=== PATIENT | female | born 1945 | race Caucasian/White ===

== ENCOUNTER 2018-02-02 16:05 | Inpatient (IN) | payer OTHER ==
--- OUTSIDE RECORDS SUMMARY | 2018-02-02 16:10 | XMS REPORT | Clinical Summary ---
:1945 Author Organization [facility] Address [address] [place] [address] Phone Care Team Providers Name Role Phone Unavailable Primary Care Provider Unavailable Allergies No Known Allergies Current Medications Prescription Sig. Disp. Refills Start Date End Date Status sucralfate (CARAFATE) Take 1 g by Active 1 gram mouth 4 (four) tabletIndications: times daily. Liver mass, Hepatic fibrosis (HCC), Cancer screening, Elevated tumor markers levothyroxine Take 137 mcg by Active (SYNTHROID, mouth Every LEVOTHROID) 137 MCG morning on an tabletIndications: empty stomach. Liver mass, Hepatic fibrosis (HCC), Cancer screening, Elevated tumor markers furosemide (LASIX) 40 Take 40 mg by Active MG tabletIndications: mouth 2 (two) Liver mass, Hepatic times daily. fibrosis (HCC), Cancer screening, Elevated tumor markers gabapentin Take 300 mg by Active (NEURONTIN) 300 MG mouth 3 (three) capsuleIndications: times daily. Liver mass, Hepatic fibrosis (HCC), Cancer screening, Elevated tumor markers omeprazole (PRILOSEC) Take 20 mg by Active 20 MG mouth daily. capsuleIndications: Liver mass, Hepatic fibrosis (HCC), Cancer screening, Elevated tumor markers POTASSIUM CHLORIDE Take by mouth. Active ORALIndications: Liver mass, Hepatic fibrosis (HCC), Cancer screening, Elevated tumor markers atenolol (TENORMIN) Take 50 mg by Active 50 MG mouth daily. tabletIndications: Liver mass, Hepatic fibrosis (HCC), Cancer screening, Elevated tumor markers PARoxetine (PAXIL) 10 Take 10 mg by Active MG tabletIndications: mouth every Liver mass, Hepatic morning. fibrosis (HCC), Cancer screening, Elevated tumor markers aspirin 81 MG EC Take 81 mg by Active tabletIndications: mouth daily. Liver mass, Hepatic fibrosis (HCC), Cancer screening, Elevated tumor markers DULoxetine (CYMBALTA) Take 60 mg by 01/15/2018 Discontinued 60 MG capsule mouth daily. meloxicam (MOBIC) 15 Take 15 mg by 01/15/2018 Discontinued MG tablet mouth daily. pravastatin Take 40 mg by 01/15/2018 Discontinued (PRAVACHOL) 40 MG mouth daily. tablet levothyroxine Take 200 mcg by 01/15/2018 Discontinued (SYNTHROID, mouth daily. LEVOTHROID) 200 MCG tablet atenolol (TENORMIN) Take 25 mg by 01/15/2018 Discontinued 25 MG tablet mouth daily. Active Problems Problem Noted Date Hepatic fibrosis (HCC) 01/15/2018 Elevated tumor markers 01/15/2018 Peripheral edema 01/15/2018 Fatty liver 01/15/2018 Liver mass 01/11/2013 Metabolic syndrome 01/11/2013 Screening for endocrine/metabolic/immunity disorders 01/11/2013 Obesity 01/11/2013 Hyperlipidemia 01/11/2013 Cancer screening 01/11/2013 Encounters Date Type Specialty Care Team Description 02/02/2018 Abstract Hepatology Diana Silvestre MA 01/23/2018 Hospital Encounter Radiology O'Marisela, Liver mass;Hepatic Em Tejada MD fibrosis (HCC);Cancer screening;Elevated tumor markers 01/15/2018 Office Visit Transplant Ash Villalpando, Liver mass (Primary Hepatology MD Dx);Hepatic O'Marisela, fibrosis Em Tejada MD (HCC);Cancer screening;Elevated tumor markers;Screening for endocrine/metabolic /immunity disorders;Periphera l edema;Fatty liver 01/09/2018 Documentation Transplant Shira Siddiqi MA after 02/01/2017 Family History Medical History Relation Name Comments Brain cancer Brother Cancer Father Heart disease Mother Heart failure Mother Cancer Sister Heart disease Sister Relation Name Status Comments Brother Brother Father Mother Sister Social History Tobacco Use Types Packs/Day Years Used Date Never Smoker Smokeless Tobacco: Never Used Alcohol Use Drinks/Week oz/Week Comments No Sex Assigned at Date Recorded Not on file Last Filed Vital Signs Vital Sign Reading Time Taken Blood Pressure 108/69 01/15/2018 9:36 AM CDT Pulse 73 01/15/2018 9:36 AM CDT Temperature 36.8 C (98.2 F) 01/15/2018 9:36 AM CDT Respiratory Rate 20 01/15/2018 9:36 AM CDT Oxygen Saturation 95% 01/15/2018 9:36 AM CDT Inhaled Oxygen Concentration - - Weight 100.1 kg (220 lb 9.6 oz) 01/15/2018 9:36 AM CDT Height 170.2 cm (5' 7") 01/15/2018 9:36 AM CDT Body Mass Index 34.55 01/15/2018 9:36 AM CDT Plan of Treatment Date Type Specialty Care Team Description 02/05/2018 Office Visit Transplant Hepatology Resource, [facility] Hepatobiliary Surgery Health Maintenance Due Date Last Done Comments INFLUENZA VACCINE 03/09/2018 Results MRI abdomen with and without contrast (01/23/2018 9:23 AM) Specimen Performing Laboratory [employer] Narrative FINAL REPORT MRI of the abdomen with and without contrast Clinical History: right lobe cystic liver mass Technique: Multiplanar and multisequence MR images of the abdomen are obtained before and after intravenous contrast administration. Contrast is administered to evaluate neoplasm and vasculature. Comparison: MRI dated November 04, 2013, January 20, 2013, and CT dated May 22, 2012 (performed at an outside institution) Discussion: Liver is cirrhotic, progressed since the prior exam. Previously seen cystic lesion at the right hepatic dome has significantly decreased in size, now measuring 3.6 x 3.2 cm, compared to 9.1 x 9.7 cm previously. It demonstrates a T2 hypointense and mildly enhancing rim. No nodular component is identified. In the posterior right hepatic lobe, there is a new vaguely T1 and T2 hyperintense lesion measuring approximately 3.3 x 3.5 cm, demonstrating gradual centripetal enhancement. There is mild biliary ductal dilatation peripheral to this lesion, which is also new. It is highly suspicious for neoplasm, possibly a cholangiocarcinoma. A T2 dark nonenhancing focus in segment 4 of the liver is unchanged, compatible with a granuloma. Gallbladder has been removed. CBD is mildly prominent, measuring 9 mm in diameter. Hepatic vasculature is patent. The main portal vein measures 14 mm. Spleen is enlarged and measures 14.3 cm sagittally. It contains several stable nonenhancing calcified granulomas. The pancreas, adrenal glands and kidneys are unremarkable. A few mildly enlarged sindy abscess lymph nodes are nonspecific. No ascites. Varices are present. Osseous structures demonstrate degenerative changes. No suspicious bony lesion is identified. In the right breast, there is a 2.5 cm enhancing nodular focus, more prominent compared to the prior studies. Impression: Cirrhosis, and splenomegaly. Previously seen complex cystic lesion at the right hepatic dome has significantly decreased in size, demonstrate mild rim enhancement, but no solid component identified. New 3.5 x 3.3 cm lesion in posterior right hepatic lobe, demonstrating mild gradual enhancement, and peripheral biliary ductal dilatation, highly suspicious for neoplasm, such as cholangiocarcinoma. A 2.5 cm enhancing nodular focus in the right breast may reflect confluent glandular tissue, but appears more prominent compared to the prior exams. Suggest sonographic/mammographic correlation when clinically appropriate. Status post cholecystectomy. Mild CBD dilation. Signed: Elli Venegas MD Report Verified Date/Time:01/23/2018 10:16:08 Reading Location: [address] Radiology Reading Room Procedure Note Interface, External Ris In - 01/23/2018 10:18 AM CDT FINAL REPORT MRI of the abdomen with and without contrast Clinical History: right lobe cystic liver mass Technique: Multiplanar and multisequence MR images of the abdomen are obtained before and after intravenous contrast administration. Contrast is administered to evaluate neoplasm and vasculature. Comparison: MRI dated November 04, 2013, January 20, 2013, and CT dated May 22, 2012 (performed at an outside institution) Discussion: Liver is cirrhotic, progressed since the prior exam. Previously seen cystic lesion at the right hepatic dome has significantly decreased in size, now measuring 3.6 x 3.2 cm, compared to 9.1 x 9.7 cm previously. It demonstrates a T2 hypointense and mildly enhancing rim. No nodular component is identified. In the posterior right hepatic lobe, there is a new vaguely T1 and T2 hyperintense lesion measuring approximately 3.3 x 3.5 cm, demonstrating gradual centripetal enhancement. There is mild biliary ductal dilatation peripheral to this lesion, which is also new. It is highly suspicious for neoplasm, possibly a cholangiocarcinoma. A T2 dark nonenhancing focus in segment 4 of the liver is unchanged, compatible with a granuloma. Gallbladder has been removed. CBD is mildly prominent, measuring 9 mm in diameter. Hepatic vasculature is patent. The main portal vein measures 14 mm. Spleen is enlarged and measures 14.3 cm sagittally. It contains several stable nonenhancing calcified granulomas. The pancreas, adrenal glands and kidneys are unremarkable. A few mildly enlarged sindy abscess lymph nodes are nonspecific. No ascites. Varices are present. Osseous structures demonstrate degenerative changes. No suspicious bony lesion is identified. In the right breast, there is a 2.5 cm enhancing nodular focus, more prominent compared to the prior studies. Impression: Cirrhosis, and splenomegaly. Previously seen complex cystic lesion at the right hepatic dome has significantly decreased in size, demonstrate mild rim enhancement, but no solid component identified. New 3.5 x 3.3 cm lesion in posterior right hepatic lobe, demonstrating mild gradual enhancement, and peripheral biliary ductal dilatation, highly suspicious for neoplasm, such as cholangiocarcinoma. A 2.5 cm enhancing nodular focus in the right breast may reflect confluent glandular tissue, but appears more prominent compared to the prior exams. Suggest sonographic/mammographic correlation when clinically appropriate. Status post cholecystectomy. Mild CBD dilation. Signed: Elli Venegas MD Report Verified Date/Time: 01/23/2018 10:16:08 Reading Location: [address] Radiology Reading Room Hepatitis A antibody, IgG (01/15/2018 10:58 AM) Component Value Ref Range Hep A IgG Nonreactive Nonreactive Specimen Performing Laboratory Blood [facility] [address] [address] CBC with platelet count + automated diff (01/15/2018 10:58 AM) Component Value Ref Range WBC 7.3 3.5 - 10.5 K/L RBC 5.24 (H) 3.93 - 5.22 M/L Hemoglobin 13.2 11.2 - 15.7 GM/DL Hematocrit 44.8 34.1 - 44.9 % MCV 85.5 79.4 - 94.8 fL MCH 25.2 (L) 25.6 - 32.2 pg MCHC 29.5 (L) 32.2 - 35.5 GM/DL RDW 16.3 (H) 11.7 - 14.4 % Platelets 177 150 - 450 K/CU MM MPV 12.4 (H) 9.4 - 12.3 fL nRBC 0 0 - 0 /100 WBC % Neutros 65 % % Lymphs 24 % % Monos 7 % % Eos 2 % % Baso 2 % # Neutros 4.78 1.56 - 6.13 K/L # Lymphs 1.73 1.18 - 3.74 K/L # Monos 0.54 (H) 0.24 - 0.36 K/L # Eos 0.15 0.04 - 0.36 K/L # Baso 0.11 (H) 0.01 - 0.08 K/L Immature Granulocytes-Relative 0 0 - 1 % Specimen Performing Laboratory Blood [address] [address] Hepatitis A antibody, IgM (01/15/2018 10:58 AM) Component Value Ref Range Hep A IgM Nonreactive Nonreactive Specimen Performing Laboratory Blood [address] [address] Carbohydrate antigen 19-9 (CA 19-9) (01/15/2018 10:58 AM) Component Value Ref Range CA 19-9 208 (H) <34 U/mL Comment: This test was performed using the Siemens (Adatao) Chemiluminescent method. Values obtained from different assay methods cannot be used interchangeably. CA19-9 levels, regardless of value, should not be interpreted as absolute evidence of the presence or absence of disease. Specimen Performing Laboratory Blood [facility] [address] [address] Narrative Performing Lab [facility] [address] [address] Benjie Vazquez MD, PhD, REINIER Alpha fetoprotein (AFP), tumor marker (01/15/2018 10:58 AM) Component Value Ref Range Alpha-Fetoprotein 3.4 <10.0 ng/mL Specimen Performing Laboratory Blood [address] [address] CBC with platelet count + automated diff (01/15/2018 10:58 AM) Specimen Performing Laboratory Blood [facility] ([facility]) Narrative The following orders were created for panel order CBC with platelet count + automated diff. Procedure Abnormality Status --------- ------ CBC with platelet count ...[[id number]]AbnormalFinal result Please view results for these tests on the individual orders. Anti-Nuclear Antibody (MESSI) (01/15/2018 10:58 AM) Component Value Ref Range MESSI Negative Negative Specimen Performing Laboratory [address] [address] Narrative Test performed by IFA method. Test performed by IFA method. Ferritin (01/15/2018 10:58 AM) Component Value Ref Range Ferritin 33 5 - 275 ng/mL Specimen Performing Laboratory Blood [address] [address] Carcinoembryonic Antigen (CEA) (01/15/2018 10:58 AM) Component Value Ref Range CEA, SERUM 1.6 0.0 - 5.0 ng/mL Specimen Performing Laboratory [address] [address] Iron, TIBC, % sat. (without ferritin) (01/15/2018 10:57 AM) Component Value Ref Range Iron 41 40 - 160 ug/dL TIBC 358 250 - 450 ug/dL Iron % Saturation 11 (L) 20 - 55 % Specimen Performing Laboratory Blood [address] [address] Hepatitis C antibody (01/15/2018 10:57 AM) Component Value Ref Range Hepatitis C Ab Nonreactive Nonreactive Specimen Performing Laboratory Blood [address] [address] Actin (Smooth Muscle) Antibody, IgG (01/15/2018 10:57 AM) Component Value Ref Range Anti-Smooth Muscle Ab <20 See Note: U Comment: Reference Range: <20 NEGATIVE > OR=20 POSITIVE Antibodies recognizing actin are the main component of smooth muscle antibodies associated with autoimmune liver disease. Actin antibodies are found in approximately 75% of patients with autoimmune hepatitis (AIH) type 1, approximately 65% of patients with autoimmune cholangitis, approximately 30% of patients with primary biliary cirrhosis, and approximately 2% of healthy people. High values are closely correlated with AIH type 1. Specimen Performing Laboratory Blood [facility] [address] [address] Narrative Performing Lab [facility] [address] [address] Benjie Vazquez MD, PhD, REINIER Hepatitis B core antibody, total (01/15/2018 10:57 AM) Component Value Ref Range Hep B Core Total Ab Nonreactive Nonreactive Specimen Performing Laboratory Blood [address] [address] Hepatitis B surface antibody (01/15/2018 10:57 AM) Component Value Ref Range Hep B S Ab <8.0 <8.0 mIU/mL Specimen Performing Laboratory Blood [address] [address] Hepatitis B surface antigen (01/15/2018 10:57 AM) Component Value Ref Range hepatitis B Surface Ag Nonreactive Nonreactive Specimen Performing Laboratory Blood [address] [address] Prothrombin time/INR (01/15/2018 10:57 AM) Component Value Ref Range Protime 16.8 (H) 11.7 - 14.7 seconds INR 1.4 <=5.9 Specimen Performing Laboratory [address] [address] Narrative RECOMMENDED COUMADIN/WARFARIN INR THERAPY RANGES STANDARD DOSE: 2.0 - 3.0 Includes: PROPHYLAXIS for venous thrombosis, systemic embolization; TREATMENT for venous thrombosis and/or pulmonary embolus. HIGH RISK: Target INR is 2.5-3.5 for patients with mechanical heart valves. Cancer Antigen 125 (CA 125) (01/15/2018 10:57 AM) Component Value Ref Range CA 125 221 (H) <35 U/mL Comment: This test was performed using the [employer]al[employer] [place] Chemiluminescent method. Values obtained from different assay methods cannot be used interchangeably. CA 125 levels, regardless of value, should not be interpreted as absolute evidence of the presence or absence of disease. Specimen Performing Laboratory Blood [facility] [id number] [place] [address] Narrative Performing Lab [facility] [address] [address] Benjie Vazquez MD, PhD, REINIER Gamma Glutamyl Transferase (GGT) (01/15/2018 10:57 AM) Component Value Ref Range GGT 130 (H) 9 - 64 U/L Specimen Performing Laboratory Blood [address] [address] Hepatic function panel (01/15/2018 10:57 AM) Component Value Ref Range Protein, Total 7.7 6.0 - 8.3 gm/dL Albumin 3.5 3.5 - 5.0 g/dL Total Bilirubin 1.2 0.2 - 1.2 mg/dL Bilirubin, Direct 0.6 (H) 0.1 - 0.5 mg/dL Alkaline Phosphatase 136 40 - 150 U/L AST 46 (H) 5 - 34 U/L ALT 18 6 - 55 U/L Specimen Performing Laboratory Blood [address] [address] Basic Metabolic Panel (01/15/2018 10:57 AM) Component Value Ref Range Sodium 142 136 - 145 meq/L Potassium 3.5 3.5 - 5.1 meq/L Chloride 99 98 - 107 meq/L CO2 31 (H) 22 - 29 meq/L BUN 14 7 - 21 mg/dL Creatinine 0.96 0.57 - 1.25 mg/dL Glucose 161 (H) 70 - 105 mg/dL Calcium 9.0 8.4 - 10.2 mg/dL EGFR 57Comment: ESTIMATED GFR IS NOT ACCURATE mL/min/1.73 sq m CREATININE CLEARANCE IN PREDICTING GLOMERULAR FILTRATION RATE. ESTIMATED GFR IS NOT APPLICABLE FOR DIALYSIS PATIENTS. Specimen Performing Laboratory Blood [address] [address] after 02/01/2017
--- OUTSIDE RECORDS SUMMARY | 2018-02-02 16:11 | XMS REPORT ---
:11/12/1944 [facility] Address [address] [place] [address] [address]. [address] [place] [address] Care Team Providers Name Role Phone GENETABRAHAM ALAN Unavailable Unavailable CRISTOBAL MCCALLUM Unavailable Unavailable MARIA TERESA MACIAS Unavailable Unavailable Problems This patient has no known problems. Allergies, Adverse Reactions, Alerts This patient has no known allergies or adverse reactions. Medications This patient has no known medications. Results Test Description Test Time Test Comments Text Results Atomic Results Result Comments MR, ABDOMEN, 2018-01-23 Referring: FINAL REPORT PATIENT ID: WITH 10:16:00 Cristobal Mccallum [id number] MRI of the abdomen (Old/new with and without contrast pt.)Include Clinical History: right lobe Abdominal cystic liver mass [facility] and multisequence [facility] MR images of the abdomen are obtained [...] post cholecystectomy. Mild CBD dilation. Signed: [facility] Verified Date/Time: 01/23/2018 10:16:08 Reading Location: [address] Radiology Reading Room -NUCLEAR ANTIBODY (MESSI) 2018-01-16 10:59:00 Test Item Value Reference Range Comments ANTI-NUCLEAR ANTIBODY (MESSI) (BEAKER) (test riyc=758) Negative Negative Test performed by IFA method.Test performed by IFA method.HEPATITIS A ANTIBODY, [id number] 15:33:00 Test Item Value Reference Range Comments HEPATITIS A IGM ANTIBODY (BEAKER) (test Nonreactive Nonreactive lcme=627) HEPATITIS A ANTIBODY, [id number] 15:33:00 Test Item Value Reference Range Comments HEPATITIS A IGG ANTIBODY (BEAKER) (test Nonreactive Nonreactive afcb=1685) HEPATITIS B SURFACE [id number] 15:33:00 Test Item Value Reference Range Comments HEPATITIS B SURFACE ANTIBODY (BEAKER) (test < mIU/mL <8.0 lsho=159) HEPATITIS B SURFACE [id number] 15:32:00 Test Item Value Reference Range Comments HEPATITIS B SURFACE ANTIGEN (2) (BEAKER) (test Nonreactive Nonreactive zdkq=3336) HEPATITIS C [id number] 15:32:00 Test Item Value Reference Range Comments HEPATITIS C ANTIBODY (BEAKER) (test byne=396) Nonreactive Nonreactive HEPATITIS B CORE ANTIBODY, [id number] 15:32:00 Test Item Value Reference Range Comments HEPATITIS B CORE TOTAL ANTIBODY (BEAKER) (test Nonreactive Nonreactive cjrh=801) CARCINOEMBRYONIC ANTIGEN (CEA)2018-01-15 13:34:00 Test Item Value Reference Range Comments CARCINOEMBRYONIC ANTIGEN (BEAKER) (test fgzw=699) 1.6 ng/mL 0.0-5.0 [id number] 13:34:00 Test Item Value Reference Range Comments FERRITIN (BEAKER) (test emmr=499) 33 ng/mL 5-275 ALPHA FETOPROTEIN (AFP), TUMOR [id number] 13:34:00 Test Item Value Reference Range Comments ALPHA-FETOPROTEIN (BEAKER) (test bejx=6030) 3.4 ng/mL <10.0 HEPATIC FUNCTION [id number] 13:14:00 Test Item Value Reference Range Comments TOTAL PROTEIN (BEAKER) (test mdva=181) 7.7 gm/dL 6.0-8.3 ALBUMIN (BEAKER) (test bacx=3611) 3.5 g/dL 3.5-5.0 BILIRUBIN TOTAL (BEAKER) (test cxda=944) 1.2 mg/dL 0.2-1.2 BILIRUBIN DIRECT (BEAKER) (test ctvs=018) 0.6 mg/dL 0.1-0.5 ALKALINE PHOSPHATASE (BEAKER) (test twyx=509) 136 U/L 40-150 AST (SGOT) (BEAKER) (test epkz=032) 46 U/L 5-34 ALT (SGPT) (BEAKER) (test mzzc=882) 18 U/L 6-55 BASIC METABOLIC [id number] 13:14:00 Test Item Value Reference Range Comments SODIUM (BEAKER) (test 142 meq/L 136-145 esql=157) POTASSIUM (BEAKER) (test 3.5 meq/L 3.5-5.1 eoik=629) CHLORIDE (BEAKER) (test 99 meq/L 98-107 qlag=060) CO2 (BEAKER) (test 31 meq/L 22-29 frih=534) BLOOD UREA NITROGEN 14 mg/dL 7-21 (BEAKER) (test lbtf=413) CREATININE (BEAKER) (test 0.96 mg/dL 0.57-1.25 oasl=096) GLUCOSE RANDOM (BEAKER) 161 mg/dL 70-105 (test swow=986) CALCIUM (BEAKER) (test 9.0 mg/dL 8.4-10.2 yxxx=359) EGFR (BEAKER) (test 57 mL/min/1.73 sq m ESTIMATED GFR IS NOT qovm=6485) ACCURATE CREATININE CLEARANCE IN PREDICTING GLOMERULAR FILTRATION RATE. ESTIMATED GFR IS NOT APPLICABLE FOR DIALYSIS PATIENTS. GAMMA GLUTAMYL TRANSFERASE (GGT)2018-01-15 13:14:00 Test Item Value Reference Range Comments GAMMA GLUTAMYL TRANSFERASE (BEAKER) (test kyhd=586) 130 U/L 9-64 IRON, TIBC, % SAT. (WITHOUT FERRITIN)2018-01-15 13:12:00 Test Item Value Reference Range Comments IRON (BEAKER) (test obtz=908) 41 ug/dL 40-160 TOTAL IRON BINDING CAPACITY (BEAKER) (test 358 ug/dL 250-450 wmfn=427) IRON % SATURATION (2) (BEAKER) (test wcai=6096) 11 % 20-55 CBC W/PLT COUNT & AUTO [id number] 13:00:00 Test Item Value Reference Range Comments WHITE BLOOD CELL COUNT (BEAKER) (test msfa=419) 7.3 K/ L 3.5-10.5 RED BLOOD CELL COUNT (BEAKER) (test yold=892) 5.24 M/ L 3.93-5.22 HEMOGLOBIN (BEAKER) (test svfd=454) 13.2 GM/DL 11.2-15.7 HEMATOCRIT (BEAKER) (test oald=070) 44.8 % 34.1-44.9 MEAN CORPUSCULAR VOLUME (BEAKER) (test rxrw=779) 85.5 fL 79.4-94.8 MEAN CORPUSCULAR HEMOGLOBIN (BEAKER) (test 25.2 pg 25.6-32.2 rpeh=719) MEAN CORPUSCULAR HEMOGLOBIN CONC (BEAKER) (test 29.5 GM/DL 32.2-35.5 doym=612) RED CELL DISTRIBUTION WIDTH (BEAKER) (test 16.3 % 11.7-14.4 nhdc=577) PLATELET COUNT (BEAKER) (test taoe=083) 177 K/CU MM 150-450 MEAN PLATELET VOLUME (BEAKER) (test gvnl=649) 12.4 fL 9.4-12.3 NUCLEATED RED BLOOD CELLS (BEAKER) (test 0 /100 WBC 0-0 vjiw=512) NEUTROPHILS RELATIVE PERCENT (BEAKER) (test 65 % tofv=257) LYMPHOCYTES RELATIVE PERCENT (BEAKER) (test 24 % vqzk=726) MONOCYTES RELATIVE PERCENT (BEAKER) (test 7 % doxg=107) EOSINOPHILS RELATIVE PERCENT (BEAKER) (test 2 % vkoy=617) BASOPHILS RELATIVE PERCENT (BEAKER) (test 2 % zvbi=155) NEUTROPHILS ABSOLUTE COUNT (BEAKER) (test 4.78 K/ L 1.56-6.13 glgt=986) LYMPHOCYTES ABSOLUTE COUNT (BEAKER) (test 1.73 K/ L 1.18-3.74 mler=346) MONOCYTES ABSOLUTE COUNT (BEAKER) (test 0.54 K/ L 0.24-0.36 chow=921) EOSINOPHILS ABSOLUTE COUNT (BEAKER) (test 0.15 K/ L 0.04-0.36 zuyr=890) BASOPHILS ABSOLUTE COUNT (BEAKER) (test 0.11 K/ L 0.01-0.08 cekg=872) IMMATURE GRANULOCYTES-RELATIVE PERCENT (BEAKER) 0 % 0-1 (test zpkt=9469) PROTHROMBIN TIME/[id number] 12:59:00 Test Item Value Reference Range Comments PROTIME (BEAKER) (test hsgc=667) 16.8 seconds 11.7-14.7 INR (BEAKER) (test jyfb=774) 1.4 <=5.9 RECOMMENDED COUMADIN/WARFARIN INR THERAPY RANGESSTANDARD DOSE: 2.0 - 3.0 Includes: PROPHYLAXIS forvenous thrombosis, systemic embolization; TREATMENT for venous thrombosis and/or pulmonary embolus.HIGH RISK: Target INR is 2.5-3.5 for patients with mechanical heart valves.CULTURE, [id number] 05:41: 00Specimen: Urine SpecimensCollected: 12/30/2017 14:32 Status: Final Last Updated: 01/02/2018 05:41 Culture Result (Final) (R) (Final) >100 ,000 cc/mL Gram Negative Bacilli 50,000 -100,000 cc/mL Enterococcus species Isolate (Final) (C) (Final) Escherichia coli ESBLAmoxicillin/clavu 4 S Ampicillin >=32 R Aztreonam R Cefazolin >=64 R Cefepime R Ceftriaxone >=64 R Ciprofloxacin >=4 R Gentamicin <=1 SImipenem <=0.25 S Levofloxacin >=8 R Meropenem <=0.25 S Nitrofurantoin <=16 S Tetracycline <=1 S Trimeth/Sulfa <=20 S ESBL Positive + Isolate (Final) (Final) Enterococcus faecalis Ampicillin <=2 S Ciprofloxacin >=8 R Erythromycin >=8 R Gentamicin Synergy SYN-S S Levofloxacin >=8 R Linezolid 2 S Nitrofurantoin <=16 S Streptomycin Synergy SYN-R R Tetracycline <=1 S Tigecycline <=0.12 S Vancomycin 1 SURINALYSIS WITH [id number] 15:15:00 Test Item Value Reference Range Comments Color (test code=UCOLR) Yellow Clarity (test code=UCLAR) CLEAR Glucose (test code=UGLUC) NEGATIVE NEGATIVE Bilirubin (test code=UBILI) SMALL NEGATIVE Ketones (test code=UKET) NEGATIVE NEGATIVE Specific [place] (test code=USPGR) 1.025 1.005-1.030 Blood (test code=UBLD) TRACE-LYSED NEGATIVE PH (test code=UPH) 6.0 4.5-8.0 Protein (test code=UPROT) TRACE NEGATIVE Urobilinogen (test code=U UROB) 1.0 >0.2 Nitrite (test code=UNITR) NEGATIVE NEGATIVE Leukocyte Esterase (test code=ULEUK) NEGATIVE NEGATIVE WBC (test code=WBCUR) 20-30 0-5 Epithial Cells (test code=U EPI) 0-5 0-10 Bacteria (test code=UBACT) 2+ None Seen,Trace [id number] 15:03:00 Test Item Value Reference Range Comments Glucose (test code=GLU) 169 mg/dl 75-110 BUN (test code=BUN) 11.0 mg/dl 6.0-17.0 Creatinine (test 0.8 mg/dl 0.4-1.2 code=CREA) Sodium (test code=NA) 136 mmol/l 137-145 Potassium (test code=K) 3.1 mmol/l 3.5-5.0 Chloride (test code=CL) 92 mmol/l 98-107 CO2 (test code=CO2) 29 mmol/l 22-30 Calcium (test code=CALC) 8.5 mg/dl 8.4-10.2 EGFR if >60 (test code=EGFRAA) mL/min/1.73m\\S\\2 EGFR if Non- >60 Estimated Glomerular [place] (test mL/min/1.73m\\S\\2 Filtration Rate (eGFR) code=EGFRNA) Reference Intervals Decision Points for 18 years and older and average body mass: >=60 Does not exclude kidney disease. 30 - 59 Suggests moderate chronic kidney disease and indicates the need for further investigation including assessment of proteinuria and cardiovascular factors. < 30 Usually indicates a need for referral for assessment and management of chronic kidney failure. CULTURE, [id number] 08:45:00Specimen: BloodCollected: 11/28/2017 23:11 Status: Final Last Updated: 12/04/2017 08:38 Culture Result (Final) (Final ) No Growth After 5 DaysCULTURE, [id number] 08:41:00Specimen: BloodCollected: 11/28/2017 23:11 Status: Final Last Updated: 12/04/2017 08: 38 Culture Result (Final) (Final) No Growth After 5 DaysCULTURE, [id number] 06:21:00Specimen: Urine SpecimensCollected: 11/28/2017 16:22 Status: Final Last Updated: 12/04/2017 06:21 Culture Result (Final) (Final) & gt;100,000 cc/mL Gram Negative Bacilli Isolate (Final) (C) (Final) Escherichia coli ESBL Strains of Klebsiella spp. and Escherichia coli may be clinically resistant to cephalosporin and aztreonam therapy by virtue of extended- spectrum B-lactamase (ESBL) production, despite apparent in vitro susceptibility to some of these agents.Multi-drug resistantorganism isolated. Recommendation------Isolation protocol. Amoxicillin/clavu 16 I Ampicillin >=32 R Aztreonam R Cefazolin >=64 R Cefepime R Ceftriaxone >=64 R Ciprofloxacin >=4 R Gentamicin <=1 S Imipenem <=0.25 S Levofloxacin >=8 R Meropenem <=0.25 S Nitrofurantoin <=16 S Tetracycline <=1 S Trimeth/Sulfa <=20 S ESBL Positive [id number] 05:36:00 Test Item Value Reference Range Comments Glucose (test code=GLU) 89 mg/dl 75-110 BUN (test code=BUN) 13.0 mg/dl 6.0-17.0 Creatinine (test 0.9 mg/dl 0.4-1.2 code=CREA) Sodium (test code=NA) 139 mmol/l 137-145 Potassium (test code=K) 4.1 mmol/l 3.5-5.0 Chloride (test code=CL) 105 mmol/l 98-107 CO2 (test code=CO2) 30 mmol/l 22-30 Calcium (test code=CALC) 8.5 mg/dl 8.4-10.2 EGFR if >60 (test code=EGFRAA) mL/min/1.73m\\S\\2 EGFR if Non- >60 Estimated Glomerular [place] (test mL/min/1.73m\\S\\2 Filtration Rate (eGFR) code=EGFRNA) Reference Intervals Decision Points for 18 years and older and average body mass: >=60 Does not exclude kidney disease. 30 - 59 Suggests moderate chronic kidney disease and indicates the need for further investigation including assessment of proteinuria and cardiovascular factors. < 30 Usually indicates a need for referral for assessment and management of chronic kidney failure. CBC WITH AUTO [id number] 05:28:00 Test Item Value Reference Range Comments WBC (test code=WBC) 7.66 10\\S\\3/ul 4.80-10.80 RBC (test code=RBC) 4.51 10\\S\\6/ul 4.20-5.40 Hemoglobin (test code=HGB) 11.7 gm/dl 12.0-14.0 Hematocrit (test code=HCT) 37.7 % 37.0-47.0 MCV (test code=MCV) 83.6 fL 81.0-99.0 MCH (test code=MCH) 25.9 pg 27.0-31.0 MCHC (test code=MCHC) 31.0 gm/dl 33.0-37.0 RDW (test code=RDWVC) 16.2 % 11.5-14.5 Platelet (test code=PLT) 135 10\\S\\3/ul 130-400 MPV (test code=MPV) 12.2 fL 7.4-10.4 "NOT MEASURED" RESULTS ARE DISPLAYED WHEN THE INSTRUMENT HAS A SUPPRESSED OR UNREPORTABLE RESULT. THIS WILL MOST OFTEN HAPPEN WITH THE MPV WHEN THERE IS AN ABNORMAL PLATELET DISTRIBUTION DUE TO A CRITICAL LOW VALUE OR PLATELET CLUMPING. THE RDW MAY BE SUPPRESSED IF THERE ARE MULTIPLE PEAKS PRESENT ON THE RBC HISTOGRAM. IN THIS CASE, A MANUAL REVIEW OF THE SLIDE WILL BE PERFORMED, AND RBC MORPHOLOGY WILL BE NOTED ON THE REPORT. NE% (test code=NE) 52.9 % 42.0-75.0 LY% (test code=LY) 31.9 % 13.0-42.0 MO% (test code=MO) 7.0 % 4.0-14.0 EO% (test code=EO) 6.7 % 1.0-3.0 BA% (test code=BA) 1.2 % 1.0-3.0 IG% (test code=IG%) 0.3 % 0.0-0.4 [id number] 06:44:00 Test Item Value Reference Range Comments Glucose (test code=GLU) 91 mg/dl 75-110 BUN (test code=BUN) 15.0 mg/dl 6.0-17.0 Creatinine (test 0.8 mg/dl 0.4-1.2 code=CREA) Sodium (test code=NA) 136 mmol/l 137-145 Potassium (test code=K) 4.3 mmol/l 3.5-5.0 Chloride (test code=CL) 101 mmol/l 98-107 CO2 (test code=CO2) 30 mmol/l 22-30 Calcium (test code=CALC) 8.5 mg/dl 8.4-10.2 EGFR if >60 (test code=EGFRAA) mL/min/1.73m\\S\\2 EGFR if Non- >60 Estimated Glomerular [place] (test mL/min/1.73m\\S\\2 Filtration Rate (eGFR) code=EGFRNA) Reference Intervals Decision Points for 18 years and older and average body mass: >=60 Does not exclude kidney disease. 30 - 59 Suggests moderate chronic kidney disease and indicates the need for further investigation including assessment of proteinuria and cardiovascular factors. < 30 Usually indicates a need for referral for assessment and management of chronic kidney failure. [id number] 15:54:00 Test Item Value Reference Range Comments Potassium (test code=K) 4.2 mmol/l 3.5-5.0 [id number] 06:19:00 Test Item Value Reference Range Comments Glucose (test code=GLU) 91 mg/dl 75-110 BUN (test code=BUN) 13.0 mg/dl 6.0-17.0 Creatinine (test 0.8 mg/dl 0.4-1.2 code=CREA) Sodium (test code=NA) 135 mmol/l 137-145 Potassium (test code=K) 3.6 mmol/l 3.5-5.0 Chloride (test code=CL) 97 mmol/l 98-107 CO2 (test code=CO2) 33 mmol/l 22-30 Calcium (test code=CALC) 8.4 mg/dl 8.4-10.2 T Protein (test code=TP) 6.1 gm/dl 5.1-8.7 Albumin (test code=ALB) 2.9 gm/dl 3.5-4.6 A/G Ratio (test 0.9 % 1.1-2.2 code=AGRAT) AST (SGOT) (test 68 U/L 11-36 code=AST) ALT (SGPT) (test 28 U/L 11-40 code=ALT) Alkaline Phos (test 118 U/L 47-114 code=ALKP) Total Bilirubin (test 1.2 mg/dl 0.2-1.2 code=TBIL) Globulin (test 3.2 gm/dl 2.3-3.5 code=GLOBU) Anion Gap (test 5 code=GAP) Calcium, Corrected (test 9.3 mg/dl 8.4-10.2 Various formulas exist for code=CALCCORR) corrected serum calcium results, each yielding different values. This corrected result was based on the formula: Corrected Calcium=SerumCalcium + [0.8 * ( 4 - SerumAlbumin)] EGFR if >60 (test code=EGFRAA) mL/min/1.73m\\S\\2 EGFR if Non- >60 Estimated Glomerular [place] (test mL/min/1.73m\\S\\2 Filtration Rate (eGFR) code=EGFRNA) Reference Intervals Decision Points for 18 years and older and average body mass: >=60 Does not exclude kidney disease. 30 - 59 Suggests moderate chronic kidney disease and indicates the need for further investigation including assessment of proteinuria and cardiovascular factors. < 30 Usually indicates a need for referral for assessment and management of chronic kidney failure. CBC WITH AUTO [id number] 05:53:00 Test Item Value Reference Range Comments WBC (test code=WBC) 8.16 10\\S\\3/ul 4.80-10.80 RBC (test code=RBC) 4.70 10\\S\\6/ul 4.20-5.40 Hemoglobin (test code=HGB) 12.1 gm/dl 12.0-14.0 Hematocrit (test code=HCT) 38.7 % 37.0-47.0 MCV (test code=MCV) 82.3 fL 81.0-99.0 MCH (test code=MCH) 25.7 pg 27.0-31.0 MCHC (test code=MCHC) 31.3 gm/dl 33.0-37.0 RDW (test code=RDWVC) 15.7 % 11.5-14.5 Platelet (test code=PLT) 141 10\\S\\3/ul 130-400 MPV (test code=MPV) 11.9 fL 7.4-10.4 NE% (test code=NE) 58.1 % 42.0-75.0 LY% (test code=LY) 27.8 % 13.0-42.0 MO% (test code=MO) 8.5 % 4.0-14.0 EO% (test code=EO) 4.5 % 1.0-3.0 BA% (test code=BA) 0.9 % 1.0-3.0 IG% (test code=IG%) 0.2 % 0.0-0.4 [id number] 10:18:00 Test Item Value Reference Range Comments Potassium (test code=K) 4.0 mmol/l 3.5-5.0 [id number] 05:50:00 Test Item Value Reference Range Comments Glucose (test code=GLU) 107 mg/dl 75-110 BUN (test code=BUN) 14.0 mg/dl 6.0-17.0 Creatinine (test 0.8 mg/dl 0.4-1.2 code=CREA) Sodium (test code=NA) 134 mmol/l 137-145 Potassium (test code=K) 3.1 mmol/l 3.5-5.0 Chloride (test code=CL) 92 mmol/l 98-107 CO2 (test code=CO2) 34 mmol/l 22-30 Calcium (test code=CALC) 8.3 mg/dl 8.4-10.2 T Protein (test code=TP) 6.7 gm/dl 5.1-8.7 Albumin (test code=ALB) 3.2 gm/dl 3.5-4.6 A/G Ratio (test 0.9 % 1.1-2.2 code=AGRAT) AST (SGOT) (test 77 U/L 11-36 code=AST) ALT (SGPT) (test 29 U/L 11-40 code=ALT) Alkaline Phos (test 134 U/L 47-114 code=ALKP) Total Bilirubin (test 1.0 mg/dl 0.2-1.2 code=TBIL) Globulin (test 3.5 gm/dl 2.3-3.5 code=GLOBU) Anion Gap (test 8 code=GAP) Calcium, Corrected (test 8.9 mg/dl 8.4-10.2 Various formulas exist for code=CALCCORR) corrected serum calcium results, each yielding different values. This corrected result was based on the formula: Corrected Calcium=SerumCalcium + [0.8 * ( 4 - SerumAlbumin)] EGFR if >60 (test code=EGFRAA) mL/min/1.73m\\S\\2 EGFR if Non- >60 Estimated Glomerular [place] (test mL/min/1.73m\\S\\2 Filtration Rate (eGFR) code=EGFRNA) Reference Intervals Decision Points for 18 years and older and average body mass: >=60 Does not exclude kidney disease. 30 - 59 Suggests moderate chronic kidney disease and indicates the need for further investigation including assessment of proteinuria and cardiovascular factors. < 30 Usually indicates a need for referral for assessment and management of chronic kidney failure. CBC WITH AUTO [id number] 05:30:00 Test Item Value Reference Range Comments WBC (test code=WBC) 8.64 10\\S\\3/ul 4.80-10.80 RBC (test code=RBC) 4.84 10\\S\\6/ul 4.20-5.40 Hemoglobin (test code=HGB) 12.6 gm/dl 12.0-14.0 Hematocrit (test code=HCT) 40.3 % 37.0-47.0 MCV (test code=MCV) 83.3 fL 81.0-99.0 MCH (test code=MCH) 26.0 pg 27.0-31.0 MCHC (test code=MCHC) 31.3 gm/dl 33.0-37.0 RDW (test code=RDWVC) 15.8 % 11.5-14.5 Platelet (test code=PLT) 169 10\\S\\3/ul 130-400 MPV (test code=MPV) 12.2 fL 7.4-10.4 NE% (test code=NE) 60.0 % 42.0-75.0 LY% (test code=LY) 25.7 % 13.0-42.0 MO% (test code=MO) 8.8 % 4.0-14.0 EO% (test code=EO) 4.3 % 1.0-3.0 BA% (test code=BA) 1.0 % 1.0-3.0 IG% (test code=IG%) 0.2 % 0.0-0.4 HEPATITIS PANEL (AMA [id number])2017-11-30 14:08:00 Test Item Value Reference Range Comments FT (test code=HAVIGM) Negative (qualifier value) Negative FT (test code=HBCIM) Negative (qualifier value) Negative FT (test code=HBSAG) Negative (qualifier value) Negative FT (test code=HCV) Negative (qualifier value) Negative HEPATIC FUNCTION PANEL (LIVER)2017-11-30 10:20:00 Test Item Value Reference Range Comments T Protein (test code=TP) 7.2 gm/dl 5.1-8.7 Albumin (test code=ALB) 3.5 gm/dl 3.5-4.6 AST (SGOT) (test code=AST) 64 U/L 11-36 ALT (SGPT) (test code=ALT) 26 U/L 11-40 Alkaline Phos (test code=ALKP) 125 U/L 47-114 Total Bilirubin (test code=TBIL) 1.1 mg/dl 0.2-1.2 Direct Bilirubin (test code=DBIL) 0.7 mg/dl 0.0-0.3 Indirect Bilirubin (test code=IBIL) 0.4 mg/dl 0.0-1.1 [id number] 08:39:00 Test Item Value Reference Range Comments Potassium (test code=K) 3.9 mmol/l 3.5-5.0 [id number] 02:39:00 Test Item Value Reference Range Comments Potassium (test code=K) 3.8 mmol/l 3.5-5.0 [id number] 19:48:00 Test Item Value Reference Range Comments Potassium (test code=K) 3.4 mmol/l 3.5-5.0 4 hour post [id number] 14:17:00 Test Item Value Reference Range Comments Potassium (test code=K) 3.0 mmol/l 3.5-5.0 [id number] 03:25:00 Test Item Value Reference Range Comments Glucose (test code=GLU) 109 mg/dl 75-110 BUN (test code=BUN) 24.0 mg/dl 6.0-17.0 Creatinine (test 1.0 mg/dl 0.4-1.2 code=CREA) Sodium (test code=NA) 135 mmol/l 137-145 Potassium (test code=K) 2.7 mmol/l 3.5-5.0 Chloride (test code=CL) 87 mmol/l 98-107 CO2 (test code=CO2) 37 mmol/l 22-30 Calcium (test code=CALC) 8.5 mg/dl 8.4-10.2 EGFR if >60 (test code=EGFRAA) mL/min/1.73m\\S\\2 EGFR if Non- 58 Estimated Glomerular [place] (test mL/min/1.73m\\S\\2 Filtration Rate (eGFR) code=EGFRNA) Reference Intervals Decision Points for 18 years and older and average body mass: >=60 Does not exclude kidney disease. 30 - 59 Suggests moderate chronic kidney disease and indicates the need for further investigation including assessment of proteinuria and cardiovascular factors. < 30 Usually indicates a need for referral for assessment and management of chronic kidney failure. Critical values were called to JAREK MUNGUIARN/MS@[email or web address] by [id number] on 2017 03:25 AM. Resultswere read back by JAREK MUNGUIA,RN/MS@[email or web address].[id number] 03:22:00 Test Item Value Reference Range Comments Magnesium (test code=MG) 1.4 mg/dl 1.6-2.3 CBC WITH AUTO [id number] 03:05:00 Test Item Value Reference Range Comments WBC (test code=WBC) 9.51 10\\S\\3/ul 4.80-10.80 RBC (test code=RBC) 5.38 10\\S\\6/ul 4.20-5.40 Hemoglobin (test code=HGB) 13.7 gm/dl 12.0-14.0 Hematocrit (test code=HCT) 43.7 % 37.0-47.0 MCV (test code=MCV) 81.2 fL 81.0-99.0 MCH (test code=MCH) 25.5 pg 27.0-31.0 MCHC (test code=MCHC) 31.4 gm/dl 33.0-37.0 RDW (test code=RDWVC) 15.6 % 11.5-14.5 Platelet (test code=PLT) 186 10\\S\\3/ul 130-400 MPV (test code=MPV) 11.9 fL 7.4-10.4 "NOT MEASURED" RESULTS ARE DISPLAYED WHEN THE INSTRUMENT HAS A SUPPRESSED OR UNREPORTABLE RESULT. THIS WILL MOST OFTEN HAPPEN WITH THE MPV WHEN THERE IS AN ABNORMAL PLATELET DISTRIBUTION DUE TO A CRITICAL LOW VALUE OR PLATELET CLUMPING. THE RDW MAY BE SUPPRESSED IF THERE ARE MULTIPLE PEAKS PRESENT ON THE RBC HISTOGRAM. IN THIS CASE, A MANUAL REVIEW OF THE SLIDE WILL BE PERFORMED, AND RBC MORPHOLOGY WILL BE NOTED ON THE REPORT. NE% (test code=NE) 64.0 % 42.0-75.0 LY% (test code=LY) 24.9 % 13.0-42.0 MO% (test code=MO) 8.7 % 4.0-14.0 EO% (test code=EO) 1.6 % 1.0-3.0 BA% (test code=BA) 0.7 % 1.0-3.0 IG% (test code=IG%) 0.1 % 0.0-0.4 CT ABDOMEN/PELVIS W/[id number] 17:36:10EXAM: CT Abdomen and Pelvis WITH contrastINDICATION: lower abd [id number]: 12/05/2016TECHNIQUE: Abdomen and pelvis were scanned utilizing a multidetector helicalscanner from the lung base to the pubic symphysis after administration of IVcontrast. Coronal and sagittal reformations were obtained. Routine protocol wasperformed. Scan was performed when during portal venous phase.IV CONTRAST: 100 mL of Isovue 300ORAL CONTRAST: WaterCOMPLICATIONS: NoneRADIATION DOSE:Total DLP: 1285 mGy*cmEstimated effective dose: (DLP x 0.015 x size factor) mSvCTDIvol has been reviewed. It is below the limits set by the RadiationProtocol Committee (RPC) .FINDINGS:LINES and TUBES: None.LOWER THORAX: Stable4 mm left lower lobe nodule (series 3 image 15).HEPATOBILIARY: Nodular contour of the liver. Ill- defined 2.5 cm hypoattenuatingarea in the right hepatic lobe (series 2 image 20 ) is increased in conspicuity.A partially calcified 4.3 x 3.7 cm lesion at the dome is grossly unchanged.Limited evaluation for hepatocellular carcinoma arterial phase. Calcifiedgranuloma in the liver. No biliary ductal dilation.GALLBLADDER: Stents.SPLEEN: No splenomegaly. Multiple calcified granulomas.PANCREAS: No focal masses or ductal dilatation.ADRENALS: No adrenal nodulesKIDNEYS/URETERS: Kidneys enhance symmetrically. No hydronephrosis. No cystic orsolid mass lesions. No stones.GI TRACT: No abnormal distention, suspicious wall thickening, or evidence ofbowel obstruction. Moderate clonic wall thickening may be relatedto portalcolopathy. There are diverticula within the colon without evidence ofdiverticulitis.PELVIC ORGANS/BLADDER: Unremarkable.LYMPH NODES: Prominent sindy hepatis lymph nodes.VESSELS: Recanalized umbilical vein.PERITONEUM / RETROPERITONEUM: No free air or fluid.BONES: Unremarkable.SOFT TISSUES: Left femoral intramedullary chase with chronic unhealed left femoralneck fracture. There is increased lucency surrounding the distal aspect of thescrew (coronal image 39).IMPRESSION:1. Cirrhosis with increased conspicuity of an ill-defined 2.5 cm area in theright hepatic lobe which is indeterminate. Recommend further evaluation withnonemergent abdominal MRI without and with contrast.2. Stable indeterminate hypodense partially calcified lesion at the liver dome.3. Portal hypertension with recanalized umbilical vein.4. Left femoral intramedullary chase with increasing lucency surrounding thedistal aspectof the screw which may indicate loosening.This final report was electronically signed by Dr Makayla MD 11/28/20175:29 PMDictated By: Adithya CHAPMAN: 11/28/2017 17 :36URINALYSIS WITH [id number] 16:11:00 Test Item Value Reference Range Comments Color (test code=UCOLR) YELLOW Clarity (test code=UCLAR) SL CLOUDY Glucose (test code=UGLUC) NEGATIVE NEGATIVE Bilirubin (test code=UBILI) SMALL NEGATIVE Ketones (test code=UKET) NEGATIVE NEGATIVE Specific [place] (test code=USPGR) 1.015 1.005-1.030 Blood (test code=UBLD) TRACE-LYSED NEGATIVE PH (test code=UPH) 6.0 4.5-8.0 Protein (test code=UPROT) NEGATIVE NEGATIVE Urobilinogen (test code=U UROB) 4.0 >0.2 Nitrite (test code=UNITR) NEGATIVE NEGATIVE Leukocyte Esterase (test MODERATE NEGATIVE code=ULEUK) WBC (test code=WBCUR) TNTC 0-5 RBC (test code=RBCUR) 0-3 0-5 Epithial Cells (test code=U EPI) 10-20 0-10 Mucous (test code=UMUC) Trace None Seen Bacteria (test code=UBACT) 4+ None Seen,Trace Crystals Urine (test code=URCRYS) Trace Amorphous Sediment None Seen [id number] 16:04:00 Test Item Value Reference Range Comments Glucose (test code=GLU) 118 mg/dl 75-110 BUN (test code=BUN) 27.0 mg/dl 6.0-17.0 Creatinine (test 1.1 mg/dl 0.4-1.2 code=CREA) Sodium (test code=NA) 135 mmol/l 137-145 Potassium (test code=K) 2.7 mmol/l 3.5-5.0 Chloride (test code=CL) 80 mmol/l 98-107 CO2 (test code=CO2) 39 mmol/l 22-30 Calcium (test code=CALC) 8.9 mg/dl 8.4-10.2 T Protein (test code=TP) 8.5 gm/dl 5.1-8.7 Albumin (test code=ALB) 4.2 gm/dl 3.5-4.6 A/G Ratio (test 1.0 % 1.1-2.2 code=AGRAT) AST (SGOT) (test 83 U/L 11-36 code=AST) ALT (SGPT) (test 21 U/L 11-40 code=ALT) Alkaline Phos (test 146 U/L 47-114 code=ALKP) Total Bilirubin (test 2.0 mg/dl 0.2-1.2 code=TBIL) Globulin (test 4.3 gm/dl 2.3-3.5 code=GLOBU) Calcium, Corrected (test 8.7 mg/dl 8.4-10.2 Various formulas exist for code=CALCCORR) corrected serum calcium results, each yielding different values. This corrected result was based on the formula: Corrected Calcium=SerumCalcium + [0.8 * ( 4 - SerumAlbumin)] EGFR if >60 (test code=EGFRAA) mL/min/1.73m\\S\\2 EGFR if Non- 52 Estimated Glomerular [place] (test mL/min/1.73m\\S\\2 Filtration Rate (eGFR) code=EGFRNA) Reference Intervals Decision Points for 18 years and older and average body mass: >=60 Does not exclude kidney disease. 30 - 59 Suggests moderate chronic kidney disease and indicates the need for further investigation including assessment of proteinuria and cardiovascular factors. < 30 Usually indicates a need for referral for assessment and management of chronic kidney failure. Critical values were called to Loly/ER by [id number] on 11/28/2017 16:04 PM. Results were not read back.AMYLASE, [id number] 16:04:00 Test Item Value Reference Range Comments Amylase (test code=AMYL) 68 U/L 12-103 LIPASE, [id number] 16:04:00 Test Item Value Reference Range Comments Lipase (test code=LIPA) 155 U/L 8-223 CBC WITH AUTO [id number] 15:46:00 Test Item Value Reference Range Comments WBC (test code=WBC) 9.11 10\\S\\3/ul 4.80-10.80 RBC (test code=RBC) 5.82 10\\S\\6/ul 4.20-5.40 Hemoglobin (test code=HGB) 15.2 gm/dl 12.0-14.0 Hematocrit (test code=HCT) 46.8 % 37.0-47.0 MCV (test code=MCV) 80.4 fL 81.0-99.0 MCH (test code=MCH) 26.1 pg 27.0-31.0 MCHC (test code=MCHC) 32.5 gm/dl 33.0-37.0 RDW (test code=RDWVC) 15.5 % 11.5-14.5 Platelet (test code=PLT) 233 10\\S\\3/ul 130-400 MPV (test code=MPV) 11.4 fL 7.4-10.4 "NOT MEASURED" RESULTS ARE DISPLAYED WHEN THE INSTRUMENT HAS A SUPPRESSED OR UNREPORTABLE RESULT. THIS WILL MOST OFTEN HAPPEN WITH THE MPV WHEN THERE IS AN ABNORMAL PLATELET DISTRIBUTION DUE TO A CRITICAL LOW VALUE OR PLATELET CLUMPING. THE RDW MAY BE SUPPRESSED IF THERE ARE MULTIPLE PEAKS PRESENT ON THE RBC HISTOGRAM. IN THIS CASE, A MANUAL REVIEW OF THE SLIDE WILL BE PERFORMED, AND RBC MORPHOLOGY WILL BE NOTED ON THE REPORT. NE% (test code=NE) 75.6 % 42.0-75.0 LY% (test code=LY) 14.5 % 13.0-42.0 MO% (test code=MO) 8.6 % 4.0-14.0 EO% (test code=EO) 0.4 % 1.0-3.0 BA% (test code=BA) 0.7 % 1.0-3.0 IG% (test code=IG%) 0.2 % 0.0-0.4 [id number] 08:10:00 Test Item Value Reference Range Comments CPK (test code=CPK) 23 U/L 30-135 [id number] 08:10:00 Test Item Value Reference Range Comments CKMB (test code=CKMB) <0.22 ng/ml 0.00-2.36 TROPONIN-I [id number] 08:10:00 Test Item Value Reference Range Comments Troponin-I (test <0.012 ng/ml 0.000-0.034 The 99th Percentile URL is 0.034 code=TROP) ng/mL. The Joint Society of Cardiology/[place] [employer] (ESC/ACC) and the National Academy of Clinical Biochemistry Standards of Laboratory Practices (NACB) recommends that the diagnosis of AMI includes the presence of clinical history suggestive of Acute Coronary Syndrome (ACS) and a maximum concentration of cardiac troponin exceeding the 99th percentile of a normal reference population [upper reference limit (URL)] on at least one occasion during the first 24 hours after the clinical event. [id number] 07:52:00 Test Item Value Reference Range Comments CPK (test code=CPK) 24 U/L 30-135 [id number] 07:40:00 Test Item Value Reference Range Comments Glucose (test code=GLU) 146 mg/dl 75-110 BUN (test code=BUN) 11.0 mg/dl 6.0-17.0 Creatinine (test 0.7 mg/dl 0.4-1.2 code=CREA) Sodium (test code=NA) 142 mmol/l 137-145 Potassium (test code=K) 3.1 mmol/l 3.5-5.0 Chloride (test code=CL) 99 mmol/l 98-107 CO2 (test code=CO2) 28 mmol/l 22-30 Calcium (test code=CALC) 9.3 mg/dl 8.4-10.2 T Protein (test code=TP) 7.0 gm/dl 5.1-8.7 Albumin (test code=ALB) 3.5 gm/dl 3.5-4.6 A/G Ratio (test 1.0 % 1.1-2.2 code=AGRAT) AST (SGOT) (test 57 U/L 11-36 code=AST) ALT (SGPT) (test 24 U/L 11-40 code=ALT) Alkaline Phos (test 173 U/L 47-114 code=ALKP) Total Bilirubin (test 0.6 mg/dl 0.2-1.2 code=TBIL) Globulin (test 3.5 gm/dl 2.3-3.5 code=GLOBU) Anion Gap (test 15 code=GAP) Calcium, Corrected (test 9.7 mg/dl 8.4-10.2 Various formulas exist for code=CALCCORR) corrected serum calcium results, each yielding different values. This corrected result was based on the formula: Corrected Calcium=SerumCalcium + [0.8 * ( 4 - SerumAlbumin)] EGFR if >60 (test code=EGFRAA) mL/min/1.73m\\S\\2 EGFR if Non- >60 Estimated Glomerular [place] (test mL/min/1.73m\\S\\2 Filtration Rate (eGFR) code=EGFRNA) Reference Intervals Decision Points for 18 years and older and average body mass: >=60 Does not exclude kidney disease. 30 - 59 Suggests moderate chronic kidney disease and indicates the need for further investigation including assessment of proteinuria and cardiovascular factors. < 30 Usually indicates a need for referral for assessment and management of chronic kidney failure. XR CHEST AP/PA 1 [id number] 05:15:58EXAMINATION: XR CHEST AP/PA 1 VIEWINDICATION: shortness of breathCOMPARISON: CT of the chest on December 07, 2016FINDINGS: AP viewTUBES and LINES: None.LUNGS: Lungs are well inflated. Stable right middle lung scarring. There isno evidence of pneumonia or pulmonary edema.PLEURA: No pleural effusion or pneumothorax.HEART AND MEDIASTINUM: The cardiomediastinal silhouette is unremarkable.BONES AND SOFT TISSUES: No acute osseous lesion. Right humeral/glenohumeralprostheses. Soft tissues are unremarkable.UPPER ABDOMEN: No free air under the diaphragm.IMPRESSION:No acute thoracic abnormality.This final report was electronically signed by Dr Ramon Jade MD11/13/2017 5:09 AMDictated By: Zuri GIVENS: 11/13/2017 05:15TROPONIN-I [id number] 04:17 :00 Test Item Value Reference Range Comments Troponin-I (test <0.012 ng/ml 0.000-0.034 The 99th Percentile URL is 0.034 code=TROP) ng/mL. The Joint Society of Cardiology/[place] [employer] (ESC/ACC) and the National Academy of Clinical Biochemistry Standards of Laboratory Practices (NACB) recommends that the diagnosis of AMI includes the presence of clinical history suggestive of Acute Coronary Syndrome (ACS) and a maximum concentration of cardiac troponin exceeding the 99th percentile of a normal reference population [upper reference limit (URL)] on at least one occasion during the first 24 hours after the clinical event. [id number] 04:16:00 Test Item Value Reference Range Comments CKMB (test code=CKMB) <0.22 ng/ml 0.00-2.36 PRO-BNP(B-Type Natriuretic Peptide)2017-11-13 04:12:00 Test Item Value Reference Range Comments Pro-BNP(B-Peptide) (test code=PROBNP) 71 pg/ml 0-125 CBC WITH AUTO [id number] 03:47:00 Test Item Value Reference Range Comments WBC (test code=WBC) 8.92 10\\S\\3/ul 4.80-10.80 RBC (test code=RBC) 5.01 10\\S\\6/ul 4.20-5.40 Hemoglobin (test code=HGB) 12.9 gm/dl 12.0-14.0 Hematocrit (test code=HCT) 41.6 % 37.0-47.0 MCV (test code=MCV) 83.0 fL 81.0-99.0 MCH (test code=MCH) 25.7 pg 27.0-31.0 MCHC (test code=MCHC) 31.0 gm/dl 33.0-37.0 RDW (test code=RDWVC) 15.6 % 11.5-14.5 Platelet (test code=PLT) 143 10\\S\\3/ul 130-400 MPV (test code=MPV) 11.9 fL 7.4-10.4 NE% (test code=NE) 68.9 % 42.0-75.0 LY% (test code=LY) 21.1 % 13.0-42.0 MO% (test code=MO) 7.5 % 4.0-14.0 EO% (test code=EO) 1.7 % 1.0-3.0 BA% (test code=BA) 0.6 % 1.0-3.0 IG% (test code=IG%) 0.2 % 0.0-0.4 CULTURE, [id number] 10:01:00Specimen: Urine SpecimensCollected: 12/20/2016 16:19 Status: Final Last Updated: 12/23/2016 10:01 Culture Result (Final) (Final) >100,000 cc/mL Streptococcus species Isolate (Final) ( Final) Streptococcus agalactiae Ampicillin <=0.25 S Penicillin 0.12 S Cefotaxime <=0.12 S Ceftriaxone & lt;=0.12 S Clindamycin <=0.25 S Erythromycin 2 R ICR Negative - Levofloxacin 1 S Linezolid & lt;=2 S Moxifloxacin 0.25 S Tetracycline 2 S Tigecycline <=0.06 S Trimeth/Sulfa <=10 S Vancomycin 0.5SURINALYSIS WITH [id number] 17:55:00 Test Item Value Reference Range Comments Color (test code=UCOLR) Lt. Yellow Clarity (test code=UCLAR) Clear Glucose (test code=UGLUC) NEGATIVE NEGATIVE Bilirubin (test code=UBILI) NEGATIVE NEGATIVE Ketones (test code=UKET) NEGATIVE NEGATIVE Specific [place] (test code=USPGR) 1.010 1.005-1.030 Blood (test code=UBLD) NEGATIVE NEGATIVE PH (test code=UPH) 7.0 4.5-8.0 Protein (test code=UPROT) NEGATIVE NEGATIVE Urobilinogen (test code=U UROB) 0.2 >0.2 Nitrite (test code=UNITR) NEGATIVE NEGATIVE Leukocyte Esterase (test code=ULEUK) NEGATIVE NEGATIVE WBC (test code=WBCUR) None Seen 0-5 RBC (test code=RBCUR) 0-1 0-5 Epithial Cells (test code=U EPI) 0-3 0-10 Mucous (test code=UMUC) None Seen None Seen Bacteria (test code=UBACT) 2+ None Seen,Trace [id number] 15:30:00 Test Item Value Reference Range Comments Potassium (test code=K) 5.0 mmol/l 3.5-5.0 BLOOD UREA NTIROGEN (BUN)2016-12-07 08:29:00 Test Item Value Reference Range Comments BUN (test code=BUN) 22.0 mg/dl 6.0-17.0 CREATININE, [id number] 08:29:00 Test Item Value Reference Range Comments Creatinine (test 1.2 mg/dl 0.4-1.2 code=CREA) EGFR if 57 (test code=EGFRAA) mL/min/1.73m\\S\\2 EGFR if Non- 47 Estimated Glomerular [place] (test mL/min/1.73m\\S\\2 Filtration Rate (eGFR) code=EGFRNA) Reference Intervals Decision Points for 18 years and older and average body mass: >=60 Does not exclude kidney disease. 30 - 59 Suggests moderate chronic kidney disease and indicates the need for further investigation including assessment of proteinuria and cardiovascular factors. < 30 Usually indicates a need for referral for assessment and management of chronic kidney failure. [id number] 06:09:00 Test Item Value Reference Range Comments Potassium (test code=K) 3.3 mmol/l 3.5-5.0 [id number] 14:14:00 Test Item Value Reference Range Comments Magnesium (test code=MG) 1.5 mg/dl 1.6-2.3 [id number] 11:48:00 Test Item Value Reference Range Comments Potassium (test code=K) 2.8 mmol/l 3.5-5.0 Critical values were called to Karina Norton RN 12/06/16@1148 by [id number] on 12/06 11:48 AM. Results were read back by Karina Norton RN 12/06/16@1148.[id number] 06:11:00 Test Item Value Reference Range Comments CKMB (test code=CKMB) <0.22 ng/ml 0.00-2.36 TROPONIN-I [id number] 06:11:00 Test Item Value Reference Range Comments Troponin-I (test <0.012 ng/ml 0.000-0.034 The 99th Percentile URL is 0.034 code=TROP) ng/mL. The Joint Society of Cardiology/[place] [employer] (ESC/ACC) and the National Academy of Clinical Biochemistry Standards of Laboratory Practices (NACB) recommends that the diagnosis of AMI includes the presence of clinical history suggestive of Acute Coronary Syndrome (ACS) and a maximum concentration of cardiac troponin exceeding the 99th percentile of a normal reference population [upper reference limit (URL)] on at least one occasion during the first 24 hours after the clinical event. [id number] 06:07:00 Test Item Value Reference Range Comments Glucose (test code=GLU) 117 mg/dl 75-110 BUN (test code=BUN) 15.0 mg/dl 6.0-17.0 Creatinine (test 0.9 mg/dl 0.4-1.2 code=CREA) Sodium (test code=NA) 139 mmol/l 137-145 Potassium (test code=K) 2.9 mmol/l 3.5-5.0 RESULT CALLED TO BIANCA PAZ RN (CCU) AT 605 THEN READBACK // HH/ Chloride (test code=CL) 87 mmol/l 98-107 CO2 (test code=CO2) 38 mmol/l 22-30 Calcium (test code=CALC) 9.0 mg/dl 8.4-10.2 T Protein (test code=TP) 7.3 gm/dl 5.1-8.7 Albumin (test code=ALB) 3.9 gm/dl 3.5-4.6 A/G Ratio (test 1.1 % 1.1-2.2 code=AGRAT) AST (SGOT) (test 39 U/L 11-36 code=AST) ALT (SGPT) (test 25 U/L 11-40 code=ALT) Alkaline Phos (test 87 U/L 47-114 code=ALKP) Total Bilirubin (test 0.5 mg/dl 0.2-1.2 code=TBIL) Globulin (test 3.4 gm/dl 2.3-3.5 code=GLOBU) Anion Gap (test 15 code=GAP) Calcium, Corrected (test 9.1 mg/dl 8.4-10.2 Various formulas exist for code=CALCCORR) corrected serum calcium results, each yielding different values. This corrected result was based on the formula: Corrected Calcium=SerumCalcium + [0.8 * ( 4 - SerumAlbumin)] EGFR if >60 (test code=EGFRAA) mL/min/1.73m\\S\\2 EGFR if Non- >60 Estimated Glomerular [place] (test mL/min/1.73m\\S\\2 Filtration Rate (eGFR) code=EGFRNA) Reference Intervals Decision Points for 18 years and older and average body mass: >=60 Does not exclude kidney disease. 30 - 59 Suggests moderate chronic kidney disease and indicates the need for further investigation including assessment of proteinuria and cardiovascular factors. < 30 Usually indicates a need for referral for assessment and management of chronic kidney failure. Critical values were called to BIANCA PAZ RN by [id number] on 12/06/2016 06:07 AM. Results were read back by BIANCA PAZ RN.CBC WITH AUTO [id number] 05:26 :00 Test Item Value Reference Range Comments WBC (test code=WBC) 9.1 k/ul 4.8-10.8 RBC (test code=RBC) 5.75 Millions/ul 4.20-5.40 Hemoglobin (test code=HGB) 14.6 gm/dl 12.0-14.0 Hematocrit (test code=HCT) 45.6 % 37.0-47.0 MCV (test code=MCV) 79.3 fL 81.0-99.0 MCH (test code=MCH) 25.4 pg 27.0-31.0 MCHC (test code=MCHC) 32.0 gm/dl 33.0-37.0 RDW (test code=RDWVC) 15.5 % 11.5-14.5 Platelet (test code=PLT) 152 k/ul 130-400 MPV (test code=MPV) 11.0 fL 7.4-10.4 NE% (test code=NE) 62.8 % 42.0-75.0 LY% (test code=LY) 27.0 % 13.0-42.0 MO% (test code=MO) 7.4 % 4.0-14.0 EO% (test code=EO) 2.4 % 1.0-3.0 BA% (test code=BA) 0.4 % 1.0-3.0 NRBC, Auto (test code=NRBC_AUTO) 0 /100WBC 0-0 D-DIMER [id number] 22:33:00 Test Item Value Reference Range Comments D DIMER (test code=D 0.89 mg/L FEU 0.19-0.50 METHOD CHANGE: 07/15/2012 Due to DIM) the discontinued mehodology currently in use, a change in the testing method is necessary. The Reference Ranges will change dramatically, and results are obtained by the observance of clotting activation mesured on the [employer] instruments. This same methodology is currently in use for PT/INR , PTT, AND HEPARIN testing in our Labs. The D-Dimer assay is an aid in the evaluation of thromboembolic events, as in DIC, DVT, Pulmonary Embolism, and other thromboembolic diseases, and should not be used without other diagnostic measures, to properly diagnose and treat thromboembolic disease. REFERENCE RANGE: 0.19 - 0.50 mg/L FEU (Fibrinogen Equivalent Units) Cut-Off Value is: > .50 mg/L FEU Note: Results greater than (>) the Cut-Off are to be considered POSITIVE, and significant in the evaluation of thromboembolic diseases. Results less than (<) the Cut-Off are to be considered NEGATIVE, and a low probability of thromboembolic disease. [id number] 22:18:00 Test Item Value Reference Range Comments CKMB (test code=CKMB) <0.22 ng/ml 0.00-2.37 TROPONIN-I [id number] 22:18:00 Test Item Value Reference Range Comments Troponin-I (test <0.012 ng/ml 0.000-0.034 The 99th Percentile URL is 0.034 code=TROP) ng/mL. The Joint Society of Cardiology/[place] [employer] (ESC/ACC) and the National Academy of Clinical Biochemistry Standards of Laboratory Practices (NACB) recommends that the diagnosis of AMI includes the presence of clinical history suggestive of Acute Coronary Syndrome (ACS) and a maximum concentration of cardiac troponin exceeding the 99th percentile of a normal reference population [upper reference limit (URL)] on at least one occasion during the first 24 hours after the clinical event. [id number] 14:13:00 Test Item Value Reference Range Comments CKMB (test code=CKMB) 0.22 ng/ml 0.00-2.37 PRO-BNP(B-Type Natriuretic Peptide)2016-12-05 14:13:00 Test Item Value Reference Range Comments Pro-BNP(B-Peptide) (test code=PROBNP) 71 pg/ml 0-125 TROPONIN-I [id number] 14:13:00 Test Item Value Reference Range Comments Troponin-I (test 0.012 ng/ml 0.000-0.034 The 99th Percentile URL is 0.034 code=TROP) ng/mL. The Joint Society of Cardiology/[place] [employer] (ESC/ACC) and the National Academy of Clinical Biochemistry Standards of Laboratory Practices (NACB) recommends that the diagnosis of AMI includes the presence of clinical history suggestive of Acute Coronary Syndrome (ACS) and a maximum concentration of cardiac troponin exceeding the 99th percentile of a normal reference population [upper reference limit (URL)] on at least one occasion during the first 24 hours after the clinical event. AMYLASE, [id number] 14:00:00 Test Item Value Reference Range Comments Amylase (test code=AMYL) 68 U/L 12-103 LIPASE, [id number] 14:00:00 Test Item Value Reference Range Comments Lipase (test code=LIPA) 121 U/L 8-223 [id number] 14:00:00 Test Item Value Reference Range Comments Glucose (test code=GLU) 109 mg/dl 75-110 BUN (test code=BUN) 14.0 mg/dl 6.0-17.0 Creatinine (test 0.9 mg/dl 0.4-1.2 code=CREA) Sodium (test code=NA) 142 mmol/l 137-145 Potassium (test code=K) 3.9 mmol/l 3.5-5.0 Chloride (test code=CL) 87 mmol/l 98-107 CO2 (test code=CO2) 40 mmol/l 22-30 Calcium (test code=CALC) 9.8 mg/dl 8.4-10.2 T Protein (test code=TP) 7.5 gm/dl 5.1-8.7 Albumin (test code=ALB) 4.1 gm/dl 3.5-4.6 A/G Ratio (test 1.2 % 1.1-2.2 code=AGRAT) AST (SGOT) (test 38 U/L 11-36 code=AST) ALT (SGPT) (test 30 U/L 11-40 code=ALT) Alkaline Phos (test 88 U/L 47-114 code=ALKP) Total Bilirubin (test 0.9 mg/dl 0.2-1.2 code=TBIL) Globulin (test 3.4 gm/dl 2.3-3.5 code=GLOBU) Calcium, Corrected (test 9.7 mg/dl 8.4-10.2 Various formulas exist for code=CALCCORR) corrected serum calcium results, each yielding different values. This corrected result was based on the formula: Corrected Calcium=SerumCalcium + [0.8 * ( 4 - SerumAlbumin)] EGFR if >60 (test code=EGFRAA) mL/min/1.73m\\S\\2 EGFR if Non- >60 Estimated Glomerular [place] (test mL/min/1.73m\\S\\2 Filtration Rate (eGFR) code=EGFRNA) Reference Intervals Decision Points for 18 years and older and average body mass: >=60 Does not exclude kidney disease. 30 - 59 Suggests moderate chronic kidney disease and indicates the need for further investigation including assessment of proteinuria and cardiovascular factors. < 30 Usually indicates a need for referral for assessment and management of chronic kidney failure. URINALYSIS WITH [id number] 13:49:00 Test Item Value Reference Range Comments Color (test code=UCOLR) Lt. Yellow Clarity (test code=UCLAR) CLEAR Glucose (test code=UGLUC) NEGATIVE NEGATIVE Bilirubin (test code=UBILI) NEGATIVE NEGATIVE Ketones (test code=UKET) NEGATIVE NEGATIVE Specific [place] (test code=USPGR) <=1.005 1.005-1.030 Blood (test code=UBLD) NEGATIVE NEGATIVE PH (test code=UPH) 6.0 4.5-8.0 Protein (test code=UPROT) NEGATIVE NEGATIVE Urobilinogen (test code=U UROB) 0.2 >0.2 Nitrite (test code=UNITR) NEGATIVE NEGATIVE Leukocyte Esterase (test NEGATIVE NEGATIVE code=ULEUK) WBC (test code=WBCUR) 0-2 0-5 RBC (test code=RBCUR) 0-1 0-5 Epithial Cells (test code=U EPI) 5-10 0-10 Mucous (test code=UMUC) Trace None Seen Bacteria (test code=UBACT) Trace None Seen,Trace Crystals Urine (test code=URCRYS) Trace Amorphous Sediment None Seen CBC (HEMOGRAM ONLY)2016-12-05 13:35:00 Test Item Value Reference Range Comments WBC (test code=WBC) 7.4 k/ul 4.8-10.8 RBC (test code=RBC) 5.61 Millions/ul 4.20-5.40 Hemoglobin (test code=HGB) 14.3 gm/dl 12.0-14.0 Hematocrit (test code=HCT) 44.3 % 37.0-47.0 MCV (test code=MCV) 79.1 fL 81.0-99.0 MCH (test code=MCH) 25.5 pg 27.0-31.0 MCHC (test code=MCHC) 32.2 gm/dl 33.0-37.0 RDW (test code=RDWVC) 15.3 % 11.5-14.5 Platelet (test code=PLT) 151 k/ul 130-400 MPV (test code=MPV) 10.6 fL 7.4-10.4
--- OUTSIDE RECORDS SUMMARY | 2018-02-02 16:12 | XMS REPORT | Continuity of Care Document ---
:1945 Author Organization [facility] Care Team Providers Name Role Phone MARIA TERESA MACIAS Admitting Physician MARIA TERESA MACIAS Attending Physician Hospital Admission Diagnosis Code Admission Diagnosis Date [id number] Dyspnea Social History Element Code Description Smoking Start Date End Date Description Status Code System Smoking Status [id number] Never smoker SNOMED-CT Problems Code Code System Problem Name Start Date End Date Status 726688766 SNOMED-CT Gastroesophageal 11/13/2017 Active reflux disease 08544646 SNOMED-CT Congestive heart 11/13/2017 Active failure (disorder) 672714042 SNOMED-CT Diverticulosis NOS 08/2012 Active 083464311 SNOMED-CT Liver mass 2011 Active 66219380 SNOMED-CT Primary fibromyalgia 2009 Active syndrome 7223266 SNOMED-CT Psoriasis 2000 Active 71200345 SNOMED-CT Hypothyroidism 1985 Active 45428975 SNOMED-CT Hypertensive disorder 1983 Active 639716559 SNOMED-CT Osteoarthritis 1980 Active 382208255 SNOMED-CT Gastroesophageal u Active reflux disease 8589351 SNOMED-CT Diastolic dysfunction u Active 173948726 SNOMED-CT Dyslipidemia u Active 45654236 SNOMED-CT Hypertensive disorder u Active 718644449 SNOMED-CT Osteoarthritis u Active 12317562 SNOMED-CT Hypothyroidism u Active 7440817 SNOMED-CT Psoriasis u Active 44884418 SNOMED-CT Kidney stone u Active 126789587 SNOMED-CT Basal cell carcinoma Unknown Active of forehead 153211017 SNOMED-CT Acute duodenal ulcer LONG AGO Active Medications RxNorm Medication Dose Route Instructions Indications Start End Status Date Date Acetaminophen 1 tablet Oral orally every 8 pain Active 300 MG / hours as Codeine needed. Phosphate 60 MG Oral Tablet 575826 Amoxicillin 1 tablet Oral orally every Active 875 MG / 12 hours Clavulanate 125 MG Oral Tablet 1191 Aspirin 81 Oral orally every Active milligram day 1202 Atenolol 50 Oral orally every HTN Active milligram morning 486575 Furosemide 20 20 Oral orally every Active MG Oral Tablet milligram afternoon 242598 Furosemide 40 40 Oral orally every Active MG Oral Tablet milligram morning 259503 gabapentin 300 300 MG ORAL ORAL 2 TIMES A 12/05/ Active MG Oral DAY 2017 Capsule levothyroxine 137 Oral orally every Active microgram day s 6916 Metolazone 2.5 Oral orally every Active milligram day 20020718 Omeprazole 40 40 Oral orally every Active MG Delayed milligram day (swallow Release Oral whole (do not Capsule chew/crush/cut )) 654712 pantoprazole 40 MG ORAL ORAL ONCE A 12/05/ Active 40 MG Delayed DAY 2016 Release Oral Tablet 8591 Potassium 20 Oral orally every Active Chloride milliequi day valent 098755 Pravastatin 40 Oral orally every cholesterol Active Sodium 40 MG milligram day at bedtime Oral Tablet 721533 Sucralfate 1 gram Oral orally 4 times Active 1000 MG Oral per day as Tablet needed. (administer 1 hour before meals and at bedtime) 781885 Acetaminophen 1 tablet Oral orally every 4 pain No 300 MG / to 6 hours as Longer Hydrocodone needed. Active Bitartrate 7.5 MG Oral Tablet 704 Amitriptyline 50 Oral orally No milligram everyday at Longer s bedtime Active 032691 Diclofenac 75 Oral orally three pain No Sodium 75 MG milligram times a day as Longer Delayed needed. Active Release Oral (administer Tablet with food or milk) 544736 duloxetine 60 60 Oral orally twice a fibromyalgia No MG Delayed milligram day Longer Release Oral Active Capsule 635382 Eflornithine 1 Topical topically 2 No 139 MG/ML applicati times per day Longer Topical Cream on (apply thin Active layer on face/chin at least 5 minutes after hair removal and at least 8 hours apart; do not wash for at least 4 hours) LEVOTHYROXIN 200 mcg Oral orally every Hypothyroidism No other day Longer Active levothyroxine 150 Oral orally every No microgram day Longer Active 502350 Meclizine 25 Oral orally 4 times Dizziness No Hydrochloride milligram per day as Longer 25 MG Oral needed. Active Tablet 440689 meloxicam 15 15 Oral orally every No MG Oral Tablet milligram day Longer Active 7646 Omeprazole 20 Oral orally every No milligram day (swallow Longer whole (do not Active chew/crush/cut ) OR open capsule, sprinkle contents over tablespoonful applesauce; swallow all immediately/do not chew pellets;) 624394 tramadol 50 Oral orally twice a pain No hydrochloride milligram day as needed. Longer 50 MG Oral Active Tablet Allergies Code Code Allergy Type Reaction Severity Start End Status System Substance Date Date 20341109 RXNorm Cipro Drug Rash Unknown Active allergy (Severe Allergic Rxn) 323822 RXNorm Lipitor Drug Redness Unknown Active allergy (Severe) RXNorm soy Food Throat Unknown Active allergy Swelling (Severe Allergic Rxn) Results Laboratory Results Order: CKMB LOINC Test Result Flag Range Unit Date <0.22 0.00-2.36 ng/ml 11/13/2017 1CB 06:52 Performing Lab Footnotes:[address] [place], [place] [id number] [place] [address] POOJA KEENAN: DIRECTOR SADIA NICOLE _ Order: CPK LOINC Test Result Flag Range Unit Date 23 L 30-135 U/L 11/13/2017 1C 06:52 Performing Lab Footnotes:[address] [place], [place] [id number] [place] [address] POOJA KEENAN: DIRECTOR SADIA NICOLE _ Order: TROPONIN I QUANTITATIVE LOINC Test Result Flag Range Unit Date <0.012 0.000-0.034 ng/ml 11/13/2017 1Troponin-I 06:52 Note: The 99th Percentile URL is 0.034 ng/mL. The [employer] Society of Cardiology/[place] [employer] (ESC/ACC) and the National [...] first 24 hours after the clinical event. Performing Lab Footnotes:[address] [place] [address] - [id number] - [address] [address] POOJA -MD: DIRECTOR SADIA NICOLE _ Order: CBC PLATELET AUTO DIFF LOINC Test Result Flag Range Unit Date 00870-3 8.92 4.80-10.80 10^3/ul 11/13/2017 1Leukocytes^^correc 03:39 shalini for nucleated erythrocytes:NCnc:P t:Bld:Qn:Automated count 789-8 5.01 4.20-5.40 10^6/ul 11/13/2017 1Erythrocytes:NCnc: 03:39 Pt:Bld:Qn:Automated count 718-7 12.9 12.0-14.0 gm/dl 11/13/2017 1Hemoglobin:MCnc:Pt 03:39 :Bld:Qn 4544-3 41.6 37.0-47.0 % 11/13/2017 1Hematocrit:VFr:Pt: 03:39 Bld:Qn:Automated count 787-2 83 81.0-99.0 fL 11/13/2017 1Erythrocyte mean 03:39 corpuscular volume:EntVol:Pt:RB C:Qn:Automated count 785-6 25.7 L 27.0-31.0 pg 11/13/2017 1Erythrocyte mean 03:39 corpuscular hemoglobin:EntMass: Pt:RBC:Qn:Automated count 786-4 31 L 33.0-37.0 gm/dl 11/13/2017 1Erythrocyte mean 03:39 corpuscular hemoglobin concentration:MCnc: Pt:RBC:Qn:Automated count 788-0 15.6 H 11.5-14.5 % 11/13/2017 1Erythrocyte 03:39 distribution width:Ratio:Pt:RBC: Qn:Automated count 777-3 143 130-400 10^3/ul 11/13/2017 1Platelets:NCnc:Pt: 03:39 Bld:Qn:Automated count 18729-0 1Platelet 11.9 A 7.4-10.4 fL 11/13/2017 mean 03:39 volume:EntVol:Pt:Bl d:Qn:Automated count 770-8 68.9 42.0-75.0 % 11/13/2017 1Neutrophils/100 03:39 leukocytes:NFr:Pt:B ld:Qn:Automated count 736-9 21.1 13.0-42.0 % 11/13/2017 1Lymphocytes/100 03:39 leukocytes:NFr:Pt:B ld:Qn:Automated count 5905-5 7.5 4.0-14.0 % 11/13/2017 1Monocytes/100 03:39 leukocytes:NFr:Pt:B ld:Qn:Automated count 713-8 1.7 1.0-3.0 % 11/13/2017 1Eosinophils/100 03:39 leukocytes:NFr:Pt:B ld:Qn:Automated count 706-2 0.6 L 1.0-3.0 % 11/13/2017 1Basophils/100 03:39 leukocytes:NFr:Pt:B ld:Qn:Automated count 1IG% 0.2 0.0-0.4 % 11/13/2017 03:39 Performing Lab Footnotes:[address] [place] [address] [id number] - [facility] [place] [address] POOJA KEENAN: DIRECTOR SADIA NICOLE _ Order: CMP COMPREHENSIVE METABOLIC PANEL LOINC Test Result Flag Range Unit Date 146 H 75-110 mg/dl 11/13/2017 1Glucose 03:39 1BUN 11 6.0-17.0 mg/dl 11/13/2017 03:39 0.7 0.4-1.2 mg/dl 11/13/2017 1Creatinine 03:39 142 137-145 mmol/l 11/13/2017 1Sodium 03:39 3.1 L 3.5-5.0 mmol/l 11/13/2017 1Potassium 03:39 99 98-107 mmol/l 11/13/2017 1Chloride 03:39 1CO2 28 22-30 mmol/l 11/13/2017 03:39 9.3 8.4-10.2 mg/dl 11/13/2017 1Calcium 03:39 1T 7 5.1-8.7 gm/dl 11/13/2017 Protein 03:39 3.5 3.5-4.6 gm/dl 11/13/2017 1Albumin 03:39 1A/G 1 L 1.1-2.2 % 11/13/2017 Ratio 03:39 1AST 57 H 11-36 U/L 11/13/2017 (SGOT) 03:39 1ALT 24 11-40 U/L 11/13/2017 (SGPT) 03:39 173 H 47-114 U/L 11/13/2017 1Alkaline Phos 03:39 1Total 0.6 0.2-1.2 mg/dl 11/13/2017 Bilirubin 03:39 3.5 2.3-3.5 gm/dl 11/13/2017 1Globulin 03:39 1Anion 15 11/13/2017 Gap 03:39 9.7 8.4-10.2 mg/dl 11/13/2017 1Calcium, 03:39 Corrected Note: Various formulas exist for corrected serum calcium results, each yielding different values. This corrected result was based on the formula: Corrected Calcium=SerumCalcium + [0.8 * ( 4 - SerumAlbumin)] 1EGFR >60 mL/min/1.73m^2 11/13/2017 03:39 if 1EGFR >60 mL/min/1.73m^2 11/13/2017 03:39 if Non- Note: Estimated Glomerular Filtration Rate (eGFR) Reference Intervals Decision Points for 18 years and older and average body mass: >=60 Does not exclude kidney disease. 30 - 59 Suggests moderate chronic kidney disease and indicates the need for further investigation including assessment of proteinuria and cardiovascular factors. < 30 Usually indicates a need for referral for assessment and management of chronic kidney failure. Performing Lab Footnotes:[id number] [place] [address] POOJA KEENAN: DIRECTOR SADIA NICOLE _ Order: PRO BNP B - NATRIURETIC PEPTIDE LOINC Test Result Flag Range Unit Date 71 0-125 pg/ml 11/13/2017 1Pro-BNP(B-P 03:39 eptide) Performing Lab Footnotes:[address] [place], [place] [id number] [place] [address] POOJA KEENAN: DIRECTOR SADIA NICOLE _ Radiology Results Order: [id number] XR CHEST AP/PA 1 VIEWExam Completion Date:11/13/2017 03:20EXAMINATION: XR CHEST AP/PA 1 VIEW INDICATION: shortness of breath COMPARISON: CT of the [place] December 07, 2016 FINDINGS: AP view TUBES and LINES: None.LUNGS: Lungs are well inflated. Stable right middle lung scarring. There isno evidence of pneumonia or pulmonary edema.PLEURA: No pleural effusion or pneumothorax.HEART AND MEDIASTINUM: The cardiomediastinal silhouette is unremarkable. BONES AND SOFT TISSUES: No acute osseous lesion. Right humeral/glenohumeralprostheses. Soft tissues are unremarkable.UPPER ABDOMEN: No free air under the diaphragm. IMPRESSION: No acute thoracic abnormality.This final report was electronically signed by Dr Ramon Jade MD11/13/2017 5:09 AMDictated By: Zuri ELLISON: 11/13/2017 05:15 Vital Signs Vitals Value Date Respiratory Rate 18 11/13/2017 O2% BldC Oximetry 96 11/13/2017 BP Systolic 96 mmHg 11/13/2017 BP Diastolic 65 mmHg 11/13/2017 Height 67 in 11/13/2017 Weight Measured 242.5 lbs 11/13/2017 BSA (Body Surface Area) 2.13354 11/13/2017 BMI (Body Mass Index) 38 11/13/2017 Body Temperature 98.1 F 11/13/2017 Plan of Care No data in the system Procedures Code Code System Procedure Name Target Site Date of Procedure XR CHEST 11/13/2017 05:16 AP/PA 1 VIEW Encounters Date Code Diagnosis Status (ICD10) - I110 HTN HEART DISEASE W/HEART FAIL Active Immunizations Vaccine Code Code System Vaccine Name Date Status 109 CVX 06/25/2009 Completed pneumococcal vaccine, NOS 88 CVX influenza 04/09/2013 Completed virus vaccine, NOS Functional Status No data in the system Hospital Discharge Instructions Discharge Instructions 2Discharge DiagnosisGERDImportant InformationConsult your physician or return to the Emergency Department immediately if worse, if not better as expected, or if any problems arise.Follow Up CareYesImportant InformationPlease understand that you have received care only on an emergency basis. If your condition does notimprove, you should call your personal physician for follow-up care. If you do not have a physician,you may call the referred physician listed.If you have questions about your care or these discharge instructions, you may call the Emergency Department. Please take your discharge paperwork with you to any follow-up appointments.Follow-Up With: Primary Care PhysicianActivity LevelAs tolerated, unrestrictedDietRegularPrescriptions Given Via:Printed and given to patient/ caregiver.Patient TeachingPatient education provided
--- OUTSIDE RECORDS SUMMARY | 2018-02-02 16:12 | XMS REPORT | Continuity of Care Document ---
:1945 Author Organization [facility] Care Team Providers Name Role Phone DONATO POSEY Admitting Physician DONATO POSEY Attending Physician Hospital Admission Diagnosis No data in the System SOCIAL HISTORY Smoking Status - No data in the system Problems Code Code System Problem Name Start Date End Date Status [id number] SNOMED-CT Gastroesophageal 11/13/2017 Active reflux disease 80541773 SNOMED-CT Congestive heart 11/13/2017 Active failure (disorder) 154494414 SNOMED-CT Diverticulosis NOS 08/2012 Active 961184114 SNOMED-CT Liver mass 2011 Active 39686027 SNOMED-CT Primary fibromyalgia 2009 Active syndrome 7420254 SNOMED-CT Psoriasis 2000 Active 40365940 SNOMED-CT Hypothyroidism 1985 Active 34849035 SNOMED-CT Hypertensive disorder 1983 Active 323637912 SNOMED-CT Osteoarthritis 1980 Active 967661944 SNOMED-CT Gastroesophageal u Active reflux disease 7558629 SNOMED-CT Diastolic dysfunction u Active 416110832 SNOMED-CT Dyslipidemia u Active 10724803 SNOMED-CT Hypertensive disorder u Active 937274455 SNOMED-CT Osteoarthritis u Active 17508185 SNOMED-CT Hypothyroidism u Active 2673972 SNOMED-CT Psoriasis u Active 62287222 SNOMED-CT Kidney stone u Active 307137889 SNOMED-CT Basal cell carcinoma Unknown Active of forehead 932501520 SNOMED-CT Acute duodenal ulcer LONG AGO Active Medications RxNorm Medication Dose Route Instructions Indications Start End Status Date Date Acetaminophen 1 tablet Oral orally every 8 pain Active 300 MG / hours as Codeine needed. Phosphate 60 MG Oral Tablet 1191 Aspirin 81 Oral orally every Active milligram day 1202 Atenolol 50 Oral orally every HTN Active milligram morning 206826 Furosemide 20 20 Oral orally every Active MG Oral Tablet milligram afternoon 437753 Furosemide 40 40 Oral orally every Active MG Oral Tablet milligram morning 787090 gabapentin 300 300 MG ORAL ORAL 2 TIMES A 12/05/ Active MG Oral DAY 2017 Capsule levothyroxine 137 Oral orally every Active microgram day s 6916 Metolazone 2.5 Oral orally every Active milligram day 20020718 Omeprazole 40 40 Oral orally every Active MG Delayed milligram day (swallow Release Oral whole (do not Capsule chew/crush/cut )) 785446 pantoprazole 40 MG ORAL ORAL ONCE A 12/05/ Active 40 MG Delayed DAY 2016 Release Oral Tablet 51520 Paroxetine 10 Oral orally every Active milligram day 8590 Potassium 20 Oral orally every Active Chloride milliequi day valent 913903 Pravastatin 40 Oral orally every cholesterol Active Sodium 40 MG milligram day at bedtime Oral Tablet 190230 Sucralfate 1 gram Oral orally before Active 1000 MG Oral meals and at Tablet bedtime as needed. (administer 1 hour before meals and at bedtime) 391164 Acetaminophen 1 tablet Oral orally every 4 pain No 300 MG / to 6 hours as Longer Hydrocodone needed. Active Bitartrate 7.5 MG Oral Tablet 704 Amitriptyline 50 Oral orally No milligram everyday at Longer s bedtime Active 898863 Amoxicillin 1 tablet Oral orally every No 875 MG / 12 hours Longer Clavulanate Active 125 MG Oral Tablet 146954 Diclofenac 75 Oral orally three pain No Sodium 75 MG milligram times a day as Longer Delayed needed. Active Release Oral (administer Tablet with food or milk) 661364 duloxetine 60 60 Oral orally twice a fibromyalgia No MG Delayed milligram day Longer Release Oral Active Capsule 334812 Eflornithine 1 Topical topically 2 No 139 [...] orally every No microgram day Longer Active 487246 Meclizine 25 Oral orally 4 times Dizziness No Hydrochloride milligram per day as Longer 25 MG Oral needed. Active Tablet 746491 meloxicam 15 15 Oral orally every No MG Oral Tablet milligram day Longer Active 7646 Omeprazole 20 Oral orally every No milligram day (swallow Longer whole (do not Active chew/crush/cut ) OR open capsule, sprinkle contents over tablespoonful applesauce; swallow all immediately/do not chew pellets;) 035502 tramadol 50 Oral orally twice a pain No hydrochloride milligram day as needed. Longer 50 MG Oral Active Tablet Allergies Code Code Allergy Type Reaction Severity Start End Status System Substance Date Date 20341109 RXNorm Cipro Drug Rash Unknown Active allergy (Severe Allergic Rxn) 717277 RXNorm Lipitor Drug Redness Unknown Active allergy (Severe) RXNorm soy Food Throat Unknown Active allergy Swelling (Severe Allergic Rxn) Results No data in the system Vital Signs No data in the system Plan of Care No data in the system Procedures No data in the system Encounters No data in the system Immunizations Vaccine Code Code System Vaccine Name Date Status 109 CVX 06/25/2009 Completed pneumococcal vaccine, NOS 88 CVX influenza 04/09/2013 Completed virus vaccine, NOS Functional Status No data in the system Hospital Discharge Instructions No data in the system
--- OUTSIDE RECORDS SUMMARY | 2018-02-02 16:12 | XMS REPORT | Continuity of Care Document ---
:1945 Author Organization [facility] Care Team Providers Name Role Phone DR CRISTOBAL MCCALLUM Admitting Physician DR CRISTOBAL MCCALLUM Attending Physician Hospital Admission Diagnosis Code Admission Diagnosis Date [id number] Hypokalemia Social History Element Code Description Smoking Start Date End Date Description Status Code System Smoking Status [id number] Never smoker SNOMED-CT Problems Code Code System Problem Name Start Date End Date Status 356503888 SNOMED-CT Gastroesophageal 11/13/2017 Active reflux disease 97953812 SNOMED-CT Congestive heart 11/13/2017 Active failure (disorder) 353895347 SNOMED-CT Diverticulosis NOS 08/2012 Active 191117421 SNOMED-CT Liver mass 2011 Active 17278518 SNOMED-CT Primary fibromyalgia 2009 Active syndrome 5702548 SNOMED-CT Psoriasis 2000 Active 29211472 SNOMED-CT Hypothyroidism 1985 Active 34819685 SNOMED-CT Hypertensive disorder 1983 Active 726964297 SNOMED-CT Osteoarthritis 1980 Active 422810854 SNOMED-CT Gastroesophageal u Active reflux disease 4475935 SNOMED-CT Diastolic dysfunction u Active 915565876 SNOMED-CT Dyslipidemia u Active 39260598 SNOMED-CT Hypertensive disorder u Active 790199072 SNOMED-CT Osteoarthritis u Active 20934445 SNOMED-CT Hypothyroidism u Active 0652859 SNOMED-CT Psoriasis u Active 32268306 SNOMED-CT Kidney stone u Active 146216496 SNOMED-CT Basal cell carcinoma Unknown Active of forehead 496978183 SNOMED-CT Acute duodenal ulcer LONG AGO Active Medications RxNorm Medication Dose Route Instructions Indications Start End Status Date Date Acetaminophen 1 tablet Oral orally every 8 pain Active 300 MG / hours as Codeine needed. Phosphate 60 MG Oral Tablet 1191 Aspirin 81 Oral orally every Active milligra day m 1202 Atenolol 50 Oral orally every HTN Active milligra morning m 001806 Furosemide 40 40 Oral orally every Active MG Oral Tablet milligra morning m 416481 gabapentin 300 300 MG ORAL ORAL 12/05/ Active MG Oral Capsule 2016 levothyroxine 137 Oral orally every Active microgra day ms 653491 Magnesium 30 ML ORAL ORAL EVERY 11/28/ Active Hydroxide 80 NIGHT AT 2018 MG/ML Oral BEDTIME Suspension NEEDED as needed. 20020718 Omeprazole 40 40 Oral orally every Active MG Delayed milligra day (swallow Release Oral m whole (do not Capsule chew/crush/cut )) 75319 Paroxetine 10 Oral orally every Active milligra day m 19800614 Potassium 20 MEQ ORAL ORAL TWICE A 12/02/ Active Chloride 20 MEQ DAY 2018 Extended Release Oral Tablet 597775 Pravastatin 40 Oral orally every cholesterol Active Sodium 40 MG milligra day at bedtime Oral Tablet m 622352 Sucralfate 1000 1 gram Oral orally before Active MG Oral Tablet meals and at bedtime as needed. (administer 1 hour before meals and at bedtime) 416874 Sulfamethoxazol 1 tablet Oral orally 2 times Active e 800 MG / per day (5 Trimethoprim day) 160 MG Oral Tablet 680670 Acetaminophen 1 tablet Oral orally every 4 pain No 300 MG / to 6 hours as Longer Hydrocodone needed. Active Bitartrate 7.5 MG Oral Tablet 704 Amitriptyline 50 Oral orally No milligra everyday at Longer ms bedtime Active 467533 Amoxicillin 875 1 tablet Oral orally every No MG / 12 hours Longer Clavulanate 125 Active MG Oral Tablet 435299 Diclofenac 75 Oral orally three pain No Sodium 75 MG milligra times a day as Longer Delayed Release m needed. Active Oral Tablet (administer with food or milk) 407694 duloxetine 60 60 Oral orally twice a fibromyalgia No MG Delayed milligra day Longer Release Oral m Active Capsule 733504 Eflornithine 1 Topical topically 2 No 139 MG/ML applicat times per day Longer Topical Cream ion (apply thin Active layer on face/chin at least 5 minutes after hair removal and at least 8 hours apart; do not wash for at least 4 hours) 4603 Furosemide 20 Oral orally every No milligra afternoon Longer m Active milligra m LEVOTHYROXIN 200 mcg Oral orally every Hypothyroidism No other day Longer Active levothyroxine 150 Oral orally every No microgra day Longer m Active 263204 Meclizine 25 Oral orally 4 times Dizziness No Hydrochloride milligra per day as Longer 25 MG Oral m needed. Active Tablet 104966 meloxicam 15 MG 15 Oral orally every No Oral Tablet milligra day Longer m Active 6916 Metolazone 2.5 Oral orally every No milligra day Longer m Active milligra m 7646 Omeprazole 20 Oral orally every No milligra day (swallow Longer m whole (do not Active chew/crush/cut ) OR open capsule, sprinkle contents over tablespoonful applesauce; swallow all immediately/do not chew pellets;) 769037 pantoprazole 40 40 MG ORAL ORAL ONCE A 12/05/ No MG Delayed DAY 2016 Longer Release Oral Active Tablet 8591 Potassium 20 Oral orally every No Chloride milliequ day Longer ivalent Active milliequ ivalent 007640 tramadol 50 Oral orally twice a pain No hydrochloride milligra day as needed. Longer 50 MG Oral m Active Tablet Allergies Code Code Allergy Type Reaction Severity Start End Status System Substance Date Date 20341109 RXNorm Cipro Drug Rash Unknown Active allergy (Severe Allergic Rxn) 376015 RXNorm Lipitor Drug Redness Unknown Active allergy (Severe) RXNorm soy Food Throat Unknown Active allergy Swelling (Severe Allergic Rxn) Results Laboratory Results Order: BMP BASIC METABOLIC PANEL LOINC Test Result Flag Range Unit Date 89 75-110 mg/dl 12/04/2017 1Glucose 05:08 1BUN 13 6.0-17.0 mg/dl 12/04/2017 05:08 0.9 0.4-1.2 mg/dl 12/04/2017 1Creatinine 05:08 139 137-145 mmol/l 12/04/2017 1Sodium 05:08 4.1 3.5-5.0 mmol/l 12/04/2017 1Potassium 05:08 105 98-107 mmol/l 12/04/2017 1Chloride 05:08 1CO2 30 22-30 mmol/l 12/04/2017 05:08 8.5 8.4-10.2 mg/dl 12/04/2017 1Calcium 05:08 1EGFR >60 mL/min/1.73 12/04/2017 if m^2 05:08 Fijian 1EGFR >60 mL/min/1.73 12/04/2017 if Non- m^2 05:08 Fijian Note: Estimated Glomerular Filtration Rate (eGFR) Reference [...] management of chronic kidney failure. Performing Lab Footnotes:[address] [place] [address] - [id number] - [address] [place] [address] [place] -MD: DIRECTOR SADIA NICOLE _ Order: CBC PLATELET AUTO DIFF LOINC Test Result Flag Range Unit Date 7.66 4.80-10.80 10^3/ul 12/04/2017 1Leukocytes^^correc 05:08 shalini for nucleated erythrocytes:NCnc:P t:Bld:Qn:Automated count 789-8 4.51 4.20-5.40 10^6/ul 12/04/2017 1Erythrocytes:NCnc: 05:08 Pt:Bld:Qn:Automated count 718-7 11.7 L 12.0-14.0 gm/dl 12/04/2017 1Hemoglobin:MCnc:Pt 05:08 :Bld:Qn 4544-3 37.7 37.0-47.0 % 12/04/2017 1Hematocrit:VFr:Pt: 05:08 Bld:Qn:Automated count 787-2 83.6 81.0-99.0 fL 12/04/2017 1Erythrocyte mean 05:08 corpuscular volume:EntVol:Pt:RB C:Qn:Automated count 785-6 25.9 L 27.0-31.0 pg 12/04/2017 1Erythrocyte mean 05:08 corpuscular hemoglobin:EntMass: Pt:RBC:Qn:Automated count 786-4 31 L 33.0-37.0 gm/dl 12/04/2017 1Erythrocyte mean 05:08 corpuscular hemoglobin concentration:MCnc: Pt:RBC:Qn:Automated count 788-0 16.2 H 11.5-14.5 % 12/04/2017 1Erythrocyte 05:08 distribution width:Ratio:Pt:RBC: Qn:Automated count 777-3 135 130-400 10^3/ul 12/04/2017 1Platelets:NCnc:Pt: 05:08 Bld:Qn:Automated count 17316-8 1Platelet 12.2 A 7.4-10.4 fL 12/04/2017 mean 05:08 volume:EntVol:Pt:Bl d:Qn:Automated count Note: 'NOT MEASURED' RESULTS ARE DISPLAYED WHEN THE INSTRUMENT HAS [...] MORPHOLOGY WILL BE NOTED ON THE REPORT. 770-8 1Neutrophils/100 52.9 42.0-75.0 % 12/04/2017 leukocytes:NFr:Pt:Bld:Qn:Automated 05:08 count 736-9 1Lymphocytes/100 31.9 13.0-42.0 % 12/04/2017 leukocytes:NFr:Pt:Bld:Qn:Automated 05:08 count 5905-5 1Monocytes/100 7 4.0-14.0 % 12/04/2017 leukocytes:NFr:Pt:Bld:Qn:Automated 05:08 count 713-8 1Eosinophils/100 6.7 H 1.0-3.0 % 12/04/2017 leukocytes:NFr:Pt:Bld:Qn:Automated 05:08 count 706-2 1Basophils/100 1.2 1.0-3.0 % 12/04/2017 leukocytes:NFr:Pt:Bld:Qn:Automated 05:08 count 1IG% 0.3 0.0-0.4 % 12/04/2017 05:08 Performing Lab Footnotes:1[facility] - [id number] - [address] [place] [address] POOJA KEENAN: DIRECTOR SADIA NICOLE _ Order: POTASSIUM LOINC Test Result Flag Range Unit Date 4.2 3.5-5.0 mmol/l 12/02/2017 1Potassium 15:45 Performing Lab Footnotes:1[facility] [id number] - [address] [place] [address] POOJA KEENAN: DIRECTOR SADIA NICOLE _ Order: CMP COMPREHENSIVE METABOLIC PANEL LOINC Test Result Flag Range Unit Date 91 75-110 mg/dl 12/02/2017 1Glucose 05:48 1BUN 13 6.0-17.0 mg/dl 12/02/2017 05:48 0.8 0.4-1.2 mg/dl 12/02/2017 1Creatinine 05:48 135 L 137-145 mmol/l 12/02/2017 1Sodium 05:48 3.6 3.5-5.0 mmol/l 12/02/2017 1Potassium 05:48 97 L 98-107 mmol/l 12/02/2017 1Chloride 05:48 1CO2 33 H 22-30 mmol/l 12/02/2017 05:48 8.4 8.4-10.2 mg/dl 12/02/2017 1Calcium 05:48 1T 6.1 5.1-8.7 gm/dl 12/02/2017 Protein 05:48 2.9 L 3.5-4.6 gm/dl 12/02/2017 1Albumin 05:48 1A/G 0.9 L 1.1-2.2 % 12/02/2017 Ratio 05:48 1AST 68 H 11-36 U/L 12/02/2017 (SGOT) 05:48 1ALT 28 11-40 U/L 12/02/2017 (SGPT) 05:48 118 H 47-114 U/L 12/02/2017 1Alkaline Phos 05:48 1Total 1.2 0.2-1.2 mg/dl 12/02/2017 Bilirubin 05:48 3.2 2.3-3.5 gm/dl 12/02/2017 1Globulin 05:48 1Anion 5 12/02/2017 Gap 05:48 9.3 8.4-10.2 mg/dl 12/02/2017 1Calcium, 05:48 Corrected Note: Various formulas exist for corrected serum calcium results, each yielding different values. This corrected result was based on the formula: Corrected Calcium=SerumCalcium + [0.8 * ( 4 - SerumAlbumin)] 1EGFR >60 mL/min/1.73m^2 12/02/2017 05:48 if 1EGFR >60 mL/min/1.73m^2 12/02/2017 05:48 if Non- Note: Estimated Glomerular Filtration Rate [...] management of chronic kidney failure. Performing Lab Footnotes:[address] [place] [address] - [id number] - [address] [place] [address] POOJA -: DIRECTOR SADIA NICOLE _ Order: HEPATITIS PANEL (01241) LOINC Test Result Flag Range Unit Date 99848-4 Negative Negative 11/30/2017 1Hepatitis A 10:45 virus Ab.IgM:ACnc:Pt :Ser/Plas:Ord: EIA 00261-6 Negative Negative 11/30/2017 1Hepatitis B 10:45 virus core Ab.IgM:ACnc:Pt :Ser/Plas:Ord: EIA 5196-1 Negative Negative 11/30/2017 1Hepatitis B 10:45 virus surface Ag:ACnc:Pt:Ser /Plas:Ord:EIA 98750-5 Negative Negative 11/30/2017 1Hepatitis C 10:45 virus Ab:ACnc:Pt:Ser /Plas:Ord:EIA Performing Lab Footnotes:[address] [place], [place] [id number] - [address] [place] [address] -MD: DIRECTOR SADIA NICOLE _ Order: LIVER FUNCTION PANEL LOINC Test Result Flag Range Unit Date 1T 7.2 5.1-8.7 gm/dl 11/30/2017 Protein 09:01 3.5 3.5-4.6 gm/dl 11/30/2017 1Albumin 09:01 1AST 64 H 11-36 U/L 11/30/2017 (SGOT) 09:01 1ALT 26 11-40 U/L 11/30/2017 (SGPT) 09:01 125 H 47-114 U/L 11/30/2017 1Alkaline Phos 09:01 1Total 1.1 0.2-1.2 mg/dl 11/30/2017 Bilirubin 09:01 0.7 H 0.0-0.3 mg/dl 11/30/2017 1Direct 09:01 Bilirubin 0.4 0.0-1.1 mg/dl 11/30/2017 1Indirect 09:01 Bilirubin Performing Lab Footnotes:[address] [place], [place] [id number] - [address] [place] [address] POOJA KEENAN: DIRECTOR SADIA NICOLE _ Order: MAGNESIUM SERUM LOINC Test Result Flag Range Unit Date 1.4 L 1.6-2.3 mg/dl 11/29/2017 1Magnesium 02:54 Performing Lab Footnotes:[address] [place] [address] [id number] [place] [address] POOJA KEENAN: DIRECTOR SADIA NICOLE _ Order: CULTURE BLOOD LOINC Test Result Flag Range Unit Date Specimen: Blood 11/28/2017 23:11 Collected: 11/28/2017 23:11 11/28/2017 23:11 11/28/2017 23:11 Status: Final Last Updated: 11/28/2017 23:11 12/04/2017 08:38 11/28/2017 23:11 11/28/2017 23:11 Culture Result (Final) (Final) 11/28/2017 23:11 No Growth After 5 Days 11/28/2017 23:11 11/28/2017 23:11 11/28/2017 23:11 Order: CULTURE BLOOD LOINC Test Result Flag Range Unit Date Specimen: Blood 11/28/2017 23:11 Collected: 11/28/2017 23:11 11/28/2017 23:11 11/28/2017 23:11 Status: Final Last Updated: 11/28/2017 23:11 12/04/2017 08:38 11/28/2017 23:11 11/28/2017 23:11 Culture Result (Final) (Final) 11/28/2017 23:11 No Growth After 5 Days 11/28/2017 23:11 11/28/2017 23:11 11/28/2017 23:11 Order: CULTURE URINE COLONY COUNT LOINC Test Result Flag Range Unit Date Specimen: Urine Specimens 11/28/2017 16:22 Collected: 11/28/2017 16:22 11/28/2017 16:22 11/28/2017 16:22 Status: Final Last Updated: 11/28/2017 16:22 12/04/2017 06:21 11/28/2017 16:22 11/28/2017 16:22 Culture Result (Final) (Final) 11/28/2017 16:22 >100,000 cc/mL Gram Negative Bacilli 11/28/2017 16:22 11/28/2017 16:22 Isolate (Final) (C) (Final) 11/28/2017 16:22 Escherichia coli ESBL 11/28/2017 16:22 Strains of Klebsiella spp. and 11/28/2017 16:22 Escherichia coli may be clinically resistant to cephalosporin and 11/28/2017 16:22 aztreonam therapy by virtue of extended- 11/28/2017 16:22 spectrum B-lactamase (ESBL) production, 11/28/2017 16:22 despite apparent in vitro susceptibility to some of these agents. 11/28/2017 16:22 Multi-drug resistant organism 11/28/2017 16:22 isolated. 11/28/2017 16:22 Recommendation------Isolation protocol. Amoxicillin/clavu 16 I 11/28/2017 16:22 Ampicillin >=32 R 11/28/2017 16:22 Aztreonam R 11/28/2017 16:22 Cefazolin >=64 R 11/28/2017 16:22 Cefepime R 11/28/2017 16:22 Ceftriaxone >=64 R 11/28/2017 16:22 Ciprofloxacin >=4 R 11/28/2017 16:22 Gentamicin <=1 S 11/28/2017 16:22 Imipenem <=0.25 S 11/28/2017 16:22 Levofloxacin >=8 R 11/28/2017 16:22 Meropenem <=0.25 S 11/28/2017 16:22 Nitrofurantoin <=16 S 11/28/2017 16:22 Tetracycline <=1 S 11/28/2017 16:22 Trimeth/Sulfa <=20 S 11/28/2017 16:22 ESBL Positive + 11/28/2017 16:22 11/28/2017 16:22 11/28/2017 16:22 Order: UA URINALYSIS WITH MICROSCOPY LOINC Test Result Flag Range Unit Date 5778-6 YELLOW 11/28/2017 1Color:Type: 15:55 Pt:Urine:Nom 5767-9 SL CLOUDY 11/28/2017 1Appearance: 15:55 Aper:Pt:Urin e:Nom 2349-9 NEGATIVE NEGATIVE 11/28/2017 1Glucose:ACn 15:55 c:Pt:Urine:O rd 5770-3 SMALL A NEGATIVE 11/28/2017 1Bilirubin:A 15:55 Cnc:Pt:Urine :Ord:Test strip 2514-8 NEGATIVE NEGATIVE 11/28/2017 1Ketones:ACn 15:55 c:Pt:Urine:O rd:Test strip 5811-5 1.015 A 1.005-1.030 11/28/2017 1Specific 15:55 gravity:Rden :Pt:Urine:Qn :Test strip 5794-3 TRACE-LYSED A NEGATIVE 11/28/2017 1Hemoglobin: 15:55 ACnc:Pt:Urin e:Ord:Test strip 5803-2 6.0 A 4.5-8.0 11/28/2017 1pH:LsCnc:Pt 15:55 :Urine:Qn:Te st strip 99622-9 NEGATIVE NEGATIVE 11/28/2017 1Protein:ACn 15:55 c:Pt:Urine:O rd:Test strip 5818-0 4.0 A 0.2 11/28/2017 1Urobilinoge 15:55 n:ACnc:Pt:Ur ine:Ord:Test strip 5802-4 NEGATIVE NEGATIVE 11/28/2017 1Nitrite:ACn 15:55 c:Pt:Urine:O rd:Test strip 5799-2 MODERATE A NEGATIVE 11/28/2017 1Leukocyte 15:55 esterase:ACn c:Pt:Urine:O rd:Test strip 5821-4 TNTC A 0-5 11/28/2017 1Leukocytes: 15:55 Naric:Pt:Uri ne sed:Qn:Micro scopy.light. HPF 30885-4 0-3 A 0-5 11/28/2017 1Erythrocyte 15:55 s:Naric:Pt:U rine sed:Qn:Micro scopy.light. [facility] 69874-2 10-20 A 0-10 11/28/2017 1Epithelial 15:55 cells.[place] us:Naric:Pt: Urine sed:Qn:Micro scopy.light. [facility] 8247-9 Trace A None Seen 11/28/2017 1Mucus:ACnc: 15:55 Pt:Urine sed:Ord:Micr oscopy.light 5769-5 4+ A None 11/28/2017 1Bacteria:Na Seen,Trace 15:55 franklin:Pt:Urine sed:Qn:Micro scopy.light. [facility] 5782-8 Trace Amorphous A None Seen 11/28/2017 1Crystals:Pr Sediment 15:55 id:Pt:Urine sed:Nom:Micr oscopy.light Performing Lab Footnotes:[address] [place], [place] [id number] [place] [address] POOJA KEENAN: DIRECTOR SADIA NICOLE _ Order: AMYLASE SERUM LOINC Test Result Flag Range Unit Date 68 12-103 U/L 11/28/2017 1Amylase 15:42 Performing Lab Footnotes:[address] [place], [place] [id number] [place] [address] POOJA KEENAN: DIRECTOR SADIA NICOLE _ Order: LIPASE SERUM LOINC Test Result Flag Range Unit Date 155 8-223 U/L 11/28/2017 1Lipase 15:42 Performing Lab Footnotes:[address] [place] [address] - [id number] - [address] [facility] [address] -MD: DIRECTOR SADIA NICOLE _ Radiology Results Order: [id number] CT ABDOMEN/PELVIS W/ CONTRASTExam Completion Date:11/28/2017 15:04EXAM: CT Abdomen and Pelvis WITH contrast INDICATION: lower abd pain [phone] COMPARISON: 2016TECHNIQUE: Abdomen and pelvis were scanned utilizing a multidetector helicalscanner from the lung base to the pubic symphysis after administration of IVcontrast. Coronal and sagittal reformations were obtained. Routine protocol wasperformed. Scan was performed when during portal venous phase. IV CONTRAST: 100 mL of Isovue 300 ORAL CONTRAST: Water COMPLICATIONS : NoneRADIATION DOSE: Total DLP: 1285 mGy*cm Estimated effective dose: ( DLP x 0.015 x size factor) mSv CTDIvol has been reviewed. It is below the limits set by the RadiationProtocol Committee (RPC).FINDINGS:LINES and TUBES: None.LOWER THORAX: Stable 4 mm left lower lobe nodule (series 3 image 15) .HEPATOBILIARY: Nodular contour of the liver. Ill-defined 2.5 cm hypoattenuatingarea in the right hepatic lobe (series 2 image 20) is increased in conspicuity.A partially calcified 4.3 x 3.7 cm lesion at the dome is grossly unchanged.Limited evaluation for hepatocellular carcinoma arterial phase. Calcifiedgranuloma in the liver. No biliary ductal dilation. GALLBLADDER: Stents.SPLEEN: No splenomegaly. Multiple calcified granulomas.PANCREAS: No focal masses or ductal dilatation. ADRENALS: No adrenal nodules KIDNEYS/ URETERS: Kidneys enhance symmetrically. No hydronephrosis. No cystic orsolid mass lesions. No stones.GI TRACT: No abnormal distention, suspicious wall thickening, or evidence ofbowel obstruction. Moderate clonic wall thickening may be related to portalcolopathy. There are diverticula within the colon without evidence ofdiverticulitis. PELVIC ORGANS/BLADDER: Unremarkable.LYMPH NODES: Prominent sindy hepatis lymph nodes.VESSELS: Recanalized umbilical vein.PERITONEUM / RETROPERITONEUM: No free air or fluid.BONES: Unremarkable.SOFT TISSUES: Left femoral intramedullary chase with chronic unhealed left femoralneck fracture. There is increased lucency surrounding the distal aspect of thescrew (coronal image 39).IMPRESSION: 1. Cirrhosis with increased conspicuity of an ill-defined 2.5 cm areain theright hepatic lobe which is indeterminate. Recommend further evaluation withnonemergent abdominal MRI without and with contrast.2. Stable indeterminate hypodense partially calcified lesion at the liver dome.3. Portal hypertension with recanalized umbilical vein.4. Left femoral intramedullary chase with increasing lucency surrounding thedistal aspect of the screw which may indicate loosening.This final report was electronically signed by Dr Gerhard Chapman MD 11/28/20175:29 PMDictated By: GÉNESIS CHAPMANODate: 11/28/2017 17:36 Vital Signs Vitals Value Date Body Temperature 97 F 12/04/2017 Respiratory Rate 18 12/04/2017 O2% BldC Oximetry 96 12/04/2017 BP Systolic 118 mmHg 12/04/2017 BP Diastolic 64 mmHg 12/04/2017 Weight Measured 238.09 lbs 12/04/2017 BSA (Body Surface Area) 2.84299 11/28/2017 BMI (Body Mass Index) 37.3 11/28/2017 Height 67 in 11/28/2017 Plan of Care No data in the system Procedures Code Code System Procedure Name Target Site Date of Procedure CT 11/28/2017 17:36 ABDOMEN/PELVIS W/CONTRAST Encounters Date Code Diagnosis Status (SNOMED-CT) - 83730649 UTI SITE NOT SPECIFIED Active Immunizations Vaccine Code Code System Vaccine Name Date Status 109 CVX 06/25/2009 Completed pneumococcal vaccine, NOS 88 CVX influenza 04/09/2013 Completed virus vaccine, NOS Functional Status Code Functional/Cognitive Code System Date Status Condition 817804674 Using wheelchair SNOMED-CT 12/01/2017 Active (observable entity) 503196741 No speech problem SNOMED-CT 12/04/2017 Active (situation) 765543679 Wears glasses SNOMED-CT 11/30/2017 Active 808612525 Light touch, function SNOMED-CT 11/30/2017 Active (observable entity) 048534197 Firm pressure touch, SNOMED-CT 12/04/2017 Active function (observable entity) 797349601 Orientated SNOMED-CT 12/04/2017 Active 232092940 Orientated SNOMED-CT 12/04/2017 Active 886476203 Orientated SNOMED-CT 12/04/2017 Active 564303721 Ability to perform SNOMED-CT 11/28/2017 Active activities of everyday life (observable entity) 311731775 Ability to perform SNOMED-CT 11/28/2017 Active personal hygiene activity (observable entity) 473332826 Ability to manage SNOMED-CT 11/28/2017 Active personal health care (observable entity) 661705218 Assisting with SNOMED-CT 11/28/2017 Active toileting (regime/therapy) 604331348 Unsteady gait SNOMED-CT 12/04/2017 Active 305632289 Oriented to person SNOMED-CT 12/04/2017 Active Hospital Discharge Instructions DC to Long-Term/IRFDischarge To Another FacilityNursing HomeRehabName of [facility]To (Insert Physician Name)LauroraDischarge DiagnosisUTI, generalized weaknessDischarge Nursing / Resp OrdersRoutine VSPrecautionsFall PrecautionsDischarge Diet OrdersCardiacDischarge - Outpatient Referral(s)OP OTOP PTEval and TreatDischarge Meds per DC MED ReconciliationYes ( If yes attach copy)Discharge Documents Given to Pt / NHDischarge orderDischarge Instructions Given
--- OUTSIDE RECORDS SUMMARY | 2018-02-02 16:13 | XMS REPORT | Continuity of Care Document ---
:1945 Author Organization [facility] Care Team Providers Name Role Phone DR CRISTOBAL MCCALLUM Admitting Physician DR CRISTOBAL MCCALLUM Attending Physician Hospital Admission Diagnosis Code Admission Diagnosis Date [id number] Hypertensive heart disease with congestive heart failure Social History Element Code Description Smoking Start Date End Date Description Status Code System Smoking Status [id number] Unknown if ever SNOMED-CT smoked Problems Code Code System Problem Name Start Date End Date Status 317928226 SNOMED-CT Gastroesophageal 11/13/2017 Active reflux disease 28061792 SNOMED-CT Congestive heart 11/13/2017 Active failure (disorder) 225767492 SNOMED-CT Diverticulosis NOS 08/2012 Active 892294207 SNOMED-CT Liver mass 2011 Active 74464999 SNOMED-CT Primary fibromyalgia 2009 Active syndrome 0241355 SNOMED-CT Psoriasis 2000 Active 80442060 SNOMED-CT Hypothyroidism 1985 Active 10873155 SNOMED-CT Hypertensive disorder 1983 Active 530924497 SNOMED-CT Osteoarthritis 1980 Active 646332388 SNOMED-CT Gastroesophageal u Active reflux disease 0320807 SNOMED-CT Diastolic dysfunction u Active 864590344 SNOMED-CT Dyslipidemia u Active 49371943 SNOMED-CT Hypertensive disorder u Active 388915969 SNOMED-CT Osteoarthritis u Active 14855559 SNOMED-CT Hypothyroidism u Active 1922568 SNOMED-CT Psoriasis u Active 42761628 SNOMED-CT Kidney stone u Active 886253365 SNOMED-CT Basal cell carcinoma Unknown Active of forehead 701998689 SNOMED-CT Acute duodenal ulcer LONG AGO Active Medications RxNorm Medication Dose Route Instructions Indications Start End Status Date Date Acetaminophen 1 tablet Oral orally every 8 pain Active 300 MG / hours as Codeine needed. Phosphate 60 MG Oral Tablet 1191 Aspirin 81 Oral orally every Active milligra day m 1202 Atenolol 50 Oral orally every HTN Active milligra morning m 632768 Furosemide 40 40 Oral orally every Active MG Oral Tablet milligra morning m 862053 gabapentin 300 300 MG ORAL ORAL 12/05/ Active MG Oral Capsule 2016 levothyroxine 137 Oral orally every Active microgra day ms 684229 Magnesium 30 ML ORAL ORAL EVERY 11/28/ Active Hydroxide 80 NIGHT AT 2018 MG/ML Oral BEDTIME Suspension NEEDED as needed. 20020718 Omeprazole 40 40 Oral orally every Active MG Delayed milligra day (swallow Release Oral m whole (do not Capsule chew/crush/cut )) 98948 Paroxetine 10 Oral orally every Active milligra day m 19800614 Potassium 20 MEQ ORAL ORAL TWICE A 12/02/ Active Chloride 20 MEQ DAY 2018 Extended Release Oral Tablet 154179 Pravastatin 40 Oral orally every cholesterol Active Sodium 40 MG milligra day at bedtime Oral Tablet m 936839 Sucralfate 1000 1 gram Oral orally before Active MG Oral Tablet meals and at bedtime as needed. (administer 1 hour before meals and at bedtime) 135979 Sulfamethoxazol 1 tablet Oral orally 2 times Active e 800 MG / per day (5 Trimethoprim day) 160 MG Oral Tablet 871138 Acetaminophen 1 tablet Oral orally every 4 pain No 300 MG / to 6 hours as Longer Hydrocodone needed. Active Bitartrate 7.5 MG Oral Tablet 704 Amitriptyline 50 Oral orally No milligra everyday at Longer ms bedtime Active 453050 Amoxicillin 875 1 tablet Oral orally every No MG / 12 hours Longer Clavulanate 125 Active MG Oral Tablet 968931 Diclofenac 75 Oral orally three pain No Sodium 75 MG milligra times a day as Longer Delayed Release m needed. Active Oral Tablet (administer with food or milk) 707870 duloxetine 60 60 Oral orally twice a fibromyalgia No MG Delayed milligra day Longer Release Oral m Active Capsule 006410 Eflornithine 1 Topical topically 2 No 139 MG/ML applicat times per day Longer Topical Cream ion (apply thin Active layer on face/chin at least 5 minutes after hair removal and at least 8 hours apart; do not wash for at least 4 hours) 4607 Furosemide 20 Oral orally every No milligra afternoon Longer m Active milligra m LEVOTHYROXIN 200 mcg Oral orally every Hypothyroidism No other day Longer Active levothyroxine 150 Oral orally every No microgra day Longer m Active 195929 Meclizine 25 Oral orally 4 times Dizziness No Hydrochloride milligra per day as Longer 25 MG Oral m needed. Active Tablet 284455 meloxicam 15 MG 15 Oral orally every No Oral Tablet milligra day Longer m Active 6916 Metolazone 2.5 Oral orally every No milligra day Longer m Active milligra m 7646 Omeprazole 20 Oral orally every No milligra day (swallow Longer m whole (do not Active chew/crush/cut ) OR open capsule, sprinkle contents over tablespoonful applesauce; swallow all immediately/do not chew pellets;) 080893 pantoprazole 40 40 MG ORAL ORAL ONCE A 12/05/ No MG Delayed DAY 2016 Longer Release Oral Active Tablet 8591 Potassium 20 Oral orally every No Chloride milliequ day Longer ivalent Active milliequ ivalent 519807 tramadol 50 Oral orally twice a pain No hydrochloride milligra day as needed. Longer 50 MG Oral m Active Tablet Allergies Code Code Allergy Type Reaction Severity Start End Status System Substance Date Date 20341109 RXNorm Cipro Drug Rash Unknown Active allergy (Severe Allergic Rxn) 980293 RXNorm Lipitor Drug Redness Unknown Active allergy (Severe) RXNorm soy Food Throat Unknown Active allergy Swelling (Severe Allergic Rxn) Results Laboratory Results Order: BMP BASIC METABOLIC PANEL LOINC Test Result Flag Range Unit Date 169 H 75-110 mg/dl 12/30/2017 1Glucose 14:32 1BUN 11 6.0-17.0 mg/dl 12/30/2017 14:32 0.8 0.4-1.2 mg/dl 12/30/2017 1Creatinine 14:32 136 L 137-145 mmol/l 12/30/2017 1Sodium 14:32 3.1 L 3.5-5.0 mmol/l 12/30/2017 1Potassium 14:32 92 L 98-107 mmol/l 12/30/2017 1Chloride 14:32 1CO2 29 22-30 mmol/l 12/30/2017 14:32 8.5 8.4-10.2 mg/dl 12/30/2017 1Calcium 14:32 1EGFR >60 mL/min/1.73 12/30/2017 if m^2 14:32 Somali 1EGFR >60 mL/min/1.73 12/30/2017 if Non- m^2 14:32 Somali Note: Estimated Glomerular Filtration Rate (eGFR) Reference [...] management of chronic kidney failure. Performing Lab Footnotes:[address] [place] [address] - [id number] - [address] [facility] [address] [place] [address] [place] -MD: DIRECTOR SADIA NICOLE _ Order: UA URINALYSIS WITH MICROSCOPY LOINC Test Result Flag Range Unit Date 78-6 Yellow 12/30/2017 1Color:Type: 14:32 Pt:Urine:Nom 5767-9 CLEAR 12/30/2017 1Appearance: 14:32 Aper:Pt:Urin e:Nom 2349-9 NEGATIVE NEGATIVE 12/30/2017 1Glucose:ACn 14:32 c:Pt:Urine:O rd 5770-3 SMALL A NEGATIVE 12/30/2017 1Bilirubin:A 14:32 Cnc:Pt:Urine :Ord:Test strip 2514-8 NEGATIVE NEGATIVE 12/30/2017 1Ketones:ACn 14:32 c:Pt:Urine:O rd:Test strip 5811-5 1.025 A 1.005-1.030 12/30/2017 1Specific 14:32 gravity:Rden :Pt:Urine:Qn :Test strip 5794-3 TRACE-LYSED A NEGATIVE 12/30/2017 1Hemoglobin: 14:32 ACnc:Pt:Urin e:Ord:Test strip 5803-2 6.0 A 4.5-8.0 12/30/2017 1pH:LsCnc:Pt 14:32 :Urine:Qn:Te st strip 28774-1 TRACE A NEGATIVE 12/30/2017 1Protein:ACn 14:32 c:Pt:Urine:O rd:Test strip 5818-0 1.0 A 0.2 12/30/2017 1Urobilinoge 14:32 n:ACnc:Pt:Ur ine:Ord:Test strip 5802-4 NEGATIVE NEGATIVE 12/30/2017 1Nitrite:ACn 14:32 c:Pt:Urine:O rd:Test strip 5799-2 NEGATIVE NEGATIVE 12/30/2017 1Leukocyte 14:32 esterase:ACn c:Pt:Urine:O rd:Test strip 5821-4 20-30 A 0-5 12/30/2017 1Leukocytes: 14:32 Naric:Pt:Uri ne sed:Qn:Micro scopy.light. HPF 76251-0 0-5 A 0-10 12/30/2017 1Epithelial 14:32 cells.squamo us:Naric:Pt: Urine sed:Qn:Micro scopy.light. HPF 5769-5 2+ A None Seen,Trace 12/30/2017 1Bacteria:Na 14:32 franklin:Pt:Urine sed:Qn:Micro scopy.light. HPF Performing Lab Footnotes:[facility] [id number] - [facility] [address] -MD: DIRECTOR SADIA NICOLE _ Vital Signs No data in the system Plan of Care No data in the system Procedures No data in the system Encounters Date Code Diagnosis Status (ICD10) - I110 HTN HEART DISEASE W/HEART FAIL Active Immunizations Vaccine Code Code System Vaccine Name Date Status 109 CVX 06/25/2009 Completed pneumococcal vaccine, NOS 88 CVX influenza 04/09/2013 Completed virus vaccine, NOS Functional Status No data in the system Hospital Discharge Instructions No data in the system
--- OUTSIDE RECORDS SUMMARY | 2018-02-02 16:13 | XMS REPORT | Continuity of Care Document ---
:1945 Author Organization [facility] Care Team Providers Name Role Phone DR CRISTOBAL MCCALLUM Admitting Physician DR CRISTOBAL MCCALLUM Attending Physician Hospital Admission Diagnosis No data in the System SOCIAL HISTORY Smoking Status - No data in the system Problems Code Code System Problem Name Start Date End Date Status 157883718 SNOMED-CT Gastroesophageal 11/13/2017 Active reflux disease 20054378 SNOMED-CT Congestive heart 11/13/2017 Active failure (disorder) 151920224 SNOMED-CT Diverticulosis NOS 08/2012 Active 541781540 SNOMED-CT Liver mass 2011 Active 21667141 SNOMED-CT Primary fibromyalgia 2009 Active syndrome 1791956 SNOMED-CT Psoriasis 2000 Active 33515280 SNOMED-CT Hypothyroidism 1985 Active 46793617 SNOMED-CT Hypertensive disorder 1983 Active 940401684 SNOMED-CT Osteoarthritis 1980 Active 805871025 SNOMED-CT Gastroesophageal u Active reflux disease 7304998 SNOMED-CT Diastolic dysfunction u Active 632236408 SNOMED-CT Dyslipidemia u Active 87274680 SNOMED-CT Hypertensive disorder u Active 232086685 SNOMED-CT Osteoarthritis u Active 26382559 SNOMED-CT Hypothyroidism u Active 2615047 SNOMED-CT Psoriasis u Active 42601077 SNOMED-CT Kidney stone u Active 503925443 SNOMED-CT Basal cell carcinoma Unknown Active of forehead 278589026 SNOMED-CT Acute duodenal ulcer LONG AGO Active Medications RxNorm Medication Dose Route Instructions Indications Start End Status Date Date Acetaminophen 1 tablet Oral orally every 8 pain Active 300 MG / hours as Codeine needed. Phosphate 60 MG Oral Tablet 1191 Aspirin 81 Oral orally every Active milligra day m 1202 Atenolol 50 Oral orally every HTN Active milligra morning m 597217 Furosemide 40 40 Oral orally every Active MG Oral Tablet milligra morning m 149590 gabapentin 300 300 MG ORAL ORAL 06/29/ Active MG Oral Capsule 2016 levothyroxine 137 Oral orally every Active microgra day ms 519020 Magnesium 30 ML ORAL ORAL EVERY 11/28/ Active Hydroxide 80 NIGHT AT 2018 MG/ML Oral BEDTIME Suspension NEEDED as needed. 20020718 Omeprazole 40 40 Oral orally every Active MG Delayed milligra day (swallow Release Oral m whole (do not Capsule chew/crush/cut )) 69650 Paroxetine 10 Oral orally every Active milligra day m 19800614 Potassium 20 MEQ ORAL ORAL TWICE A 12/02/ Active Chloride 20 MEQ DAY 2017 Extended Release Oral Tablet 436317 Pravastatin 40 Oral orally every cholesterol Active Sodium 40 MG milligra day at bedtime Oral Tablet m 862515 Sucralfate 1000 1 gram Oral orally before Active MG Oral Tablet meals and at bedtime as needed. (administer 1 hour before meals and at bedtime) 239079 Sulfamethoxazol 1 tablet Oral orally 2 times Active e 800 MG / per day (5 Trimethoprim day) 160 MG Oral Tablet 076397 Acetaminophen 1 tablet Oral orally every 4 pain No 300 MG / to 6 hours as Longer Hydrocodone needed. Active Bitartrate 7.5 MG Oral Tablet 704 Amitriptyline 50 Oral orally No milligra everyday at Longer ms bedtime Active 873956 Amoxicillin 875 1 tablet Oral orally every No MG / 12 hours Longer Clavulanate 125 Active MG Oral Tablet 293613 Diclofenac 75 Oral orally three pain No Sodium 75 MG milligra times a day as Longer Delayed Release m needed. Active Oral Tablet (administer with food or milk) 615050 duloxetine 60 60 Oral orally twice a fibromyalgia No MG Delayed milligra day Longer Release Oral m Active Capsule 142041 Eflornithine 1 Topical topically 2 No 139 [...] every No microgra day Longer m Active 696288 Meclizine 25 Oral orally 4 times Dizziness No Hydrochloride milligra per day as Longer 25 MG Oral m needed. Active Tablet 602560 meloxicam 15 MG 15 Oral orally every No Oral Tablet milligra day Longer m Active 6916 Metolazone 2.5 Oral orally every No milligra day Longer m Active milligra m 7646 Omeprazole 20 Oral orally every No milligra day (swallow Longer m whole (do not Active chew/crush/cut ) OR open capsule, sprinkle contents over tablespoonful applesauce; swallow all immediately/do not chew pellets;) 858782 pantoprazole 40 40 MG ORAL ORAL ONCE A 12/05/ No MG Delayed DAY 2016 Longer Release Oral Active Tablet 8591 Potassium 20 Oral orally every No Chloride milliequ day Longer ivalent Active milliequ ivalent 202347 tramadol 50 Oral orally twice a pain No hydrochloride milligra day as needed. Longer 50 MG Oral m Active Tablet Allergies Code Code Allergy Type Reaction Severity Start End Status System Substance Date Date 20341109 RXNorm Cipro Drug Rash Unknown Active allergy (Severe Allergic Rxn) 721848 RXNorm Lipitor Drug Redness Unknown Active allergy [...]
[2018-02-02] MEDS ORDERED: NA CHLORIDE 0.9% 1,000 ML ONE ×3 (16:37→20:19)
[2018-02-02 16:52] LABS: Absolute Monocytes 0.7 K/uL (0.1-1.3); Absolute Neutrophil 5.7 K/uL (1.8-8.0); Basophils % 0.2 % (0-1.3); Eosinophils % 2.6 % (0-4.4); Hematocrit 37.6 % (36.0-45.0); Lymphocytes % 23.3 % (15.3-44.8); MCH 25.8 pg (27.0-35.0); MCV 79.1 fL (80-100); MPV 9.7 fL (7.6-11.3); Monocytes % 8.2 % (3.3-12.3); RBC Red Blood Cell Count 4.75 M/uL (3.86-4.86)
[2018-02-02 17:10] LABS: Protime INR 1.41
[2018-02-02 17:23] LABS: Albumin 2.5 g/dL (3.4-5.0); Bilirubin Direct 0.3 mg/dL (0-0.2); Bilirubin Total 0.7 mg/dL (0.2-1.0); Magnesium 1.8 mg/dL (1.8-2.4); Protein, Total 6.7 g/dL (6.4-8.2)
[2018-02-02 17:30] LABS: Potassium 2.7 mmol/L (3.5-5.1)
[2018-02-02] MEDS ORDERED: POTASSIUM CL SA 10 MEQ TAB PO ONE (17:45)
[2018-02-02] MEDS ORDERED: KCL 20 MEQ/100 mL IVPB 20 MEQ/100 ML BAG IV ONE (17:45)
--- NOTE | 2018-02-02 17:46 | ER ---
Nurse's Notes [facility] Name: Carina Bal Age: 72 yrs Sex: Female : 1945 Arrival Date: 02/02/2018 Time: 16:09 Bed 2 Private MD: Ellie Ramirez Diagnosis: Acute kidney failure;Hypokalemia;Hypotension Presentation: 02/02 16:11 Presenting complaint: Patient states: dizziness and generalized weakness that began 3 aa5 days ago. Pt's niece states "I took her blood pressure about 30 minutes ago and it was 87/49". Transition of care: patient was not received from another setting of care. Onset of symptoms was February 02, 2018. Risk Assessment: Do you want to hurt yourself or someone else? Patient reports no desire to harm self or others. Care prior to arrival: None. 16:11 Method Of Arrival: Wheelchair aa5 16:11 Acuity: GUY 2 aa5 19:10 Initial Sepsis Screen: Does the patient meet any 2 criteria? No. Patient's initial ea sepsis screen is negative. Does the patient have a suspected source of infection? No. Patient's initial sepsis screen is negative. Historical: - Allergies: 16:13 No Known Allergies; aa5 - PMHx: 16:16 Liver mass; Thyroid problem; Neuropathy; Hyperlipidemia; Fluid retention; Chronic UTI; aa5 Hypertension; Acid Reflux; - PSHx: 16:16 Knee surgery; shoulder; aa5 - Immunization history:: Pneumococcal vaccine status is unknown, Flu vaccine status is unknown. - Social history:: Smoking status: Patient/guardian denies using tobacco. - Ebola Screening: : No symptoms or risks identified at this time. Screenin:49 Abuse screen: Denies threats or abuse. Denies injuries from another. Nutritional aj screening: No deficits noted. Tuberculosis screening: No symptoms or risk factors identified. Fall Risk None identified. Assessment: 16:49 General: Appears in no apparent distress. comfortable, Behavior is calm, cooperative, aj appropriate for age. Pain: Denies pain. Neuro: Level of Consciousness is awake, alert, obeys commands, Oriented to person, place, time, situation, Appropriate for age Reports dizziness. Respiratory: Airway is patent Respiratory effort is even, unlabored, Respiratory pattern is regular, symmetrical. GI: No signs and/or symptoms were reported involving the gastrointestinal system. Derm: Skin is intact, is healthy with good turgor, Skin is pink, warm \\T\\ dry. normal. 17:21 Reassessment: Patient appears in no apparent distress at this time. No changes from aj previously documented assessment. Patient and/or family updated on plan of care and expected duration. Pain level reassessed. Patient is alert, oriented x 3, equal unlabored respirations, skin warm/dry/pink. Patient is awake and alert in bed. Denies pain or dizziness at this time. 18:40 Reassessment: Patient appears in no apparent distress at this time. No changes from aj previously documented assessment. Patient and/or family updated on plan of care and expected duration. Pain level reassessed. Patient is alert, oriented x 3, equal unlabored respirations, skin warm/dry/pink. Patient has family at bedside, denies dizziness. 19:08 General: Appears in no apparent distress. comfortable, Behavior is calm, cooperative, ea appropriate for age. Pain: Denies pain. Neuro: Level of Consciousness is awake, alert, obeys commands, Oriented to person, place, time, situation. Respiratory: Airway is patent Respiratory effort is even, unlabored, Respiratory pattern is regular, symmetrical, Breath sounds are clear bilaterally. GI: Abdomen is non-distended, Bowel sounds present X 4 quads. : No signs and/or symptoms were reported regarding the genitourinary system. : Mcdaniel in place to gravity drainage. Derm: Skin is pink, warm \\T\\ dry. 20:30 Reassessment: Patient and/or family updated on plan of care and expected duration. Pain ea level reassessed. Patient is alert, oriented x 3, equal unlabored respirations, skin warm/dry/pink. Patient denies pain at this time. 21:09 Reassessment: Patient and/or family updated on plan of care and expected duration. Pain ea level reassessed. Patient is alert, oriented x 3, equal unlabored respirations, skin warm/dry/pink. Report called to Matthew GORDON on fourth floor. Vital Signs: 16:11 BP 85 / 54; Pulse 61; Resp 16 S; Temp 97.8(TE); Pulse Ox 97% on R/A; Weight 99.79 kg aa5 (R); Height 5 ft. 7 in. (170.18 cm) (R); 16:49 BP 86 / 44; Pulse 59; Resp 20; Pulse Ox 98% on R/A; aj 17:21 BP 82 / 44; Pulse 59; Resp 18; Pulse Ox 98% on R/A; aj 17:52 BP 84 / 43; Pulse 57; Resp 18; Pulse Ox 98% on R/A; aj 18:06 BP 86 / 46; Pulse 57; Resp 16; Pulse Ox 98% on R/A; aj 18:25 BP 88 / 49; Pulse 58; Resp 17; Pulse Ox 98% on R/A; aj 18:35 BP 90 / 43; Pulse 58; Resp 16; Pulse Ox 99% on R/A; aj 18:49 BP 92 / 49; Pulse 58; Resp 18; Pulse Ox 98% on R/A; aj 19:19 BP 91 / 46; Pulse 59; Resp 18; Pulse Ox 97% ; ea 20:45 BP 96 / 55; Pulse 61; Resp 18; Pulse Ox 97% on R/A; Pain 0/10; ea 21:09 BP 90 / 45; Pulse 70; Resp 18; Pulse Ox 98% ; Pain 0/10; ea 16:11 Body Mass Index 34.46 (99.79 kg, 170.18 cm) aa5 ED Course: 16:09 Patient arrived in ED. mr 16:09 Ellie Ramirez MD is Private Physician. mr 16:13 Triage completed. aa5 16:13 Arm band placed on. aa5 16:15 Patient placed in an exam room, on a stretcher. aa5 16:17 Jonah Molina PA is PHCP. jr8 16:17 Bryant Daugherty MD is Attending Physician. jr8 16:30 Missed attempt(s): 20 gauge in right antecubital area. Bleeding controlled, band aid dh3 applied, catheter tip intact. 16:31 Susanne Spann, HEIDI is Primary Nurse. aj 16:33 EKG done, by digital imaging technician. reviewed by Jonah RAMIREZ. sm3 16:35 Missed attempt(s): 20 gauge in left antecubital area. Bleeding controlled, band aid jl7 applied, catheter tip intact. 16:39 Note: nurse is doing a central line, will call when ready. kw1 16:49 Patient has correct armband on for positive identification. Placed in gown. Side rails aj up X2. Adult w/ patient. surveillance system monitor on. Pulse ox on. NIBP on. 16:49 Inserted saline lock: 20 gauge in left EJ, using aseptic technique. Blood collected. aj 17:37 CT Head Brain wo Cont In Process Unspecified. EDMS 17:44 X-ray completed. Patient tolerated procedure well. Patient moved back from radiology. az 17:45 XRAY Chest (1 view) In Process Unspecified. EDMS 17:46 Devon Casarez MD is Hospitalizing Provider. jr8 18:18 Mcdaniel cath inserted, using sterile technique, 18 Fr., by ga, balloon inflated, to aj gravity drainage, urine specimen collected. returned clear yellow urine. Patient tolerated well. 19:08 Adelia Moser, HEIDI is Primary Nurse. ea 20:46 No provider procedures requiring assistance completed. Patient admitted, IV remains in ea place. Administered Medications: 16:27 CANCELLED (Physician Discretion): NS 0.9% 1000 ml IV at 1000 ml once jr8 16:48 Drug: NS 0.9% 500 ml Route: IV; Rate: bolus; Site: left jugular; aj 17:22 Follow up: Response: No adverse reaction; IV Status: Completed infusion; IV Intake: aj 500ml 17:53 Drug: NS 0.9% 1000 ml Route: IV; Rate: 1000 ml; Site: left jugular; aj 19:00 Follow up: IV Status: Completed infusion; IV Intake: 1000ml ea 17:53 Drug: Potassium Chloride 20 mEq Route: IV; Rate: calculated rate; Site: left jugular; aj 20:00 Follow up: Response: No adverse reaction; IV Status: Completed infusion ea 18:40 Drug: Potassium Chloride 40 mEq Route: PO; aj 19:11 Follow up: Response: No adverse reaction ea 20:30 Drug: NS 0.9% 500 ml {Note: left EJ.} Route: IV; Rate: bolus; Site: Other; ea 21:20 Follow up: Response: No adverse reaction; IV Status: Completed infusion; IV Intake: ea 500ml 20:32 Drug: NS 0.9% 1000 ml {Note: left EJ.} Route: IV; Rate: 125 ml/hr; Site: Other; ea 21:21 Follow up: Response: No adverse reaction; IV Status: Infusion continued upon admission ea Intake: 17:22 IV: 500ml; Total: 500ml. aj 19:00 IV: 1000ml; Total: 1500ml. juan david 21:20 IV: 500ml; Total: 2000ml. ea Output: 18:35 Urine: 100ml (Mcdaniel); Total: 100ml. radha Outcome: 17:46 Decision to Hospitalize by Provider. jr8 19:30 Admitted to Med/surg accompanied by tech, room 409, with chart, Report called to Matthew fall RN 19:30 Condition: stable 19:30 Instructed on the need for admit. 21:22 Patient left the ED. juan david Signatures: Dispatcher [employer] EDSusanne Arrington, RN RN Dyana Mckeon mr Morrow, [place], RN RN aa5 Jonah Molina PA PA jr8 Jack Haro, RN RN jl7 Tracey Poe 3 Adelia Moser RN RN Raven Hopkins 1 Silvia Torres 3 Charlette Browne Corrections: (The following items were deleted from the chart) 16:40 16:[address] kw1 kw1 17:53 17:52 BP 82 / 44; Pulse 57bpm; Resp 18bpm; Pulse Ox 98% RA; aj aj
--- NOTE | 2018-02-02 17:46 | EDPHYS ---
Physician Documentation [facility] Name: Carina Bal Age: 72 yrs Sex: Female : 1945 Arrival Date: 02/02/2018 Time: 16:09 Bed 2 Private MD: Ellie Ramirez ED Physician Bryant Daugherty HPI: 02/02 16:45 This 73 yrs old Female presents to ER via Wheelchair with complaints of Blood jr8 Pressure Problem, Dizziness. 16:45 The patient presents with dizziness, sense of spinning. Onset: The symptoms/episode jr8 began/occurred gradually, 3 day(s) ago. Context: occurred at home, occurred while the patient was at rest. Modifying factors: The symptoms are alleviated by nothing, the symptoms are aggravated by standing up. Associated signs and symptoms: The patient has no apparent associated signs or symptoms. Severity of symptoms: At their worst the symptoms were moderate in the emergency department the symptoms are unchanged. Patient's baseline: Neuro: alert and fully oriented, Motor: no deficits, Ambulation: walks without assistance, Speech: normal. The patient has not experienced similar symptoms in the past. The patient has not recently seen a physician. Stated that she has had three days of weakness and dizziness. Denies change in medication or new medications. Denies fevers. Daughter checked her BP and noticed it to be low. Historical: - Allergies: 16:13 No Known Allergies; aa5 - PMHx: 16:16 Liver mass; Thyroid problem; Neuropathy; Hyperlipidemia; Fluid retention; Chronic UTI; aa5 Hypertension; Acid Reflux; - PSHx: 16:16 Knee surgery; shoulder; aa5 - Immunization history:: Pneumococcal vaccine status is unknown, Flu vaccine status is unknown. - Social history:: Smoking status: Patient/guardian denies using tobacco. - Ebola Screening: : No symptoms or risks identified at this time. ROS: 16:45 Eyes: Negative for injury, pain, redness, and discharge, ENT: Negative for injury, jr8 pain, and discharge, Neck: Negative for injury, pain, and swelling, Cardiovascular: Negative for chest pain, palpitations, and edema, Respiratory: Negative for shortness of breath, cough, wheezing, and pleuritic chest pain, Abdomen/GI: Negative for abdominal pain, nausea, vomiting, diarrhea, and constipation, Back: Negative for injury and pain, MS/Extremity: Negative for injury and deformity, Skin: Negative for injury, rash, and discoloration. 16:45 Neuro: Positive for dizziness, weakness, Negative for altered mental status, gait disturbance, headache, hearing loss, loss of consciousness, numbness, seizure activity, speech changes, syncope, near syncope, tingling, tinnitus, tremor, visual changes. Exam: 16:45 Eyes: Pupils equal round and reactive to light, extra-ocular motions intact. Lids and jr8 lashes normal. Conjunctiva and sclera are non-icteric and not injected. Cornea within normal limits. Periorbital areas with no swelling, redness, or edema. ENT: Nares patent. No nasal discharge, no septal abnormalities noted. Tympanic membranes are normal and external auditory canals are clear. Oropharynx with no redness, swelling, or masses, exudates, or evidence of obstruction, uvula midline. Mucous membranes moist. Neck: Trachea midline, no thyromegaly or masses palpated, and no cervical lymphadenopathy. Supple, full range of motion without nuchal rigidity, or vertebral point tenderness. No Meningismus. Cardiovascular: Regular rate and rhythm with a normal S1 and S2. No gallops, murmurs, or rubs. Normal PMI, no JVD. No pulse deficits. Respiratory: Lungs have equal breath sounds bilaterally, clear to auscultation and percussion. No rales, rhonchi or wheezes noted. No increased work of breathing, no retractions or nasal flaring. Abdomen/GI: Soft, non-tender, with normal bowel sounds. No distension or tympany. No guarding or rebound. No evidence of tenderness throughout. Back: No spinal tenderness. No costovertebral tenderness. Full range of motion. Skin: Warm, dry with normal turgor. Normal color with no rashes, no lesions, and no evidence of cellulitis. MS/ Extremity: Pulses equal, no cyanosis. Neurovascular intact. Full, normal range of motion. Neuro: Awake and alert, GCS 15, oriented to person, place, time, and situation. Cranial nerves II-XII grossly intact. Motor strength 5/5 in all extremities. Sensory grossly intact. Cerebellar exam normal. Normal gait. 17:52 ECG was reviewed by the Attending Physician. [facility] Vital Signs: 16:11 BP 85 / 54; Pulse 61; Resp 16 S; Temp 97.8(TE); Pulse Ox 97% on R/A; Weight 99.79 kg aa5 (R); Height 5 ft. 7 in. (170.18 cm) (R); 16:49 BP 86 / 44; Pulse 59; Resp 20; Pulse Ox 98% on R/A; aj 17:21 BP 82 / 44; Pulse 59; Resp 18; Pulse Ox 98% on R/A; aj 17:52 BP 84 / 43; Pulse 57; Resp 18; Pulse Ox 98% on R/A; aj 18:06 BP 86 / 46; Pulse 57; Resp 16; Pulse Ox 98% on R/A; aj 18:25 BP 88 / 49; Pulse 58; Resp 17; Pulse Ox 98% on R/A; aj 18:35 BP 90 / 43; Pulse 58; Resp 16; Pulse Ox 99% on R/A; aj 18:49 BP 92 / 49; Pulse 58; Resp 18; Pulse Ox 98% on R/A; aj 19:19 BP 91 / 46; Pulse 59; Resp 18; Pulse Ox 97% ; ea 20:45 BP 96 / 55; Pulse 61; Resp 18; Pulse Ox 97% on R/A; Pain 0/10; ea 21:09 BP 90 / 45; Pulse 70; Resp 18; Pulse Ox 98% ; Pain 0/10; ea 16:11 Body Mass Index 34.46 (99.79 kg, 170.18 cm) aa5 MDM: 16:17 Patient medically screened. jr8 17:45 Data reviewed: vital signs, nurses notes, lab test result(s), radiologic studies, CT jr8 scan, plain films, and as a result, I will admit patient. Data interpreted: Pulse oximetry: on room air is 98 %. Interpretation: normal. Counseling: I had a detailed discussion with the patient and/or guardian regarding: the historical points, exam findings, and any diagnostic results supporting the discharge/admit diagnosis, lab results, radiology results, the need for further work-up and treatment in the hospital. Physician consultation: Deovn Casarez MD was called at 17:45, was contacted at 17:45, regarding admission, to the telemetry unit. consult, patient's condition, and will see patient. 02/02 16: Order name: Basic Metabolic Panel; Complete Time: 17:31 jr8 02/02 16:26 Order name: CBC with Diff; Complete Time: 16:56 02/02 16:26 Order name: CPK; Complete Time: 17:31 02/02 16:26 Order name: LFT's; Complete Time: 17:31 02/02 16:26 Order name: Magnesium; Complete Time: 17:31 02/02 16:26 Order name: NT PRO-BNP; Complete Time: 17:31 02/02 16:26 Order name: PT-INR; Complete Time: 17:25 02/02 16:26 Order name: Troponin (emerg Dept Use Only); Complete Time: 17:14 02/02 18:04 Order name: CBC with Automated Diff EDMS 02/02 18:04 Order name: CBC with Automated Diff EDMS 02/02 18:04 Order name: CBC with Automated Diff EDMS 02/02 18:04 Order name: CBC with Automated Diff EDMS 02/02 18:04 Order name: Comprehensive Metabolic Panel EDMS 02/02 18:04 Order name: Comprehensive Metabolic Panel EDMS 02/02 16:26 Order name: XRAY Chest (1 view); Complete Time: 17:59 02/02 16:27 Order name: CT Head Brain wo Cont; Complete Time: 18:00 [facility] 02/02 18:04 Order name: Comprehensive Metabolic Panel EDMS 02/02 18:04 Order name: Comprehensive Metabolic Panel EDMS 02/02 18:04 Order name: Magnesium EDMS 02/02 18:04 Order name: Magnesium EDMS 02/02 18:04 Order name: Phosphorus EDMS 02/02 18:04 Order name: Phosphorus EDMS 02/02 18:36 Order name: Urine Dipstick--Ancillary (enter results); Complete Time: 19:18 02/02 16:26 Order name: EKG; Complete Time: 16:27 02/02 16:26 Order name: Cardiac monitoring; Complete Time: 16:51 02/02 16:26 Order name: EKG - Nurse/Tech; Complete Time: 17:03 02/02 16:26 Order name: IV Saline Lock; Complete Time: 16:51 02/02 16:26 Order name: Labs collected and sent; Complete Time: 16:51 02/02 16:26 Order name: O2 Per Protocol; Complete Time: 16:51 8 02/02 16:26 Order name: O2 Sat Monitoring; Complete Time: 16:51 02/02 16:26 Order name: Urine Dipstick-Ancillary (obtain specimen); Complete Time: 18:40 8 02/02 17:38 Order name: Mcdaniel; Complete Time: 18:40 8 02/02 18:04 Order name: CONS Physician Consult [facility] 02/02 18:04 Order name: Physical Therapy Consult [facility] 02/02 18:04 Order name: Renal EDMS EC:52 Rate is 57 beats/min. Rhythm is regular, Sinus bradycardia. QRS [place] is Normal. NM jr8 interval is normal at 192 msec. QRS interval is normal at 124 msec. QT interval is prolonged at 529 msec. No Q waves. T waves are Inverted in lead III. No ST changes noted. Clinical impression: NSR w/ Non-specific ST/T Changes. Interpreted by me. Reviewed by me. Administered Medications: 16:27 CANCELLED (Physician Discretion): NS 0.9% 1000 ml IV at 1000 ml once jr8 16:48 Drug: NS 0.9% 500 ml Route: IV; Rate: bolus; Site: left jugular; aj 17:22 Follow up: Response: No adverse reaction; IV Status: Completed infusion; IV Intake: aj 500ml 17:53 Drug: NS 0.9% 1000 ml Route: IV; Rate: 1000 ml; Site: left jugular; aj 19:00 Follow up: IV Status: Completed infusion; IV Intake: 1000ml ea 17:53 Drug: Potassium Chloride 20 mEq Route: IV; Rate: calculated rate; Site: left jugular; aj 20:00 Follow up: Response: No adverse reaction; IV Status: Completed infusion ea 18:40 Drug: Potassium Chloride 40 mEq Route: PO; aj 19:11 Follow up: Response: No adverse reaction ea 20:30 Drug: NS 0.9% 500 ml {Note: left EJ.} Route: IV; Rate: bolus; Site: Other; ea 21:20 Follow up: Response: No adverse reaction; IV Status: Completed infusion; IV Intake: ea 500ml 20:32 Drug: NS 0.9% 1000 ml {Note: left EJ.} Route: IV; Rate: 125 ml/hr; Site: Other; ea 21:21 Follow up: Response: No adverse reaction; IV Status: Infusion continued upon admission ea Disposition: 02/03 12:12 Co-signature as Attending Physician, Bryant Daugherty MD I agree with the assessment and neda plan of care. Disposition: 02/02/18 17:46 Hospitalization ordered by Devon Casarez for Inpatient Admission. Preliminary diagnosis are Acute kidney failure, Hypokalemia, Hypotension. - Bed requested for Telemetry/MedSurg (Inpatient). - Status is Inpatient Admission. ea - Condition is Fair. - Problem is new. - Symptoms have improved. UTI on Admission? No Signatures: Dispatcher [employer] EDMS Pablito Dougherty rg2 Susanne Spann RN Bryant Kirk MD MD cha Calderon, Audri RN RN aa5 Jonah Molina PA PA jr8 Adelia Moser RN RN ea Corrections: (The following items were deleted from the chart) 02/02 16:27 16:27 NS 0.9% 1000 ml IV at 1000 ml once ordered. jr8 jr8 20:26 17:46 Hospitalization Ordered by Devon Casarez MD for Inpatient Admission. Preliminary rg2 diagnosis is Acute kidney failure; Hypokalemia; Hypotension. Bed requested for Telemetry/MedSurg (Inpatient). Status is Inpatient Admission. Condition is Fair. Problem is new. Symptoms have improved. UTI on Admission? No. jr8 21:22 20:26 02/02/2018 17:46 Hospitalization Ordered by Devon Casarez MD for Inpatient ea Admission. Preliminary diagnosis is Acute kidney failure; Hypokalemia; Hypotension. Bed requested for Telemetry/MedSurg (Inpatient). Status is Inpatient Admission. Condition is Fair. Problem is new. Symptoms have improved. UTI on Admission? No. rg2
--- NOTE | 2018-02-02 17:56 | RAD REPORT ---
EXAM DESCRIPTION: [place] Single View02/02/2018 5:46 pm CLINICAL HISTORY: Shortness of breath COMPARISON: none FINDINGS: Mild right basilar opacity may represent atelectasis. The left lung appears clear. The heart is normal size
--- NOTE | 2018-02-02 18:00 | RAD REPORT ---
EXAM DESCRIPTION: CT - Head Brain Wo Cont - 02/02/2018 5:37 pm CLINICAL HISTORY: Dizziness COMPARISON: None. TECHNIQUE: Computed axial tomography of the head was obtained. IV contrast was not requested. All CT scans are performed using dose optimization technique as appropriate and may include automated exposure control or mA/KV adjustment according to patient size. FINDINGS: An intracranial bleed is not seen . The ventricles are normal in caliber. Mild low-density area within the periventricular white matter m ay represent ischemic changes secondary to mild small vessel disease No extra-axial fluid collection is noted. Fluid within the sinuses/ mastoids is not seen. IMPRESSION: No acute intracranial abnormality is seen. If patient's symptoms persist MRI of the bra in would be recommended.
[2018-02-02] MEDS ORDERED: ONDANSETRON 4 MG/2 ML VIAL IV PRN (18:01)
[2018-02-02] MEDS: NA CHLORIDE 0.9% 1,000 ML IV SCH (19:00)
--- NOTE | 2018-02-02 19:06 | EKG ---
Test Date: 2018-02-02 Test Time: 16:24:55 [place] [facility] [place]: [facility] MEASUREMENT RESULTS: Intervals: Rate: 57 RI: 192 QRSD: 124 QT: 544 QTc: 529 Hayes: P: 30 RI: 192 QRS: 6 T: 11 INTERPRETIVE STATEMENTS: Sinus bradycardia Nonspecific intraventricular conduction delay Borderline ECG No previous ECG available for comparison Electronically Signed On 02-02-18 19:05:55 CDT by Erasmo Rees
[2018-02-02 19:12] LABS: Urine Blood NEGATIVE (NEG); Urine Glucose NEGATIVE (NEG); Urine Protein NEGATIVE (NEG); Urine pH 5.5 (5.0-7.0)
[2018-02-02] MEDS ORDERED: NA CHLORIDE 0.9% 500 ML ONE (20:19)
[2018-02-03 04:20] LABS: Absolute Lymphocytes (CBC) 1.8 K/uL (0.7-4.9); Absolute Monocytes 0.7 K/uL (0.1-1.3); Absolute Neutrophil 4.9 K/uL (1.8-8.0); Eosinophils % 2.9 % (0-4.4); Hematocrit 35.2 % (36.0-45.0); Lymphocytes % 23.1 % (15.3-44.8); MCH 26.3 pg (27.0-35.0); MCV 79.3 fL (80-100); MPV 9.7 fL (7.6-11.3); Monocytes % 9.5 % (3.3-12.3); RBC Red Blood Cell Count 4.44 M/uL (3.86-4.86)
[2018-02-03 04:42] LABS: Albumin 2.3 g/dL (3.4-5.0); Bilirubin Total 0.6 mg/dL (0.2-1.0); Magnesium 1.5 mg/dL (1.8-2.4); Phosphorus 3.2 mg/dL (2.5-4.9); Protein, Total 6.1 g/dL (6.4-8.2)
[2018-02-03 04:46] LABS: Potassium 2.7 mmol/L (3.5-5.1)
[2018-02-03] MEDS ORDERED: POTASSIUM 25 MEQ EFFERV TAB PO ONE (06:00)
[2018-02-03] MEDS ORDERED: Magnesium Sulfate 2gm IVPB 2 G/50 ML BAG IV ONE (06:00)
[2018-02-03] MEDS: NA CHLORIDE 0.9% 1,000 ML IV SCH ×2 (06:31→16:49)
--- NOTE | 2018-02-03 07:23 | P.HP ---
Certification for Inpatient Patient admitted to: Inpatient With expected LOS: >2 Midnights Patient will require the following post-hospital care: None Practitioner: I am a practitioner with admitting privileges, knowledge of patient current condition, hospital course, and medical plan of care. Services: Services provided to patient in accordance with Admission requirements found in Title 42 Section 412.3 of the Code of Federal Regulations Patient History Date of Service: 02/02/18 Reason for admission: Hypotension; acute kidney injury; hypokalemia History of Present Illness: Patient is a 72-year-old female who came into the hospital with lightheadedness. She said she was dizzy and the room was spinning. This is been going on for last couple of days in her symptoms have been gradually getting worse. She had her daughter checked her blood pressure and she found that she was hypotensive. She finally came into the emergency room for further evaluation. In the emergency room, she remained hypotensive. She was started on IV fluids and her symptoms had improved. She also had multiple electrolyte abnormalities including hypokalemia and hypomagnesemia. Patient had mild acute kidney injury She'll be hydrated and her electrolytes will be replaced. She will be admitted to the hospital for further evaluation. Allergies No Known Allergies Allergy (Unverified 02/02/18 19:16) Home Medications: Aspirin [Aspir-Low] 81 mg PO DAILY 6PM 02/03/18 Atenolol [Tenormin] 50 mg PO DAILY 6PM 02/03/18 Furosemide 40 mg PO BID 02/03/18 Gabapentin [Gralise] 300 mg PO BID 02/03/18 Levothyroxine [Synthroid] 137 mcg PO DAILY 02/03/18 PARoxetine HCl [Paxil] 10 mg PO SEECOM 02/03/18 Potassium Chloride 10 meq PO BID 02/03/18 Pravastatin Sodium 40 mg PO SEECOM 02/03/18 Sucralfate [Carafate -Tab] 1 gm PO AC 02/03/18 metOLazone [Zaroxolyn] 2.5 mg PO SEECOM 02/03/18 - Past Medical/Surgical History Has patient received pneumonia vaccine in the past: No Diabetic: No -: liver mass, thyroid problem, neuropathy -: hyperlipidemia, fluid retention, chronic UTI -: hypertension, acid reflux -: knee surgery, shoulder surgery - Family History Father Family History: Reviewed- Non-Contributory - Social History Smoking Status: Never smoker Alcohol use: No CD- Drugs: No Caffeine use: Yes Place of Residence: Home Review of Systems 10-point ROS is otherwise unremarkable Physical Examination - Vital Signs Temperature: 97.9 F Blood Pressure: 91/53 Pulse: 64 Respirations: 20 Pulse Ox (%): 91 - Physical Exam General: Alert, In no apparent distress, Oriented x3 HEENT: Atraumatic, Normocephalic, PERRLA Neck: Supple, 2+ carotid pulse no bruit, JVD not distended, No Thyromegaly, No LAD Respiratory: Clear to auscultation bilaterally, Normal air movement Cardiovascular: No edema, Regular rate/rhythm, Normal S1 S2 Gastrointestinal: Normal bowel sounds, Hypoactive, Soft and benign, Non- distended, W/out succussion splash Musculoskeletal: No clubbing, Swelling Integumentary: No breakdown Neurological: Normal speech, Normal tone, Sensation intact, Cranial nerves 3-12 intact, Normal reflexes 2+, Abnormal gait, Abnormal strength - Studies Laboratory Data (last 24 hrs) 02/02/18 16:44: PT 16.7 H, INR 1.41 02/02/18 16:44: WBC 8.7, Hgb 12.3, Hct 37.6, Plt Count 207 02/02/18 16:44: Sodium 133 L, Potassium 2.7 L*, BUN 43 H, Creatinine 3.30 H, Glucose 126 H, Magnesium 1.8, Total Bilirubin 0.7, AST 50 H, ALT 20, Alkaline Phosphatase 128 H Assessment & Plan - Problems (Diagnosis) (1) Syncope Current Visit: Yes Status: Acute (2) Hypokalemia Current Visit: Yes Status: Acute (3) Hypomagnesemia Current Visit: Yes Status: Acute (4) Acute kidney injury Current Visit: Yes Status: Acute (5) Hypoalbuminemia due to protein-calorie malnutrition Current Visit: Yes Status: Acute - Plan Plan: 1. Continue with IV hydration 2. Electrolyte replacement 3. Physical therapy evaluation 4. Hold off on diuretics 5. Supplement with protein supplementation 6. Strict blood pressure and blood sugar control 7. GI and DVT prophylaxis - Advance Directives Does patient have a Living Will: Yes Does patient have a Durable POA for Healthcare: Yes - Code Status/Comfort Care Code Status Assessed: Yes Code Status: Full Code Critical Care: No Time Spent Managing PTS Care (In Minutes): 50
[2018-02-03] MEDS ORDERED: PNEUMOCOCCAL VACCINE 0.5 ML IMVAC ONE (08:00)
[2018-02-03] MEDS: ENSURE HIGH PROTEIN 237 ML CAN PO SCH ×3 (09:05→20:35)
[2018-02-03 12:42] LABS: Magnesium 2.3 mg/dL (1.8-2.4); Potassium 3.5 mmol/L (3.5-5.1)
[2018-02-03] MEDS: SUCRALFATE 1 GM TABLET PO SCH ×2 (13:09→16:51)
[2018-02-03] MEDS: PARoxetine HCl 10 MG TAB PO SCH (13:11)
[2018-02-03] MEDS: ATORVASTATIN 10 MG TAB PO SCH (13:12)
[2018-02-03] MEDS: ACETAMINOPHEN 500 MG TAB PO PRN ×2 (13:12→18:26)
[2018-02-03] MEDS: ENOXAPARIN 30 MG/0.3 ML SQ SCH (16:53)
[2018-02-03] MEDS: ASPIRIN EC 81 MG TAB PO SCH (18:26)
[2018-02-03] MEDS: ATENOLOL 50 MG TAB PO SCH (18:27)
[2018-02-03] MEDS: GABAPENTIN 300 MG CAP PO SCH (20:34)
--- NOTE | 2018-02-03 21:05 | PN ---
Date of Progress Note: 02/03/2018 Subjective: The patient is seen and examined. Chart reviewed and case discussed with RN. The patie nt states that she feels better. Case discussed with Dr. Abernathy as well. Treatment plan explained . All questions answered. The patient wants Mcdaniel catheter out. Review of Systems: Negative except as above. Medications: Reviewed. Physical Examination: Vital Signs: Temperature 97, heart rate 78, blood pressure 120/60, respirations 18, O2 95% on room a ir. General: Awake, alert, oriented x3, elderly female, obese, BMI 34. CV: S1, S2. Regular rate and rhythm. Peripheral pulses present. Respiratory: Clear to auscultation bilaterally. No wheezing or stridor. No use of accessory muscle s. Gastrointestinal: Abdomen is soft, nontender, nondistended. Positive bowel sounds. Extremities: No clubbing, cyanosis, edema. Neurologic: Nonfocal. Laboratory Data: Sodium 140; potassium 2.7, recheck is 3.5; chloride 99; CO2 29; BUN 41; creatinine 2.4; glucose 111; calcium 7.4; magnesium 1.5, recheck is 2.3; albumin 2.3. WBC 7.7, H and H 11.7/35. 2, platelets 178. Assessment And Plan: A 72-year-old female with: 1.Syncopal episode likely due to acute dehydration. 2.Hypokalemia. We will replace and monitor. 3.Hypomagnesemia. We will replace and monitor. 4.Acute kidney injury. Creatinine is improving with IV fluid resuscitation. Appreciate Dr. Lawanda park's input. Continue to monitor. Avoid NSAIDs. 5.Moderate protein-calorie malnutrition. Albumin 2.3. 6.Hypertension. Blood pressure medications on hold. 7.Obesity. BUN 34.5. 8.History of liver mass. The patient states that this was diagnosed a couple of years ago. Has bee n undergoing serial imaging studies, has been told it is not cancerous, however, has not had biopsy d one. 9.The patient recommended to have followup imaging performed and possible biopsy to elucidate the et iology of this mass. 10.Hyperlipidemia. Continue statin. 11.Gastroesophageal reflux disease without esophagitis. Continue PPI. 12.Neuropathy. The patient is on SSRI and gabapentin. SA/MODL Voice ID: [id number] Report ID: [id number]
[2018-02-04] MEDS: NA CHLORIDE 0.9% 1,000 ML IV SCH ×3 (02:35→21:00)
--- NOTE | 2018-02-04 03:31 | CON ---
Date of Consultation: 02/03/2018 Reason For Consultation: Elevated BUN and creatinine, UTI. History Of Present Illness: This is a 72-year-old female with significant past medical history of hypertension, hyperlipidemia, hypothyroidism, GERD. The patient presented to the hospital that found by the family weak, dizzy, and spinning around for the last few days and so they brought her to the emergency room. In the emergency room found to be hypotension with elevated BUN and creatinine, for that reason been admitted and we have been consulted. The patient denied any nausea, any vomiting. Denied taking any nonsteroidal. No shortness of breath. The patient was started on hydration and antibiotic. Creatinine on presentation was 3.3 with GFR down to 14 with severe hypokalemia. The patient after replacement of potassium continue to be low, but creatinine trend down to 2.4, GFR up to 20. The patient feeling better. Past Medical History: 1. Hypertension. 2. Hyperlipidemia. 3. GERD. Allergies: NO KNOWN DRUG ALLERGIES. Home Medications: 1. Aspirin. 2. Atenolol. 3. Lasix. 4. Gabapentin. 5. Levothyroxine. 6. KCl. 7. Carafate. 8. Metolazone. Past Surgical History: Negative. Family History: Positive for diabetes and hypertension. Social History: Denies smoking. Denies drinking. Denies drug abuse. Review of Systems: Head and neck: Had lightheaded. GI: No nausea, no vomiting. : No polyuria, no dysuria, no hematuria. [employer]EL[employer]: No vaginal discharge. Respiratory: No shortness of breath. Cardiovascular: Has weakness and dizziness. Neuro: Dizziness. Musculoskeletal: Generalized fatigue. Endocrine: No polydipsia. Skin: No rash. Physical Examination: Vital Signs: When I saw the patient, blood pressure of 100/45, pulse of 65, afebrile. Chest: Clear to auscultation. Heart: S1, S2. Regular. Abdomen: Soft, nontender. Extremities: Trace edema. Neuro: No focal. Laboratory Data: Sodium 140, potassium 2.7, bicarb 29, BUN 41, creatinine 2.4, calcium 7.4, phosphorus 3.2, magnesium 1.5. WBC 7.7, H and H 11.7/35.2, platelet 178. Medications: Current medications the patient on its include: 1. Aspirin. 2. Lovenox. 3. Magnesium oxide. 4. Atorvastatin. 5. Gabapentin. 6. Paxil. 7. Carafate. 8. Levothyroxine. Assessment And Plan: 1. Acute kidney injury secondary to poor perfusion, toxic acute tubular necrosis, dehydration. Superimposed with Lasix. I am going to keep holding blood pressure medication. Continue the patient on hydration and we will monitor the patient. 2. Hypokalemia, hypomagnesemia. We will supplement and we will follow up. 3. Hypertension. Keep holding all blood pressure medication. 4. Sepsis. Continue current antibiotic. We will follow up. RASHAWN Voice ID: [id number] Report ID: [id number] MTDD
[2018-02-04 04:33] LABS: Absolute Lymphocytes (CBC) 1.9 K/uL (0.7-4.9); Absolute Monocytes 0.5 K/uL (0.1-1.3); Absolute Neutrophil 4.2 K/uL (1.8-8.0); Basophils % 1.1 % (0-1.3); Eosinophils % 2.9 % (0-4.4); Hematocrit 34.1 % (36.0-45.0); Lymphocytes % 27.4 % (15.3-44.8); MCH 26.4 pg (27.0-35.0); MCV 80.6 fL (80-100); MPV 9.3 fL (7.6-11.3); Monocytes % 7.8 % (3.3-12.3); RBC Red Blood Cell Count 4.23 M/uL (3.86-4.86)
[2018-02-04 05:05] LABS: Albumin 2.2 g/dL (3.4-5.0); Bilirubin Total 0.8 mg/dL (0.2-1.0); Magnesium 1.9 mg/dL (1.8-2.4); Thyroid Stimulating Hormone 0.2 uIU/mL (0.36-3.74)
[2018-02-04 05:06] LABS: Potassium 2.8 mmol/L (3.5-5.1)
[2018-02-04] MEDS: LEVOTHYROXINE SOD 0.025 MG TAB PO SCH (05:49)
[2018-02-04] MEDS: LEVOTHYROXINE SOD 0.112 MG TAB PO SCH (05:49)
[2018-02-04] MEDS ORDERED: POTASSIUM 25 MEQ EFFERV TAB PO ONE ×2 (06:00→07:00)
[2018-02-04] MEDS: SUCRALFATE 1 GM TABLET PO SCH ×3 (08:13→17:19)
--- NOTE | 2018-02-04 08:50 | RAD REPORT ---
EXAM DESCRIPTION: US - Renal Ultrasound-Complete - 02/04/2018 8:07 am CLINICAL HISTORY: ABHILASH<. COMPARISON: None. FINDINGS: The right kidney measures 11 cm with a normal echotexture. The left kidney measures 11 cm with a normal echotexture. Hydronephrosis is not seen. No gross abnormality of the bladder is seen. IMPRESSION: Unremarkable renal ultrasound.
[2018-02-04] MEDS ORDERED: LEVOTHYROXINE SOD 0.125 MG TAB PO SCH (09:00)
[2018-02-04] MEDS: ENSURE HIGH PROTEIN 237 ML CAN PO SCH ×3 (09:00→21:00)
[2018-02-04 09:06] LABS: Urine Appearance CLEAR; Urine Bilirubin NEGATIVE (NEG); Urine Blood NEGATIVE (NEG); Urine Color YELLOW; Urine Glucose NEGATIVE (NEG); Urine Protein NEGATIVE (NEG)
[2018-02-04 09:15] LABS: Urine Microscopic Reflex NO UMIC
[2018-02-04] MEDS: GABAPENTIN 300 MG CAP PO SCH ×2 (09:24→21:00)
[2018-02-04] MEDS ORDERED: POTASSIUM CL SA 10 MEQ TAB PO ONE (10:06)
[2018-02-04] MEDS ORDERED: MAGNESIUM SULFATE 1 gm IVPB 1 GM/100 ML BAG IV ONE (10:06)
[2018-02-04 10:07] LABS: Urine Protein/Creatinine Ratio 0.2 ratio (<0.15)
[2018-02-04] MEDS: ATORVASTATIN 10 MG TAB PO SCH (13:28)
[2018-02-04] MEDS: PARoxetine HCl 10 MG TAB PO SCH (13:28)
[2018-02-04] MEDS: ATENOLOL 50 MG TAB PO SCH (17:20)
[2018-02-04] MEDS: ASPIRIN EC 81 MG TAB PO SCH (17:20)
[2018-02-04] MEDS: ENOXAPARIN 30 MG/0.3 ML SQ SCH (17:20)
--- NOTE | 2018-02-04 20:01 | PN ---
Date of Progress Note: 02/04/2018 Subjective: The patient is seen and examined. Chart reviewed and case discussed RN and with Dr. Arabella west. The patient doing well. Niece at the bedside. The patient's blood pressure is still a littl e bit on the low side. The patient is asymptomatic. Review of Systems: Negative except as above. Medications: List reviewed. Physical Examination: Vital Signs: Temperature 97.6, heart rate 61, blood pressure 94/45, respirations 20, O2 97% on room air. General: Awake, alert, oriented x2. No acute distress. Elderly female, obese. BMI 36. CV: S1, S2. No murmurs. Peripheral pulses present. Respiratory: Moving air well bilaterally. No wheezing. Gastrointestinal: Abdomen is soft, nontender, nondistended. Positive bowel sounds. Extremities: No clubbing, cyanosis, edema. Neurologic: Nonfocal. Laboratory Data: Sodium 144, potassium 2.8, recheck is 3.7, chloride 106, CO2 30, BUN 32, creatinine 1.3, glucose 93, calcium 7.6, phosphorus 2, magnesium 1.9. Albumin 2.2, PTH 159, TSH 0.2. WBC 6.9, H and H 11.2, 34.1, platelets 144. Renal ultrasound shows unremarkable renal ultrasound. Assessment And Plan: A 72-year-old female with. 1.Near syncopal episode due to acute dehydration, improving. 2.Hypotension. Antihypertensives on hold. We will continue to monitor. 3.Hypokalemia, replaced, and we will continue to monitor. 4.Hypomagnesemia, replaced. Continue to monitor. 5.Acute kidney injury. Creatinine has normalized after IV fluid hydration. Appreciate Dr. Abernathy 's input. The patient counseled against using NSAIDs. 6.Protein calorie malnutrition, severe. Albumin 2.2. 7.Obesity, BMI 34.5. 8.History of liver mass, needs outpatient followup. 9.Mixed hyperlipidemia. Continue statin. 10.Gastroesophageal reflux disease without esophagitis. Continue PPI. 11.Neuropathy. Continue gabapentin. Plan: We will obtain echocardiogram to rule out CHF. The patient was on significant amount of diure tics. Renal ultrasound is normal. SA/MODL Voice ID: [id number] Report ID: [id number]
[2018-02-05] MEDS: NA CHLORIDE 0.9% 1,000 ML IV SCH ×3 (00:08→17:00)
--- NOTE | 2018-02-05 02:41 | PN ---
Date of Progress Note: 02/04/2018 Subjective: The patient was admitted with altered mental status, fall, and found to have urosepsis. Physical Examination: Vital Signs: When I saw the patient, blood pressure of 111/52, pulse of 65. Chest: Clear to auscultation. Heart: S1, S2. Systolic murmur. Abdomen: Soft, nontender. Extremities: Trace edema. Laboratory Data: H and H 11.2/34.1, sodium 144, potassium 2.8, bicarb 30, BUN 32, creatinine 1.3, ca lcium 7.6, phosphorus 2. Assessment And Plan: 1.Acute kidney injury, normal-sized kidney, secondary to poor perfusion, acute tubular necrosis, sup erimposed with toxic acute tubular necrosis. Resolved. 2.Hypertension. Status post hypotensive, back to normal, keep holding blood pressure medication. 3.The patient on massive diuresis. We will consider echocardiogram to evaluate atrial fibrillation. 4.Hypokalemia. We will continue supplement. 5.Hypophosphatemia. I will avoid supplement for today giving the patient just recover from kidney f unction. ILAN/ROSEANN Voice ID: [id number] Report ID: [id number]
[2018-02-05] MEDS: ACETAMINOPHEN 500 MG TAB PO PRN (05:29)
[2018-02-05] MEDS: LEVOTHYROXINE SOD 0.025 MG TAB PO SCH (05:30)
[2018-02-05] MEDS: LEVOTHYROXINE SOD 0.112 MG TAB PO SCH (05:30)
[2018-02-05 06:04] LABS: Absolute Lymphocytes (CBC) 1.9 K/uL (0.7-4.9); Absolute Monocytes 0.4 K/uL (0.1-1.3); Absolute Neutrophil 3.3 K/uL (1.8-8.0); Basophils % 1.4 % (0-1.3); Eosinophils % 3.7 % (0-4.4); Hematocrit 35.4 % (36.0-45.0); Lymphocytes % 31.9 % (15.3-44.8); MCH 26.3 pg (27.0-35.0); MCV 80.5 fL (80-100); MPV 9.5 fL (7.6-11.3); Monocytes % 7.2 % (3.3-12.3); RBC Red Blood Cell Count 4.39 M/uL (3.86-4.86)
[2018-02-05 06:25] LABS: Albumin 2.2 g/dL (3.4-5.0); Bilirubin Total 0.7 mg/dL (0.2-1.0); Magnesium 1.9 mg/dL (1.8-2.4); Phosphorus 1.6 mg/dL (2.5-4.9); Potassium 3.4 mmol/L (3.5-5.1); Protein, Total 5.9 g/dL (6.4-8.2)
[2018-02-05] MEDS: SUCRALFATE 1 GM TABLET PO SCH ×3 (08:25→17:37)
[2018-02-05] MEDS: ENSURE HIGH PROTEIN 237 ML CAN PO SCH ×2 (09:00→14:00)
[2018-02-05] MEDS: GABAPENTIN 300 MG CAP PO SCH (09:54)
[2018-02-05] MEDS: PARoxetine HCl 10 MG TAB PO SCH (13:59)
[2018-02-05] MEDS: ATORVASTATIN 10 MG TAB PO SCH (14:00)
[2018-02-05] MEDS ORDERED: POTASS/SODIUM PHOSPHATE 1 PKT POWD.PACK PO ONE (15:00)
[2018-02-05] MEDS ORDERED: POTASSIUM CL SA 10 MEQ TAB PO ONE (15:00)
--- NOTE | 2018-02-05 17:16 | ECHO ---
HEIGHT: 5 ft 7 in WEIGHT: 233 lb 1.6 oz DATE OF STUDY: 02/05/[address]: Devon Casarez MD 2-DIMENSIONAL: YES M.MODE: YES DOPPLER: YES COLOR FLOW: YES TDS: YES PORTABLE: DEFINITY: BUBBLE STUDY: DIAGNOSIS: DYSPNEA/ CONGESTIVE HEART FAILURE CARDIAC HISTORY: CATHERIZATION: NO SURGERY: NO PROSTHETIC VALVE: NO PACEMAKER: NO MEASUREMENTS (cm) DIASTOLIC (NORMALS) SYSTOLIC (NORMALS) IVSd 0.9 (0.6-1.2) LA Diam 4.4 (1.9-4.0) LVEF 69% LVIDd 4.2 (3.5-5.7) LVIDs 2.6 (2.0-3.5) %FS 38% LVPWd 1.0 (0.6-1.2) Ao Diam 3.3 (2.0-3.7) 2 DIMENSIONAL ASSESSMENT: RIGHT ATRIUM: NORMAL LEFT ATRIUM: DILATED RIGHT VENTRICLE: NORMAL LEFT VENTRICLE: NORMAL TRICUSPID VALVE: NORMAL MITRAL VALVE: MITRAL ANNULAR CALCIFICATION PULMONIC VALVE: NORMAL AORTIC VALVE: SCLEROSIS PERICARDIAL EFFUSION: NONE AORTIC ROOT: NORMAL LEFT VENTRICULAR WALL MOTION: NORMAL DOPPLER/COLOR FLOW: NORMAL COMMENTS: LEFT ATRIAL ENLARGMENT. NORMAL LEFT VENTRICULAR SIZE AND FUNCTION. MITRAL ANNULAR CALCIFICATION. AORTIC SCLEROSIS. TECHNOLOGIST: MADONNA ARTHUR
[2018-02-05] MEDS: ENOXAPARIN 30 MG/0.3 ML SQ SCH (17:36)
[2018-02-05] MEDS: ATENOLOL 50 MG TAB PO SCH (17:37)
[2018-02-05] MEDS: ASPIRIN EC 81 MG TAB PO SCH (17:38)
--- NOTE | 2018-02-06 02:20 | PN ---
Date of Progress Note: 02/05/2018 Chief Complaint: Acute kidney injury. History Of Present Illness: Acute kidney injury, moderately severe. BUN was up to 43, creatinine went up to 3.30. The patient has moderately severe nonoliguric acute kidney injury associated with prerenal azotemia. Renal function has improved over the last few days and creatinine today improved to 0.8, BUN 17. The patient was found to have hypokalemia, yesterday potassium was 2.8. There was no evidence of metabolic acidosis. Bicarbonate was 30. The patient received replacement for hypokalemia and potassium level improved to 3.4 today and 3.7. Review of Systems: The patient denies fever or chills. Physical Examination: Lungs: Clear to auscultation bilaterally. Heart: S1, S2. Abdomen: Soft, benign. Extremities: No edema. Impression And Plan: 1. Acute kidney injury. Renal ultrasound showed normal-sized kidneys. The patient developed acute kidney injury secondary to prerenal azotemia with mild nonoliguric acute tubular necrosis. Renal function has improved to baseline. Electrolyte abnormalities were treated with replacement. 2. Hypertension. Continue to hold medication if systolic blood pressure is below 110. 3. The patient had echocardiogram done and Cardiology consultation was obtained to manage atrial fibrillation. 4. Hypokalemia and hypophosphatemia. The patient is receiving replacement. Monitor electrolytes closely. JOHANA/ROSEANN Voice ID: [id number] Report ID: [id number] NAFISA
--- NOTE | 2018-02-06 12:18 | DS ---
Date of Discharge: 02/05/2018 Consultants: Dr. Abernathy with Nephrology. Admitting Diagnoses: 1.Acute kidney injury. 2.Near syncopal episode. 3.Hypokalemia. 4.Hypomagnesemia. 5.Hypoalbuminemia due to protein-calorie malnutrition. Discharge Diagnoses: 1.Near syncopal episode. 2.Hypertension. 3.Dehydration. 4.Hypokalemia, replaced. 5.Hypomagnesemia, replaced. 6.Acute kidney injury. Creatinine normalized. 7.Severe protein-calorie malnutrition. Albumin 2.2. 8.Obesity, BMI 34.5. 9.History of liver mass. The patient will need outpatient followup. 10.Mixed hyperlipidemia. 11.Gastroesophageal reflux disease without esophagitis. 12.Neuropathy, on gabapentin. 13.Acute tubular necrosis, resolved. Hospital Course: The patient is a 72-year-old female, comes in the hospital with hypotension and lig htheadedness. The patient was found to have multiple electrolyte abnormalities as well as elevated c reatinine and kidney failure. Admission creatinine was 3.3. This was thought to be due to hypoperfu marla, acute toxic tubular necrosis. The patient was started on IV fluids, resuscitated. Her blood p ressure improved. Her diuretics were held including Lasix and metolazone. The patient's blood press ure improved, initially was 80s over 40s and now in the low 100s to 50s-60s diastolic. The patient d id well. Her kidney function recovered. She was counseled against the use of NSAIDs. Dr. Abernathy with Nephrology was consulted. Renal ultrasound was done, which did not show any acute abnormalities . Head CT scan was done due to some confusion and the near syncopal episode. There were no intracra nial abnormalities. 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 The patient was then cleared for discharge. Echocardi ogram was also ordered. The patient was then discharged home with home health. Condition: Fair. Activity: Fall precautions, ambulate with assist. Diet: Heart healthy. Followup: Return to ER for worsening condition. Follow up with primary care physician in 2-3 days. Follow up with silver recovery operator, Dr. Abernathy in 2 weeks. Total time spent discharging the patient was 33 minutes. Medications: As per medication reconciliation list. Physical Examination: General: Awake, alert, oriented, no acute distress. CV: S1, S2. No murmurs. Respiratory: Moving air well bilaterally. Abdomen: Soft, nontender, nondistended. Positive bowel sounds. Extremities: No clubbing, cyanosis, edema. Neurologic: Nonfocal. SA/MODL Voice ID: [id number] Report ID: [id number]
== END 2018-02-05 18:43 | disposition home health service (06) | DRG 682 ==
LOC: EDBD 16:05 → ER 16:05 → ERHOLD 18:47 → 4TH 20:39
PROVIDERS: ADMIT Family Medicine; ATTEND Hospitalist
DX: N17.0 Acute kidney failure with tubular necrosis (principal); E43 Unspecified severe protein-calorie malnutrition; I95.9 Hypotension, unspecified; E86.0 Dehydration; E87.6 Hypokalemia; E83.42 Hypomagnesemia; Z68.36 Body mass index [BMI] 36.0-36.9, adult; E78.2 Mixed hyperlipidemia; K21.9 Gastro-esophageal reflux disease without esophagitis; G62.9 Polyneuropathy, unspecified; I10 Essential (primary) hypertension; R16.0 Hepatomegaly, not elsewhere classified; E83.39 Other disorders of phosphorus metabolism
CPT/HCPCS: 36415; 51702; 70450; 71045; 76770; 80048; 80053; 80069; 80076; 81003; 82550; 82570; 83735; 83880; 83970; 84100; 84132; 84156; 84443; 84484; 85025; 85610; 93005; 93306; 94760; 96361; 96365; 96366; 97163; 99285; J1650; J3475; J7030

== ENCOUNTER 2018-03-02 12:48 | Emergency (ER) | payer OTHER ==
--- OUTSIDE RECORDS SUMMARY | 2018-03-02 13:06 | XMS REPORT | Clinical Summary ---
:1945 Author Organization [facility] Address [address] [place] [address] Phone Care Team Providers Name Role Phone [...] 01/09/2018 Documentation Transplant Shira Siddiqi MA after 03/01/2017 Family History Medical History Relation Name Comments [...] Treatment Date Type Specialty Care Team Description 03/05/2018 Office Visit Transplant Hepatology Resource, [facility] Hepatobiliary Surgery Health Maintenance Due Date Last Done Comments INFLUENZA VACCINE 03/09/2018 Results MRI abdomen with and without contrast (01/23/2018 9:23 AM) Specimen Performing Laboratory [facility] Narrative FINAL REPORT MRI of the abdomen [...] MD Report Verified Date/Time:01/23/2018 10:16:08 Reading Location: [address] Radiology Reading Room Procedure Note Interface, [...] Report Verified Date/Time: 01/23/2018 10:16:08 Reading Location: [address] Radiology Reading Room Hepatitis A antibody, IgG (01/15/2018 10:58 AM) Component Value Ref Range Hep A IgG Nonreactive Nonreactive Specimen Performing Laboratory Blood [facility] [address] [address] CBC with platelet count + automated diff [...] - 1 % Specimen Performing Laboratory Blood [address] [address] Hepatitis A antibody, IgM (01/15/2018 10:58 AM) Component Value Ref Range Hep A IgM Nonreactive Nonreactive Specimen Performing Laboratory Blood [address] [address] Carbohydrate antigen 19-9 (CA 19-9) (01/15/2018 10:58 AM) Component Value Ref Range CA 19-9 208 (H) <34 U/mL Comment: This test was performed using the Siemens ([employer]) Chemiluminescent method. Values obtained from different assay methods cannot be used interchangeably. CA19-9 levels, regardless of value, should not be interpreted as absolute evidence of the presence or absence of disease. Specimen Performing Laboratory Blood [facility] [address] [address] Narrative Performing Lab [facility] [address] [address] Benjie Vazquez MD, PhD, REINIER Alpha fetoprotein (AFP), tumor marker (01/15/2018 10:58 AM) Component Value Ref Range Alpha-Fetoprotein 3.4 <10.0 ng/mL Specimen Performing Laboratory Blood [address] [address] CBC with platelet count + automated diff (01/15/2018 10:58 AM) Specimen Performing Laboratory Blood [facility] Narrative The following orders were created for panel order CBC with platelet count + automated diff. Procedure Abnormality Status --------- ------ CBC with platelet count ...[[id number]]AbnormalFinal result Please view results for these tests on the individual orders. Anti-Nuclear Antibody (MESSI) (01/15/2018 10:58 AM) Component Value Ref Range MESSI Negative Negative Specimen Performing Laboratory [address] [address] Narrative Test performed by IFA method. Test performed by IFA method. Ferritin (01/15/2018 10:58 AM) Component Value Ref Range Ferritin 33 5 - 275 ng/mL Specimen Performing Laboratory Blood [address] [address] Carcinoembryonic Antigen (CEA) (01/15/2018 10:58 AM) Component Value Ref Range CEA, SERUM 1.6 0.0 - 5.0 ng/mL Specimen Performing Laboratory [address] [address] Iron, TIBC, % sat. (without ferritin) (01/15/2018 10:57 AM) Component Value Ref Range Iron 41 40 - 160 ug/dL TIBC 358 250 - 450 ug/dL Iron % Saturation 11 (L) 20 - 55 % Specimen Performing Laboratory Blood [address] [address] Hepatitis C antibody (01/15/2018 10:57 AM) Component Value Ref Range Hepatitis C Ab Nonreactive Nonreactive Specimen Performing Laboratory Blood [address] [address] Actin (Smooth Muscle) Antibody, IgG (01/15/2018 10:57 [...] Specimen Performing Laboratory Blood [facility] [address] [address] Narrative Performing Lab [facility] [address] [address] Benjie Vazquez MD, PhD, REINIER Hepatitis B core antibody, total (01/15/2018 10:57 AM) Component Value Ref Range Hep B Core Total Ab Nonreactive Nonreactive Specimen Performing Laboratory Blood [address] [address] Hepatitis B surface antibody (01/15/2018 10:57 AM) Component Value Ref Range Hep B S Ab <8.0 <8.0 mIU/mL Specimen Performing Laboratory Blood [address] [address] Hepatitis B surface antigen (01/15/2018 10:57 AM) Component Value Ref Range hepatitis B Surface Ag Nonreactive Nonreactive Specimen Performing Laboratory Blood [address] [address] Prothrombin time/INR (01/15/2018 10:57 AM) Component Value Ref Range Protime 16.8 (H) 11.7 - 14.7 seconds INR 1.4 <=5.9 Specimen Performing Laboratory [address] [address] Narrative RECOMMENDED COUMADIN/WARFARIN INR THERAPY RANGES STANDARD DOSE: 2.0 - 3.0 Includes: PROPHYLAXIS for venous thrombosis, systemic embolization; TREATMENT for venous thrombosis and/or pulmonary embolus. HIGH RISK: Target INR is 2.5-3.5 for patients with mechanical heart valves. Cancer Antigen 125 (CA 125) (01/15/2018 10:57 AM) Component Value Ref Range CA 125 221 (H) <35 U/mL Comment: This test was performed using the [employer] Chemiluminescent method. Values obtained from different assay methods cannot be used interchangeably. CA 125 levels, regardless of value, should not be interpreted as absolute evidence of the presence or absence of disease. Specimen Performing Laboratory Blood [facility] [place] [id number] [place] [address] Narrative Performing Lab [facility] [address] [address] Benjie Vazquez MD, PhD, REINIER Gamma Glutamyl Transferase (GGT) (01/15/2018 10:57 AM) Component Value Ref Range GGT 130 (H) 9 - 64 U/L Specimen Performing Laboratory Blood [address] [address] Hepatic function panel (01/15/2018 10:57 AM) Component Value Ref Range Protein, Total 7.7 6.0 - 8.3 gm/dL Albumin 3.5 3.5 - 5.0 g/dL Total Bilirubin 1.2 0.2 - 1.2 mg/dL Bilirubin, Direct 0.6 (H) 0.1 - 0.5 mg/dL Alkaline Phosphatase 136 40 - 150 U/L AST 46 (H) 5 - 34 U/L ALT 18 6 - 55 U/L Specimen Performing Laboratory Blood [address] [address] Basic Metabolic Panel (01/15/2018 10:57 AM) Component [...] FOR DIALYSIS PATIENTS. Specimen Performing Laboratory Blood [address] [address] after 03/01/2017
--- OUTSIDE RECORDS SUMMARY | 2018-03-02 13:08 | XMS REPORT ---
:1945 [facility] Address [address] [place] [address] Care Team Providers Name Role Phone ABRAHAM DE LEÓN Unavailable Unavailable CRISTOBAL MCCALLUM Unavailable Unavailable MARIA TERESA MACIAS Unavailable Unavailable Problems This patient has no known problems. Allergies, Adverse Reactions, Alerts This patient has no known allergies or adverse reactions. Medications This patient has no known medications. Results Test Description Test Time Test Comments Text Results Atomic Results Result Comments , ABDOMEN, 2018-01-23 Referring: FINAL REPORT PATIENT ID: WITH 10:16:00 Cristobal Mccallum [id number] MRI of the abdomen (Old/new with and without contrast pt.)Include Clinical History: right lobe Abdominal cystic liver mass [facility] mult[facility] MR images of [...] post cholecystectomy. Mild CBD dilation. Signed: Elli Venegasort Verified Date/Time: 01/23/2018 10:16:08 Reading Location: [address] Radiology Reading Room -NUCLEAR ANTIBODY (MESSI) 2018-01-16 10:59:00 Test Item Value Reference Range Comments ANTI-NUCLEAR ANTIBODY (MESSI) (BEAKER) (test hkcl=114) Negative Negative Test performed by IFA method.Test performed by IFA method.HEPATITIS A ANTIBODY, [id number] 15:33:00 Test Item Value Reference Range Comments HEPATITIS A IGM ANTIBODY (BEAKER) (test Nonreactive Nonreactive eptv=900) HEPATITIS A ANTIBODY, [id number] 15:33:00 Test Item Value Reference Range Comments HEPATITIS A IGG ANTIBODY (BEAKER) (test Nonreactive Nonreactive cgnn=9326) HEPATITIS B SURFACE [id number] 15:33:00 Test Item Value Reference Range Comments HEPATITIS B SURFACE ANTIBODY (BEAKER) (test < mIU/mL <8.0 hwxp=722) HEPATITIS B SURFACE [id number] 15:32:00 Test Item Value Reference Range Comments HEPATITIS B SURFACE ANTIGEN (2) (BEAKER) (test Nonreactive Nonreactive qxnx=2865) HEPATITIS C [id number] 15:32:00 Test Item Value Reference Range Comments HEPATITIS C ANTIBODY (BEAKER) (test cjfe=559) Nonreactive Nonreactive HEPATITIS B CORE ANTIBODY, [id number] 15:32:00 Test Item Value Reference Range Comments HEPATITIS B CORE TOTAL ANTIBODY (BEAKER) (test Nonreactive Nonreactive kxxy=476) CARCINOEMBRYONIC ANTIGEN (CEA)2018-01-15 13:34:00 Test Item Value Reference Range Comments CARCINOEMBRYONIC ANTIGEN (BEAKER) (test vacb=650) 1.6 ng/mL 0.0-5.0 [id number] 13:34:00 Test Item Value Reference Range Comments FERRITIN (BEAKER) (test bzql=803) 33 ng/mL 5-275 ALPHA FETOPROTEIN (AFP), TUMOR [id number] 13:34:00 Test Item Value Reference Range Comments ALPHA-FETOPROTEIN (BEAKER) (test qikx=5491) 3.4 ng/mL <10.0 HEPATIC FUNCTION [id number] 13:14:00 Test Item Value Reference Range Comments TOTAL PROTEIN (BEAKER) (test ounh=667) 7.7 gm/dL 6.0-8.3 ALBUMIN (BEAKER) (test tzbj=8504) 3.5 g/dL 3.5-5.0 BILIRUBIN TOTAL (BEAKER) (test udko=895) 1.2 mg/dL 0.2-1.2 BILIRUBIN DIRECT (BEAKER) (test jtlg=468) 0.6 mg/dL 0.1-0.5 ALKALINE PHOSPHATASE (BEAKER) (test geax=487) 136 U/L 40-150 AST (SGOT) (BEAKER) (test ctpj=118) 46 U/L 5-34 ALT (SGPT) (BEAKER) (test ghvj=524) 18 U/L 6-55 BASIC METABOLIC [id number] 13:14:00 Test Item Value Reference Range Comments SODIUM (BEAKER) (test 142 meq/L 136-145 dpjh=547) POTASSIUM (BEAKER) (test 3.5 meq/L 3.5-5.1 aimh=038) CHLORIDE (BEAKER) (test 99 meq/L 98-107 dwoh=383) CO2 (BEAKER) (test 31 meq/L 22-29 awpu=704) BLOOD UREA NITROGEN 14 mg/dL 7-21 (BEAKER) (test epxf=888) CREATININE (BEAKER) (test 0.96 mg/dL 0.57-1.25 hwiv=942) GLUCOSE RANDOM (BEAKER) 161 mg/dL 70-105 (test baid=751) CALCIUM (BEAKER) (test 9.0 mg/dL 8.4-10.2 vkuy=606) EGFR (BEAKER) (test 57 mL/min/1.73 sq m ESTIMATED GFR IS NOT ezip=1070) ACCURATE CREATININE CLEARANCE IN PREDICTING GLOMERULAR FILTRATION RATE. ESTIMATED GFR IS NOT APPLICABLE FOR DIALYSIS PATIENTS. GAMMA GLUTAMYL TRANSFERASE (GGT)2018-01-15 13:14:00 Test Item Value Reference Range Comments GAMMA GLUTAMYL TRANSFERASE (BEAKER) (test egon=869) 130 U/L 9-64 IRON, TIBC, % SAT. (WITHOUT FERRITIN)2018-01-15 13:12:00 Test Item Value Reference Range Comments IRON (BEAKER) (test qslt=298) 41 ug/dL 40-160 TOTAL IRON BINDING CAPACITY (BEAKER) (test 358 ug/dL 250-450 yoda=658) IRON % SATURATION (2) (BEAKER) (test jqsd=8849) 11 % 20-55 CBC W/PLT COUNT & AUTO [id number] 13:00:00 Test Item Value Reference Range Comments WHITE BLOOD CELL COUNT (BEAKER) (test ynrk=734) 7.3 K/ L 3.5-10.5 RED BLOOD CELL COUNT (BEAKER) (test afwp=898) 5.24 M/ L 3.93-5.22 HEMOGLOBIN (BEAKER) (test sazr=964) 13.2 GM/DL 11.2-15.7 HEMATOCRIT (BEAKER) (test bcco=459) 44.8 % 34.1-44.9 MEAN CORPUSCULAR VOLUME (BEAKER) (test sbdg=815) 85.5 fL 79.4-94.8 MEAN CORPUSCULAR HEMOGLOBIN (BEAKER) (test 25.2 pg 25.6-32.2 spdc=697) MEAN CORPUSCULAR HEMOGLOBIN CONC (BEAKER) (test 29.5 GM/DL 32.2-35.5 fiif=931) RED CELL DISTRIBUTION WIDTH (BEAKER) (test 16.3 % 11.7-14.4 dnve=497) PLATELET COUNT (BEAKER) (test owpe=068) 177 K/CU MM 150-450 MEAN PLATELET VOLUME (BEAKER) (test ibey=591) 12.4 fL 9.4-12.3 NUCLEATED RED BLOOD CELLS (BEAKER) (test 0 /100 WBC 0-0 zmol=319) NEUTROPHILS RELATIVE PERCENT (BEAKER) (test 65 % vddv=810) LYMPHOCYTES RELATIVE PERCENT (BEAKER) (test 24 % jdmc=406) MONOCYTES RELATIVE PERCENT (BEAKER) (test 7 % lpvv=496) EOSINOPHILS RELATIVE PERCENT (BEAKER) (test 2 % tunl=084) BASOPHILS RELATIVE PERCENT (BEAKER) (test 2 % ulti=674) NEUTROPHILS ABSOLUTE COUNT (BEAKER) (test 4.78 K/ L 1.56-6.13 zgac=667) LYMPHOCYTES ABSOLUTE COUNT (BEAKER) (test 1.73 K/ L 1.18-3.74 cyis=871) MONOCYTES ABSOLUTE COUNT (BEAKER) (test 0.54 K/ L 0.24-0.36 zweh=314) EOSINOPHILS ABSOLUTE COUNT (BEAKER) (test 0.15 K/ L 0.04-0.36 yzda=938) BASOPHILS ABSOLUTE COUNT (BEAKER) (test 0.11 K/ L 0.01-0.08 uafj=543) IMMATURE GRANULOCYTES-RELATIVE PERCENT (BEAKER) 0 % 0-1 (test lozq=9518) PROTHROMBIN [id number] 12:59:00 Test Item Value Reference Range Comments PROTIME (BEAKER) (test haup=347) 16.8 seconds 11.7-14.7 INR (BEAKER) (test lpyo=931) 1.4 <=5.9 RECOMMENDED COUMADIN/WARFARIN INR THERAPY RANGESSTANDARD DOSE: 2.0 - 3.0 Includes: PROPHYLAXIS forvenous thrombosis, systemic embolization; TREATMENT for venous thrombosis and/or pulmonary embolus.HIGH RISK: Target INR is 2.5-3.5 for patients with mechanical heart valves.CULTURE, [id number] 05:41: 00Specimen: Urine SpecimensCollected: 12/30/2017 14:32 Status: [...] Tigecycline <=0.12 S Vancomycin 1 SURINALYSIS WITH [id number] 15:15:00 Test Item Value Reference Range Comments Color (test code=UCOLR) Yellow Clarity (test code=UCLAR) CLEAR Glucose (test code=UGLUC) NEGATIVE NEGATIVE Bilirubin (test code=UBILI) SMALL NEGATIVE Ketones (test code=UKET) NEGATIVE NEGATIVE Specific [place] (test code=USPGR) 1.025 1.005-1.030 Blood (test code=UBLD) TRACE-LYSED NEGATIVE PH (test code=UPH) 6.0 4.5-8.0 Protein (test code=UPROT) TRACE NEGATIVE Urobilinogen (test code=U UROB) 1.0 >0.2 Nitrite (test code=UNITR) NEGATIVE NEGATIVE Leukocyte Esterase (test code=ULEUK) NEGATIVE NEGATIVE WBC (test code=WBCUR) 20-30 0-5 Epithial Cells (test code=U EPI) 0-5 0-10 Bacteria (test code=UBACT) 2+ None Seen,Trace [id number] 15:03:00 Test Item Value Reference Range Comments [...] mL/min/1.73m\\S\\2 EGFR if Non- >60 Estimated Glomerular Spanish (test mL/min/1.73m\\S\\2 Filtration Rate (eGFR) code=EGFRNA) Reference [...] and management of chronic kidney failure. CULTURE, [id number] 08:45:00Specimen: BloodCollected: 11/28/2017 23:11 Status: Final Last Updated: 12/04/2017 08:38 Culture Result (Final) (Final ) No Growth After 5 DaysCULTURE, [id number] 08:41:00Specimen: BloodCollected: 11/28/2017 23:11 Status: Final Last Updated: 12/04/2017 08: 38 Culture Result (Final) (Final) No Growth After 5 DaysCULTURE, [id number] 06:21:00Specimen: Urine SpecimensCollected: 11/28/2017 16:22 Status: [...] <=1 S Trimeth/Sulfa <=20 S ESBL Positive [id number] 05:36:00 Test Item Value Reference Range [...] mL/min/1.73m\\S\\2 EGFR if Non- >60 Estimated Glomerular Spanish (test mL/min/1.73m\\S\\2 Filtration Rate (eGFR) code=EGFRNA) Reference [...] of chronic kidney failure. CBC WITH AUTO [id number] 05:28:00 Test Item Value Reference Range Comments [...] 1.0-3.0 IG% (test code=IG%) 0.3 % 0.0-0.4 [id number] 06:44:00 Test Item Value Reference Range Comments [...] mL/min/1.73m\\S\\2 EGFR if Non- >60 Estimated Glomerular Spanish (test mL/min/1.73m\\S\\2 Filtration Rate (eGFR) code=EGFRNA) Reference Intervals Decision Points for 18 years and older and average body mass: >=60 Does not exclude kidney disease. 30 - 59 Suggests moderate chronic kidney disease and indicates the need for further investigation including assessment of proteinuria and cardiovascular factors. < 30 Usually indicates a need for referral for assessment and management of chronic kidney failure. [id number] 15:54:00 Test Item Value Reference Range Comments Potassium (test code=K) 4.2 mmol/l 3.5-5.0 [id number] 06:19:00 Test Item Value Reference Range Comments [...] mL/min/1.73m\\S\\2 EGFR if Non- >60 Estimated Glomerular Spanish (test mL/min/1.73m\\S\\2 Filtration Rate (eGFR) code=EGFRNA) Reference [...] of chronic kidney failure. CBC WITH AUTO [id number] 05:53:00 Test Item Value Reference Range Comments [...] 1.0-3.0 IG% (test code=IG%) 0.2 % 0.0-0.4 [id number] 10:18:00 Test Item Value Reference Range Comments Potassium (test code=K) 4.0 mmol/l 3.5-5.0 [id number] 05:50:00 Test Item Value Reference Range Comments [...] mL/min/1.73m\\S\\2 EGFR if Non- >60 Estimated Glomerular Spanish (test mL/min/1.73m\\S\\2 Filtration Rate (eGFR) code=EGFRNA) Reference [...] of chronic kidney failure. CBC WITH AUTO [id number] 05:30:00 Test Item Value Reference Range Comments [...] code=IG%) 0.2 % 0.0-0.4 HEPATITIS PANEL (AMA 37401)2017-11-30 14:08:00 Test Item Value Reference Range Comments [...] Indirect Bilirubin (test code=IBIL) 0.4 mg/dl 0.0-1.1 [id number] 08:39:00 Test Item Value Reference Range Comments Potassium (test code=K) 3.9 mmol/l 3.5-5.0 [id number] 02:39:00 Test Item Value Reference Range Comments Potassium (test code=K) 3.8 mmol/l 3.5-5.0 [id number] 19:48:00 Test Item Value Reference Range Comments Potassium (test code=K) 3.4 mmol/l 3.5-5.0 4 hour post [id number] 14:17:00 Test Item Value Reference Range Comments Potassium (test code=K) 3.0 mmol/l 3.5-5.0 [id number] 03:25:00 Test Item Value Reference Range Comments [...] mL/min/1.73m\\S\\2 EGFR if Non- 58 Estimated Glomerular Spanish (test mL/min/1.73m\\S\\2 Filtration Rate (eGFR) code=EGFRNA) Reference [...] values were called to JAREK MUNGUIARN/MS@0325 by [id number] on 2017 03:25 AM. Resultswere read back by JAREK MUNGUIARN/MS@0325.[id number] -06-23 03:22:00 Test Item Value Reference Range Comments Magnesium (test code=MG) 1.4 mg/dl 1.6-2.3 CBC WITH AUTO [id number] 03:05:00 Test Item Value Reference Range Comments [...] (test code=IG%) 0.1 % 0.0-0.4 CT ABDOMEN/PELVIS [id number] 17:36:10EXAM: CT Abdomen and Pelvis WITH contrastINDICATION: lower abd [id number]: 12/05/2016TECHNIQUE: Abdomen and pelvis were scanned utilizing [...] By: Adithya CHAPMAN: 11/28/2017 17 :36URINALYSIS WITH [id number] 16:11:00 Test Item Value Reference Range Comments Color (test code=UCOLR) YELLOW Clarity (test code=UCLAR) SL CLOUDY Glucose (test code=UGLUC) NEGATIVE NEGATIVE Bilirubin (test code=UBILI) SMALL NEGATIVE Ketones (test code=UKET) NEGATIVE NEGATIVE Specific [place] (test code=USPGR) 1.015 1.005-1.030 Blood (test code=UBLD) [...] (test code=URCRYS) Trace Amorphous Sediment None Seen [id number] 16:04:00 Test Item Value Reference Range Comments [...] mL/min/1.73m\\S\\2 EGFR if Non- 52 Estimated Glomerular Spanish (test mL/min/1.73m\\S\\2 Filtration Rate (eGFR) code=EGFRNA) Reference [...] Critical values were called to Loly/ER by [id number] on 11/28/2017 16:04 PM. Results were not read back.AMYLASE, [id number] 16:04:00 Test Item Value Reference Range Comments Amylase (test code=AMYL) 68 U/L 12-103 LIPASE, [id number] 16:04:00 Test Item Value Reference Range Comments Lipase (test code=LIPA) 155 U/L 8-223 CBC WITH AUTO [id number] 15:46:00 Test Item Value Reference Range Comments [...] 1.0-3.0 IG% (test code=IG%) 0.2 % 0.0-0.4 [id number] 08:10:00 Test Item Value Reference Range Comments CPK (test code=CPK) 23 U/L 30-135 [id number] 08:10:00 Test Item Value Reference Range Comments CKMB (test code=CKMB) <0.22 ng/ml 0.00-2.36 TROPONIN-I [id number] 08:10:00 Test Item Value Reference Range Comments Troponin-I (test <0.012 ng/ml 0.000-0.034 The 99th Percentile URL is 0.034 code=TROP) ng/mL. The Joint Society of Cardiology/[place] College [employer] (ESC/ACC) and the National [...] first 24 hours after the clinical event. [id number] 07:52:00 Test Item Value Reference Range Comments CPK (test code=CPK) 24 U/L 30-135 [id number] 07:40:00 Test Item Value Reference Range Comments [...] mL/min/1.73m\\S\\2 EGFR if Non- >60 Estimated Glomerular Spanish (test mL/min/1.73m\\S\\2 Filtration Rate (eGFR) code=EGFRNA) Reference [...] chronic kidney failure. XR CHEST AP/PA 1 [id number] 05:15:58EXAMINATION: XR CHEST AP/PA 1 VIEWINDICATION: shortness [...] 5:09 AMDictated By: Zuri GIVENS: 11/13/2017 05:15TROPONIN-I [id number] 04:17 :00 Test Item Value Reference Range Comments Troponin-I (test <0.012 ng/ml 0.000-0.034 The 99th Percentile URL is 0.034 code=TROP) ng/mL. The Joint Society of Cardiology/[place] [employer] (ESC/ACC) and the National [...] first 24 hours after the clinical event. [id number] 04:16:00 Test Item Value Reference Range Comments CKMB (test code=CKMB) <0.22 ng/ml 0.00-2.36 PRO-BNP(B-Type Natriuretic Peptide)2017-11-13 04:12:00 Test Item Value Reference Range Comments Pro-BNP(B-Peptide) (test code=PROBNP) 71 pg/ml 0-125 CBC WITH AUTO [id number] 03:47:00 Test Item Value Reference Range Comments [...] IG% (test code=IG%) 0.2 % 0.0-0.4 CULTURE, [id number] 10:01:00Specimen: Urine SpecimensCollected: 12/20/2016 16:19 Status: Final [...] S Trimeth/Sulfa <=10 S Vancomycin 0.5SURINALYSIS WITH [id number] 17:55:00 Test Item Value Reference Range Comments Color (test code=UCOLR) Lt. Yellow Clarity (test code=UCLAR) Clear Glucose (test code=UGLUC) NEGATIVE NEGATIVE Bilirubin (test code=UBILI) NEGATIVE NEGATIVE Ketones (test code=UKET) NEGATIVE NEGATIVE Specific [place] (test code=USPGR) 1.010 1.005-1.030 Blood (test code=UBLD) [...] Seen Bacteria (test code=UBACT) 2+ None Seen,Trace [id number] 15:30:00 Test Item Value Reference Range Comments Potassium (test code=K) 5.0 mmol/l 3.5-5.0 BLOOD UREA NTIROGEN (BUN)2016-12-07 08:29:00 Test Item Value Reference Range Comments BUN (test code=BUN) 22.0 mg/dl 6.0-17.0 CREATININE, [id number] 08:29:00 Test Item Value Reference Range Comments Creatinine (test 1.2 mg/dl 0.4-1.2 code=CREA) EGFR if 57 (test code=EGFRAA) mL/min/1.73m\\S\\2 EGFR if Non- 47 Estimated Glomerular Spanish (test mL/min/1.73m\\S\\2 Filtration Rate (eGFR) code=EGFRNA) Reference Intervals Decision Points for 18 years and older and average body mass: >=60 Does not exclude kidney disease. 30 - 59 Suggests moderate chronic kidney disease and indicates the need for further investigation including assessment of proteinuria and cardiovascular factors. < 30 Usually indicates a need for referral for assessment and management of chronic kidney failure. [id number] 06:09:00 Test Item Value Reference Range Comments Potassium (test code=K) 3.3 mmol/l 3.5-5.0 [id number] 14:14:00 Test Item Value Reference Range Comments Magnesium (test code=MG) 1.5 mg/dl 1.6-2.3 [id number] 11:48:00 Test Item Value Reference Range Comments Potassium (test code=K) 2.8 mmol/l 3.5-5.0 Critical values were called to Karina Norton RN 12/06/16@1148 by [id number] on 12/06 11:48 AM. Results were read back by Karina Norton RN 12/06/16@1148.[id number] 06:11:00 Test Item Value Reference Range Comments CKMB (test code=CKMB) <0.22 ng/ml 0.00-2.36 TROPONIN-I [id number] 06:11:00 Test Item Value Reference Range Comments Troponin-I (test <0.012 ng/ml 0.000-0.034 The 99th Percentile URL is 0.034 code=TROP) ng/mL. The Joint Society of Cardiology/[place] [employer] (ESC/ACC) and the National [...] first 24 hours after the clinical event. [id number] 06:07:00 Test Item Value Reference Range Comments [...] mL/min/1.73m\\S\\2 EGFR if Non- >60 Estimated Glomerular Spanish (test mL/min/1.73m\\S\\2 Filtration Rate (eGFR) code=EGFRNA) Reference [...] were called to BIANCA PAZ RN by [id number] on 12/06/2016 06:07 AM. Results were read back by BIANCA PAZ RN.CBC WITH AUTO [id number] 05:26 :00 Test Item Value Reference Range [...] Auto (test code=NRBC_AUTO) 0 /100WBC 0-0 D-DIMER [id number] 22:33:00 Test Item Value Reference Range Comments [...] and a low probability of thromboembolic disease. [id number] 22:18:00 Test Item Value Reference Range Comments CKMB (test code=CKMB) <0.22 ng/ml 0.00-2.37 TROPONIN-I [id number] 22:18:00 Test Item Value Reference Range Comments Troponin-I (test <0.012 ng/ml 0.000-0.034 The 99th Percentile URL is 0.034 code=TROP) ng/mL. The Joint Society of Cardiology/[place] [employer] (ESC/ACC) and the National [...] first 24 hours after the clinical event. [id number] 14:13:00 Test Item Value Reference Range Comments CKMB (test code=CKMB) 0.22 ng/ml 0.00-2.37 PRO-BNP(B-Type Natriuretic Peptide)2016-12-05 14:13:00 Test Item Value Reference Range Comments Pro-BNP(B-Peptide) (test code=PROBNP) 71 pg/ml 0-125 TROPONIN-I [id number] 14:13:00 Test Item Value Reference Range Comments Troponin-I (test 0.012 ng/ml 0.000-0.034 The 99th Percentile URL is 0.034 code=TROP) ng/mL. The Joint Society of Cardiology/[place] [employer] (ESC/ACC) and the National [...] 24 hours after the clinical event. AMYLASE, [id number] 14:00:00 Test Item Value Reference Range Comments Amylase (test code=AMYL) 68 U/L 12-103 LIPASE, [id number] 14:00:00 Test Item Value Reference Range Comments Lipase (test code=LIPA) 121 U/L 8-223 [id number] 14:00:00 Test Item Value Reference Range Comments [...] mL/min/1.73m\\S\\2 EGFR if Non- >60 Estimated Glomerular Spanish (test mL/min/1.73m\\S\\2 Filtration Rate (eGFR) code=EGFRNA) Reference [...] management of chronic kidney failure. URINALYSIS WITH [id number] 13:49:00 Test Item Value Reference Range Comments Color (test code=UCOLR) Lt. Yellow Clarity (test code=UCLAR) CLEAR Glucose (test code=UGLUC) NEGATIVE NEGATIVE Bilirubin (test code=UBILI) NEGATIVE NEGATIVE Ketones (test code=UKET) NEGATIVE NEGATIVE Specific [place] (test code=USPGR) <=1.005 1.005-1.030 Blood (test code=UBLD) [...]
[2018-03-02 14:55] LABS: Protime INR 1.67
[2018-03-02] MEDS ORDERED: NA CHLORIDE 0.9% 1,000 ML ONE (14:57)
[2018-03-02 14:58] LABS: Absolute Lymphocytes (CBC) 1.7 K/uL (0.7-4.9); Absolute Monocytes 0.5 K/uL (0.1-1.3); Absolute Neutrophil 4.3 K/uL (1.8-8.0); Basophils % 1.2 % (0-1.3); Eosinophils % 1.4 % (0-4.4); Hematocrit 42.9 % (36.0-45.0); Lymphocytes % 24.9 % (15.3-44.8); MCH 26.9 pg (27.0-35.0); MCV 82.9 fL (80-100); MPV 9.2 fL (7.6-11.3); Monocytes % 7.6 % (3.3-12.3); RBC Red Blood Cell Count 5.18 M/uL (3.86-4.86)
[2018-03-02 15:03] LABS: ALT/SGPT 24 U/L (12-78); AST/SGOT 56 U/L (15-37); Albumin 2.5 g/dL (3.4-5.0); Alkaline Phosphatase 235 U/L (45-117); BUN Blood Urea Nitrogen 8 mg/dL (7-18); Bicarbonate 26 mmol/L (21-32); Bilirubin Direct 0.4 mg/dL (0-0.2); Bilirubin Total 0.9 mg/dL (0.2-1.0); Glucose Level 98 mg/dL (74-106); Lipase 157 U/L (73-393); Magnesium 1.6 mg/dL (1.8-2.4); NT PRO-BNP 128 pg/mL (<125); Potassium 3.6 mmol/L (3.5-5.1); Sodium Level 139 mmol/L (136-145); Troponin (Emerg Dept Use Only) < 0.02 ng/mL (0.0-0.045)
--- NOTE | 2018-03-02 15:38 | EKG ---
Test Date: 2018-03-02 Test Time: 14:04:09 Nursery Helper: NICK/S MEASUREMENT RESULTS: Intervals: Rate: 70 [place]: 156 QRSD: 102 QT: 456 QTc: 492 [place]: P: 24 [place]: 156 QRS: 26 T: 5 INTERPRETIVE STATEMENTS: Sinus rhythm with occasional premature ventricular complexes Low voltage QRS Prolonged QT Abnormal ECG Compared to ECG 02/02/2018 16:24:55 Ventricular premature complex(es) now present Low QRS voltage now present Prolonged QT interval now present Sinus bradycardia no longer present Electronically Signed On 03-02-18 15:37:50 CDT by Erasmo Rees
--- NOTE | 2018-03-02 15:55 | RAD REPORT ---
EXAM DESCRIPTION: CT - Abdomen Pelvis W Contrast - 03/02/2018 3:40 pm CLINICAL HISTORY: Abdominal pain./abdominal distention COMPARISON: None. TECHNIQUE: Computed axial tomography of the abdomen and pelvis was obtained. 100 cc Isovue-300 is ad ministered intravenously. Oral contrast was given. All CT scans are performed using dose optimization technique as appropriate and may include automated exposure control or mA/KV adjustment according to patient size. FINDINGS: A cirrhotic liver is present. Fatty infiltration is present. The density of the liver is h eterogeneous. A 4 centimeter soft tissue structure extends off of the dome of the liver. It contains calcification. Hepatic and splenic granulomata are seen. The portal vein is patent. The pancreas, adrenals and kidneys appear unremarkable. Mild abdominal lymphadenopathy is seen There is no evidence of diverticulitis Diffuse edema is present within the subcutaneous tissues. Small umbilical hernia is present. A small to moderate amount of ascites is present. Small left pleural effusion is seen. Tiny right pleural effusion is noted. IMPRESSION: Cirrhosis with small to moderate amount of ascites and anasarca. 4 centimeter soft tissu e structure since off of the dome of the liver. Large vague low-density is present within the posteri or segment of the right lobe of the liver. . MRI is recommended to evaluate potential hepatic mass/ma sses
--- NOTE | 2018-03-02 16:11 | EDPHYS ---
Physician Documentation [facility] Name: Carina Bal Age: 72 yrs Sex: Female : 1945 Arrival Date: 03/02/2018 Time: 12:51 Bed 28 Private MD: ED Physician Bryant Daugherty HPI: 03/02 15:59 This 72 yrs old Female presents to ER via Wheelchair with complaints of neda Abdominal Swelling. 15:59 The patient presents with abdominal pain in the upper abdomen, in the lower abdomen, neda abdominal distention in the upper abdomen, in the lower abdomen. Onset: The symptoms/episode began/occurred 14 day(s) ago. The symptoms do not radiate. Associated signs and symptoms: none. The symptoms are described as crampy. Modifying factors: The symptoms are alleviated by nothing, the symptoms are aggravated by movement, pressure, walking. Severity of pain: At its worst the pain was mild moderate in the emergency department the pain is unchanged. The patient has not experienced similar symptoms in the past. Historical: - Allergies: 13:33 No Known Allergies; aa5 - PMHx: 13:33 acid reflux; chronic uti; fluid retention; Hyperlipidemia; Hypertension; Liver Mass; aa5 neuropathy; Thyroid problem; - PSHx: 13:33 Knee surgery; shoulder; aa5 - Immunization history:: Adult Immunizations unknown. - Social history:: Smoking status: Patient/guardian denies using tobacco. - Ebola Screening: : No symptoms or risks identified at this time. - Family history:: not pertinent. ROS: 15:59 Constitutional: Negative for fever, chills, and weight loss, Eyes: Negative for injury, neda pain, redness, and discharge, ENT: Negative for injury, pain, and discharge, Neck: Negative for injury, pain, and swelling, Cardiovascular: Negative for chest pain, palpitations, and edema, Respiratory: Negative for shortness of breath, cough, wheezing, and pleuritic chest pain, Back: Negative for injury and pain, : Negative for injury, bleeding, discharge, and swelling, MS/Extremity: Negative for injury and deformity, Neuro: Negative for headache, weakness, numbness, tingling, and seizure, Psych: Negative for depression, anxiety, suicide ideation, homicidal ideation, and hallucinations, Allergy/Immunology: Negative for hives, rash, and allergies, Endocrine: Negative for neck swelling, polydipsia, polyuria, polyphagia, and marked weight changes, Hematologic/Lymphatic: Negative for swollen nodes, abnormal bleeding, and unusual bruising. 15:59 Abdomen/GI: Positive for abdominal pain, abdominal cramps, abdominal distension, of the right upper quadrant, left upper quadrant, right lower quadrant and left lower quadrant. Exam: 15:59 Constitutional: This is a well developed, well nourished patient who is awake, alert, neda and in no acute distress. Head/Face: Normocephalic, atraumatic. Eyes: Pupils equal round and reactive to light, extra-ocular motions intact. Lids and lashes normal. Conjunctiva and sclera are non-icteric and not injected. Cornea within normal limits. Periorbital areas with no swelling, redness, or edema. ENT: Nares patent. No nasal discharge, no septal abnormalities noted. Tympanic membranes are normal and external auditory canals are clear. Oropharynx with no redness, swelling, or masses, exudates, or evidence of obstruction, uvula midline. Mucous membranes moist. Neck: Trachea midline, no thyromegaly or masses palpated, and no cervical lymphadenopathy. Supple, full range of motion without nuchal rigidity, or vertebral point tenderness. No Meningismus. Chest/axilla: Normal chest wall appearance and motion. Nontender with no deformity. No lesions are appreciated. Cardiovascular: Regular rate and rhythm with a normal S1 and S2. No gallops, murmurs, or rubs. Normal PMI, no JVD. No pulse deficits. Respiratory: Lungs have equal breath sounds bilaterally, clear to auscultation and percussion. No rales, rhonchi or wheezes noted. No increased work of breathing, no retractions or nasal flaring. Back: No spinal tenderness. No costovertebral tenderness. Full range of motion. MS/ Extremity: Pulses equal, no cyanosis. Neurovascular intact. Full, normal range of motion. Neuro: Awake and alert, GCS 15, oriented to person, place, time, and situation. Cranial nerves II-XII grossly intact. Motor strength 5/5 in all extremities. Sensory grossly intact. Cerebellar exam normal. Normal gait. Psych: Awake, alert, with orientation to person, place and time. Behavior, mood, and affect are within normal limits. 15:59 Abdomen/GI: Inspection: distension, Bowel sounds: normal, Palpation: moderate abdominal tenderness, in the right upper quadrant, left upper quadrant, right lower quadrant and left lower quadrant, Liver: no appreciated palpable abnormalities, Hernia: not appreciated. Vital Signs: 13:34 BP 126 / 66; Pulse 72; Resp 18 S; Temp 98.2(TE); Pulse Ox 95% on R/A; Weight 99.79 kg aa5 (R); Height 5 ft. 7 in. (170.18 cm) (R); Pain 6/10; 15:10 BP 126 / 73; Pulse 72; Resp 18; Pulse Ox 96% on R/A; dm5 15:25 BP 121 / 66; Pulse 72; Resp 18; Pulse Ox 100% ; tl3 17:18 Pulse 77; Resp 18; Pulse Ox 97% on R/A; tl3 13:34 Body Mass Index 34.46 (99.79 kg, 170.18 cm) aa5 MDM: 13:37 Patient medically screened. [facility] 16:28 Data reviewed: vital signs, nurses notes, old medical records, lab test result(s), CBC, [facility] electrolytes, hepatic panel, urinalysis, EKG, radiologic studies. 03/02 13:37 Order name: Basic Metabolic Panel; Complete Time: 16:05 [facility] 03/02 13:37 Order name: CBC with Diff; Complete Time: 16: [facility] 03/02 13:37 Order name: LFT's; Complete Time: 16: [facility] 03/02 13:37 Order name: Magnesium; Complete Time: 16: [facility] 03/02 13:37 Order name: NT PRO-BNP; Complete Time: 16: [facility] 03/02 13:37 Order name: PT-INR; Complete Time: 16: [facility] 03/02 13:37 Order name: Troponin (emerg Dept Use Only); Complete Time: 16:05 [facility] 03/02 13:37 Order name: XRAY Chest (1 view) [facility] 03/02 13:37 Order name: Lipase; Complete Time: 16:05 [facility] 03/02 13:37 Order name: AMMONIA; Complete Time: 16:05 [facility] 03/02 13:37 Order name: CT Abd/Pelvis - W/Contrast; Complete Time: 16:05 [facility] 03/02 13:37 Order name: EKG; Complete Time: 13:38 [facility] 03/02 13:37 Order name: Cardiac monitoring; Complete Time: 14:14 [facility] 03/02 13:37 Order name: EKG - Nurse/Tech; Complete Time: 14:15 [facility] 03/02 13:37 Order name: IV Saline Lock; Complete Time: 14:15 [facility] 03/02 13:37 Order name: Labs collected and sent; Complete Time: 14:15 [facility] 03/02 13:37 Order name: O2 Per Protocol; Complete Time: 14:15 [facility] 03/02 13:37 Order name: O2 Sat Monitoring; Complete Time: 14:15 [facility] Administered Medications: 15:11 Drug: NS 0.9% 1000 ml Route: IV; Rate: 75 ml/hr; Site: right antecubital; Delivery: dm5 Primary tubing; 19:31 Follow up: IV Status: Completed infusion; IV Intake: 800ml tl3 16:55 Drug: Magnesium Sulfate 1 grams Route: IVPB; Infused Over: 1 hrs; Site: right tl3 antecubital; Delivery: Primary tubing; 18:33 Follow up: IV Status: Completed infusion; IV Intake: 100ml tl3 17:17 Drug: ProTONIX 40 mg Route: IVP; Infused Over: 3 mins; Site: right antecubital; tl3 17:32 Follow up: Response: No adverse reaction tl3 17:17 Drug: Rocephin - (cefTRIAXone) 1 grams Route: IVPB; Infused Over: 5 mins; Site: right tl3 antecubital; Delivery: Primary tubing; 17:31 Follow up: IV Status: Completed infusion; IV Intake: 20ml tl3 Disposition: 03/02/18 16:10 Transfer ordered to [facility]. Diagnosis are Abdominal tenderness, Ascites, Hypomagnesemia, Unspecified cirrhosis of liver, Obesity, unspecified. - Reason for transfer: Higher level of care. - Accepting physician is [facility]...liver team. - Condition is Fair. - Problem is new. - Symptoms have improved. Signatures: Dispatcher [employer] Alexandria Lopez, HEIDI RN Bryant Ramirez MD MD cha Williams, Irene RN HEIDI iw Socorro Morrow RN RN aa5 Cristy Quach RN RN tl3 Corrections: (The following items were deleted from the chart) 19:32 16:54 Labs - recollect needed ordered. iw tl3 19:34 16:10 03/02/2018 16:10 Transfer ordered to [facility]. Diagnosis is tl3 Abdominal tenderness; Ascites; Hypomagnesemia; Unspecified cirrhosis of liver; Obesity, unspecified. Reason for transfer: Higher level of care. Accepting physician is [facility]...liver team. Condition is Fair. Problem is new. Symptoms have improved. neda
--- NOTE | 2018-03-02 16:11 | ER ---
Nurse's Notes [facility] Name: Carina Bal Age: 72 yrs Sex: Female : 1945 Arrival Date: 03/02/2018 Time: 12:51 Bed 28 Private MD: Diagnosis: Abdominal tenderness;Ascites;Hypomagnesemia;Unspecified cirrhosis of liver;Obesity, unspecified Presentation: 03/02 13:32 Presenting complaint: Pt's niece reports abdominal distention x 2-3 weeks ago and aa5 decreased appetite. Reports diarrhea, denies nausea, denies vomiting. Pt reports abd pain. Transition of care: patient was not received from another setting of care. Onset of symptoms was February 2018. Risk Assessment: Do you want to hurt yourself or someone else? Patient reports no desire to harm self or others. Initial Sepsis Screen: Does the patient meet any 2 criteria? No. Patient's initial sepsis screen is negative. Does the patient have a suspected source of infection? No. Patient's initial sepsis screen is negative. Care prior to arrival: None. 13:32 Method Of Arrival: Wheelchair aa5 13:32 Acuity: GUY 3 aa5 Historical: - Allergies: 13:33 No Known Allergies; aa5 - PMHx: 13:33 acid reflux; chronic uti; fluid retention; Hyperlipidemia; Hypertension; Liver Mass; aa5 neuropathy; Thyroid problem; - PSHx: 13:33 Knee surgery; shoulder; aa5 - Immunization history:: Adult Immunizations unknown. - Social history:: Smoking status: Patient/guardian denies using tobacco. - Ebola Screening: : No symptoms or risks identified at this time. - Family history:: not pertinent. Screenin:20 Abuse screen: Denies threats or abuse. Nutritional screening: No deficits noted. tl3 Tuberculosis screening: No symptoms or risk factors identified. Fall Risk None identified. Assessment: 13:20 General: Appears uncomfortable, well groomed, well developed, well nourished, Behavior tl3 is calm, cooperative, appropriate for age. Pain: Complains of pain in abdomen. Neuro: Level of Consciousness is awake, alert, obeys commands, Oriented to person, place, time, situation, Appropriate for age. Cardiovascular: Patient's skin is warm and dry. Respiratory: Airway is patent Respiratory effort is even, unlabored, Respiratory pattern is regular, symmetrical, Breath sounds are clear bilaterally. GI: Bowel sounds present X 4 quads. hyperactive in right upper quadrant, left upper quadrant, right lower quadrant and left lower quadrant Abd is soft Abdomen is tender to palpation. GI: Reports diarrhea. : No signs and/or symptoms were reported regarding the genitourinary system. EENT: No signs and/or symptoms were reported regarding the EENT system. Derm: No signs and/or symptoms reported regarding the dermatologic system. Musculoskeletal: No signs and/or symptoms reported regarding the musculoskeletal system. 15:25 Reassessment: No changes from previously documented assessment. Patient and/or family tl3 updated on plan of care and expected duration. Pain level reassessed. Patient is alert, oriented x 3, equal unlabored respirations, skin warm/dry/pink. pt has no needs at this time. 18:30 Reassessment: Patient appears in no apparent distress at this time. No changes from tl3 previously documented assessment. Patient and/or family updated on plan of care and expected duration. Pain level reassessed. Patient is alert, oriented x 3, equal unlabored respirations, skin warm/dry/pink. Report called to Juventino Jose at [facility]. Vital Signs: 13:34 BP 126 / 66; Pulse 72; Resp 18 S; Temp 98.2(TE); Pulse Ox 95% on R/A; Weight 99.79 kg aa5 (R); Height 5 ft. 7 in. (170.18 cm) (R); Pain 6/10; 15:10 BP 126 / 73; Pulse 72; Resp 18; Pulse Ox 96% on R/A; dm5 15:25 BP 121 / 66; Pulse 72; Resp 18; Pulse Ox 100% ; tl3 17:18 Pulse 77; Resp 18; Pulse Ox 97% on R/A; tl3 13:34 Body Mass Index 34.46 (99.79 kg, 170.18 cm) aa5 ED Course: 12:51 Patient arrived in ED. mr 13:20 Patient has correct armband on for positive identification. Placed in gown. Bed in low tl3 position. Call light in reach. Side rails up X2. Adult w/ patient. nurse monitoring on. Pulse ox on. NIBP on. Warm blanket given. Pillow given. 13:20 No provider procedures requiring assistance completed. tl3 13:32 Arm band placed on. aa5 13:33 Triage completed. aa5 13:37 Bryant Daugherty MD is Attending Physician. neda 13:54 Alexandria Kim, RN is Primary Nurse. dm5 14:05 EKG done, by survey and mapping technician. reviewed by Bryant Daugherty MD. at1 14:09 CT patient finished oral contrast. aj 14:19 X-ray completed. Portable x-ray completed in exam room. Patient tolerated procedure ml well. 14:21 XRAY Chest (1 view) In Process Unspecified. EDMS 14:34 Inserted saline lock: 20 gauge in right antecubital area, using aseptic technique. dm5 Blood collected. 15:[address] via stretcher. tl3 15:41 CT Abd/Pelvis - W/Contrast In Process Unspecified. EDMS 19:33 Patient transferred, IV remains in place. tl3 Administered Medications: 15:11 Drug: NS 0.9% 1000 ml Route: IV; Rate: 75 ml/hr; Site: right antecubital; Delivery: dm5 Primary tubing; 19:31 Follow up: IV Status: Completed infusion; IV Intake: 800ml tl3 16:55 Drug: Magnesium Sulfate 1 grams Route: IVPB; Infused Over: 1 hrs; Site: right tl3 antecubital; Delivery: Primary tubing; 18:33 Follow up: IV Status: Completed infusion; IV Intake: 100ml tl3 17:17 Drug: ProTONIX 40 mg Route: IVP; Infused Over: 3 mins; Site: right antecubital; tl3 17:32 Follow up: Response: No adverse reaction tl3 17:17 Drug: Rocephin - (cefTRIAXone) 1 grams Route: IVPB; Infused Over: 5 mins; Site: right tl3 antecubital; Delivery: Primary tubing; 17:31 Follow up: IV Status: Completed infusion; IV Intake: 20ml tl3 Intake: 17:31 IV: 20ml; Total: 20ml. tl3 18:33 IV: 100ml; Total: 120ml. tl3 19:31 IV: 800ml; Total: 920ml. tl3 Outcome: 16:10 ER care complete, transfer ordered by . neda 19:33 Transferred by ground EMS to [facility]. tl3 19:33 Condition: stable 19:33 Instructed on the need for transfer. 19:34 Patient left the ED. tl3 Signatures: Dispatcher [employer] Alexandria Lopez, RN RN Susanne Varela, RN Bryant Kirk MD MD cha Rivera, Maria mr Uche, Socorro Stroud, RN RN aa5 Susanne Oglesby, acid etch operator EKG Tat1 Cristy Quach RN RN tl3
[2018-03-02] MEDS ORDERED: MAGNESIUM SULFATE 1 gm IVPB 1 GM/100 ML BAG IV ONE (16:44)
[2018-03-02] MEDS ORDERED: PANTOPRAZOLE 40 MG INJ ONE ×2 (16:44→17:16)
[2018-03-02] MEDS ORDERED: CEFTRIAXONE/SWI 1gm 1 GM/10 ML SYR ONE ×2 (16:44→17:17)
--- NOTE | 2018-03-02 17:50 | RAD REPORT ---
EXAM DESCRIPTION: [facility] Single View03/02/2018 2:21 pm CLINICAL HISTORY: Abdominal pain COMPARISON: January 2018 FINDINGS: Small pleural effusions are present. Small area of atelectasis is present the right lung b ase. Left lung appears clear The heart is normal size
== END 2018-03-02 19:34 | disposition short-term general hospital (02) ==
LOC: ER 12:48
DX: R18.8 Other ascites (principal); E83.42 Hypomagnesemia; K74.60 Unspecified cirrhosis of liver; E66.9 Obesity, unspecified; I10 Essential (primary) hypertension
CPT/HCPCS: 36415; 71045; 74177; 80048; 80076; 82140; 83690; 83735; 83880; 84484; 85025; 85610; 93005; 96361; 96365; 96366; 96375; 99285; C9113 ×2; J0696 ×2; J3475; J7030; Q9967

== ENCOUNTER 2018-04-27 16:02 | Observation (INO) | payer OTHER ==
--- OUTSIDE RECORDS SUMMARY | 2018-04-27 16:06 | XMS REPORT | Clinical Summary ---
:1945 Author Organization [facility] Address [address] [place] [address] Care Team Providers Name Role Phone Ellie Ramirez Primary Care Provider Allergies No Known Allergies Medications Medication Sig Dispensed Refills Start Date End Date Status aspirin 81 MG EC Take 81 mg by 0 Active tabletIndications: mouth daily. Liver mass, Hepatic fibrosis (HCC), Cancer screening, Elevated tumor markers DULoxetine Take 60 mg by 0 Discontinued (CYMBALTA) 60 MG mouth daily. 8 capsule meloxicam (MOBIC) Take 15 mg by 0 Discontinued 15 MG tablet mouth daily. 8 pravastatin Take 40 mg by 0 Discontinued (PRAVACHOL) 40 MG mouth daily. 8 tablet levothyroxine Take 200 mcg 0 Discontinued (SYNTHROID, by mouth 8 LEVOTHROID) 200 MCG daily. tablet atenolol (TENORMIN) Take 25 mg by 0 Discontinued 25 MG tablet mouth daily. 8 sucralfate Take 1 g by 0 Discontinued (CARAFATE) 1 gram mouth 4 (four) 8 tabletIndications: times daily. Liver mass, Hepatic fibrosis (HCC), Cancer screening, Elevated tumor markers levothyroxine Take 137 mcg 0 Discontinued (SYNTHROID, by mouth Every 8 LEVOTHROID) 137 MCG morning on an tabletIndications: empty stomach. Liver mass, Hepatic fibrosis (HCC), Cancer screening, Elevated tumor markers furosemide (LASIX) Take 40 mg by 0 Discontinued 40 MG mouth 2 (two) 8 tabletIndications: times daily. Liver mass, Hepatic fibrosis (HCC), Cancer screening, Elevated tumor markers gabapentin Take 300 mg by 0 Discontinued (NEURONTIN) 300 MG mouth 3 8 capsuleIndications: (three) times Liver mass, Hepatic daily. fibrosis (HCC), Cancer screening, Elevated tumor markers omeprazole Take 20 mg by 0 Discontinued (PRILOSEC) 20 MG mouth daily. 8 capsuleIndications: Liver mass, Hepatic fibrosis (HCC), Cancer screening, Elevated tumor markers POTASSIUM CHLORIDE Take by mouth. 0 Discontinued ORALIndications: 8 Liver mass, Hepatic fibrosis (HCC), Cancer screening, Elevated tumor markers atenolol (TENORMIN) Take 50 mg by 0 Discontinued 50 MG mouth daily. 8 tabletIndications: Liver mass, Hepatic fibrosis (HCC), Cancer screening, Elevated tumor markers PARoxetine (PAXIL) Take 10 mg by 0 Discontinued 10 MG mouth every 8 tabletIndications: morning. Liver mass, Hepatic fibrosis (HCC), Cancer screening, Elevated tumor markers acetaminophen Take 1 tablet 30 tablet 0 03/07/2018 (TYLENOL) 500 MG (500 mg total) 8 tablet by mouth every 6 (six) hours as needed for up to 10 days. traMADol (ULTRAM) Take 2 tablets 30 tablet 0 03/07/2018 Discontinued 50 mg tablet (100 mg total) 8 by mouth every 6 (six) hours as needed for up to 10 days. Max Daily Amount: 400 mg loperamide Take 1 capsule 30 capsule 0 03/07/2018 Discontinued (IMODIUM) 2 mg (2 mg total) 8 capsule by mouth 4 (four) times daily as needed for Diarrhea for up to 10 days. magnesium oxide Take 2 tablets 20 tablet 0 03/08/2018 Discontinued (MAG-OX) 400 mg (800 mg total) 8 tablet by mouth daily for 10 days. potassium chloride Take 2 tablets 10 tablet 0 03/07/2018 SA (K-DUR,KLOR-CON) (40 mEq total) 8 20 MEQ tablet by mouth daily for 5 days. furosemide (LASIX) Take 1 tablet 30 tablet 0 03/07/2018 Discontinued 40 MG (40 mg total) 8 tabletIndications: by mouth daily Liver mass, Hepatic for 30 days. fibrosis (HCC), Cancer screening, Elevated tumor markers traMADol (ULTRAM) Take 2 tablets 30 tablet 0 03/07/2018 50 mg tablet (100 mg total) 8 by mouth every 6 (six) hours as needed for up to 10 days. Max Daily Amount: 400 mg sucralfate Take 1 tablet 120 tablet 0 03/07/2018 (CARAFATE) 1 gram (1 g total) by 8 tabletIndications: mouth 4 (four) Liver mass, Hepatic times daily fibrosis (HCC), for 30 days. Cancer screening, Elevated tumor markers gabapentin Take 1 capsule 90 capsule 0 03/07/2018 (NEURONTIN) 300 MG (300 mg total) 8 capsuleIndications: by mouth 3 Liver mass, Hepatic (three) times fibrosis (HCC), daily for 30 Cancer screening, days. Elevated tumor markers loperamide Take 1 capsule 30 capsule 0 03/07/2018 (IMODIUM) 2 mg (2 mg total) 8 capsule by mouth 4 (four) times daily as needed for Diarrhea for up to 10 days. atenolol (TENORMIN) Take 1 tablet 30 tablet 0 03/07/2018 50 MG (50 mg total) 8 tabletIndications: by mouth daily Liver mass, Hepatic for 30 days. fibrosis (HCC), Cancer screening, Elevated tumor markers furosemide (LASIX) Take 1 tablet 30 tablet 0 03/07/2018 40 MG (40 mg total) 8 tabletIndications: by mouth daily Liver mass, Hepatic for 30 days. fibrosis (HCC), Cancer screening, Elevated tumor markers magnesium oxide Take 2 tablets 20 tablet 0 03/08/2018 (MAG-OX) 400 mg (800 mg total) 8 tablet by mouth daily for 10 days. omeprazole Take 1 capsule 30 capsule 0 03/07/2018 (PRILOSEC) 20 MG (20 mg total) 8 capsuleIndications: by mouth daily Liver mass, Hepatic for 30 days. fibrosis (HCC), Cancer screening, Elevated tumor markers PARoxetine (PAXIL) Take 1 tablet 30 tablet 0 03/07/2018 10 MG (10 mg total) 8 tabletIndications: by mouth every Liver mass, Hepatic morning for 30 fibrosis (HCC), days. Cancer screening, Elevated tumor markers levothyroxine Take 1 tablet 30 tablet 0 03/07/2018 (SYNTHROID, (137 mcg 8 LEVOTHROID) 137 MCG total) by tabletIndications: mouth Every Liver mass, Hepatic morning on an fibrosis (HCC), empty stomach Cancer screening, for 30 days. Elevated tumor markers Active Problems Problem Noted Date Thrombocytopenia 03/07/2018 Portal hypertension 03/07/2018 Hypokalemia 03/04/2018 Hypomagnesemia 03/04/2018 Diarrhea 03/04/2018 Hypotension 03/04/2018 Epigastric pain 03/03/2018 Abdominal pain 03/02/2018 Cirrhosis 01/15/2018 Elevated tumor markers 01/15/2018 Peripheral edema 01/15/2018 Fatty liver 01/15/2018 Liver mass 01/11/2013 Metabolic syndrome 01/11/2013 Screening for endocrine/metabolic/immunity disorders 01/11/2013 Obesity 01/11/2013 Hyperlipidemia 01/11/2013 Cancer screening 01/11/2013 Encounters Date Type Specialty Care Team Description 04/15/2018 Hospital Encounter Radiology Ruslan Mar Malignant ascites 04/10/2018 Hospital Encounter Radiology Ruslan Mar Canceled (Provider) 04/08/2018 Outside Orders [facility] Ruslan Mar Malignant ascites Scheduling MD (Primary Dx) 03/26/2018 Office Visit Transplant Ash Villalpando MD Left without seen Hepatology Resource, [facility] Hepatobiliary Surgery 03/26/2018 Documentation Transplant Sally Maciel Hepatology KEM Santacruz 03/26/2018 Abstract Hepatology Sandi Vasques, RN 03/12/2018 Telephone Hepatology Sandi Vasques, RN Appointment 03/02/2018 Hospital Encounter General Internal Neeta Villaseñor, Epigastric pain (Primary Dx); - Medicine Fatty liver; 03/07/2018 Erick Santizo Generalized abdominal pain; MD Erasmo Diarrhea of presumed infectious origin; Sallie Suarez Elevated tumor markers; MD Hector Liver mass; Nicol, Axel Breast mass, right; MD Justin Hepatic fibrosis (HCC); Cancer screening; Metabolic syndrome 02/02/2018 Abstract Hepatology Diana Silvestre MA 01/23/2018 Hospital Encounter Radiology Em Gaston Liver mass; MD Elli Hepatic fibrosis (HCC); Cancer screening; Elevated tumor markers 01/15/2018 Office Visit Transplant Ash Villalpando MD Liver mass (Primary Dx); Hepatology Em Gaston Hepatic fibrosis (HCC); MD Elli Cancer screening; Elevated tumor markers; Screening for endocrine/metabolic/immunity disorders; Peripheral edema; Fatty liver 01/09/2018 Documentation Transplant Shira Siddiqi MA after 04/26/2017 Family History Medical History Relation Name Comments Brain cancer Brother Cancer Father Heart disease Mother Heart failure Mother Cancer Sister Heart disease Sister Relation Name Status Comments Brother Brother Father Mother Sister Social History Tobacco Use Types Packs/Day Years Used Date Never Smoker Smokeless Tobacco: Never Used Alcohol Use Drinks/Week oz/Week Comments No Sex Assigned at Date Recorded Not on file Job Start Date Occupation Industry Not on file Not on file Not on file Travel History Travel Start Travel End No recent travel history available. Last Filed Vital Signs Vital Sign Reading Time Taken Blood Pressure 93/55 04/15/2018 1:48 PM [facility] Pulse 72 04/15/2018 1:48 PM [facility] Temperature 36.6 C (97.8 F) 04/15/2018 1:48 PM [facility] Respiratory Rate 18 04/15/2018 1:48 PM [facility] Oxygen Saturation 96% 04/15/2018 1:48 PM [facility] Inhaled Oxygen Concentration - - Weight 120 kg (264 lb 8.8 oz) 03/02/2018 8:45 PM CDT Height 170.2 cm (5' 7") 03/02/2018 8:45 PM CDT Body Mass Index 41.43 03/02/2018 8:45 PM CDT Plan of Treatment Date Type Specialty Care Team Description 05/08/2018 Appointment Radiology Ruslan Mar MD [address] [address] Health Maintenance Due Date Last Done Comments INFLUENZA VACCINE 03/09/2018 Procedures Procedure Name Priority Date/Time Associated Comments Diagnosis US PARACENTESIS Routine 04/15/2018 1:45 Malignant ascites Results for this PM [facility] procedure are in the results section. PLATELET COUNT STAT 04/15/2018 10:22 Results for this AM [facility] procedure are in the results section. PT/APTT STAT 04/15/2018 10:22 Results for this AM [facility] procedure are in the results section. CBC W/PLT COUNT & AUTO Routine 03/07/2018 6:01 Results for this DIFFERENTIAL AM CDT procedure are in the results section. MAGNESIUM Routine 03/07/2018 6:01 Results for this AM CDT procedure are in the results section. CBC W/PLT COUNT & AUTO Routine 03/07/2018 6:01 Results for this DIFFERENTIAL AM CDT procedure are in the results section. BASIC METABOLIC PANEL Routine 03/07/2018 6:01 Results for this (7) AM CDT procedure are in the results section. TISSUE EXAM AP Routine 03/06/2018 10:03 Results for this PM CDT procedure are in the results section. FUNGUS CULTURE + SMEAR Routine 03/06/2018 6:05 Results for this PM CDT procedure are in the results section. BODY FLUID CELL COUNT Routine 03/06/2018 6:05 Results for this WITH DIFFERENTIAL PM CDT procedure are in the results section. BODY FLUID CULTURE + Routine 03/06/2018 6:05 Results for this GRAM STAIN PM CDT procedure are in the results section. AFB CULTURE + SMEAR Routine 03/06/2018 6:05 Results for this PM CDT procedure are in the results section. CYTOLOGY AP Routine 03/06/2018 5:00 Results for this PM CDT procedure are in the results section. US LIVER BIOPSY IRINA 03/06/2018 4:37 Results for this PM CDT procedure are in the results section. US PARACENTESIS IRINA 03/06/2018 4:00 Results for this PM CDT procedure are in the results section. PT/APTT STAT 03/06/2018 8:25 Results for this AM CDT procedure are in the results section. OVA AND PARASITE Routine 03/06/2018 7:52 Results for this EXAMINATION AM CDT procedure are in the results section. MAGNESIUM Routine 03/05/2018 3:17 Results for this PM CDT procedure are in the results section. POTASSIUM Routine 03/05/2018 3:17 Results for this PM CDT procedure are in the results section. CBC W/PLT COUNT & AUTO Routine 03/05/2018 9:13 Results for this DIFFERENTIAL AM CDT procedure are in the results section. CBC W/PLT COUNT & AUTO Routine 03/05/2018 9:13 Results for this DIFFERENTIAL AM CDT procedure are in the results section. TSH/FREE T4 IF INDICATED Routine 03/05/2018 4:40 Results for this AM CDT procedure are in the results section. MAGNESIUM Routine 03/05/2018 4:40 Results for this AM CDT procedure are in the results section. PROTHROMBIN TIME/INR Routine 03/05/2018 4:40 Results for this AM CDT procedure are in the results section. HEPATIC FUNCTION PANEL Routine 03/05/2018 4:40 Results for this AM CDT procedure are in the results section. BASIC METABOLIC PANEL Routine 03/05/2018 4:40 Results for this (7) AM CDT procedure are in the results section. MAGNESIUM Routine 03/04/2018 6:24 Results for this PM CDT procedure are in the results section. POTASSIUM Routine 03/04/2018 6:24 Results for this PM CDT procedure are in the results section. CBC W/PLT COUNT & AUTO Routine 03/04/2018 6:00 Results for this DIFFERENTIAL AM CDT procedure are in the results section. CBC W/PLT COUNT & AUTO Routine 03/04/2018 6:00 Results for this DIFFERENTIAL AM CDT procedure are in the results section. MAGNESIUM Routine 03/04/2018 6:00 Results for this AM CDT procedure are in the results section. PROTHROMBIN TIME/INR Routine 03/04/2018 6:00 Results for this AM CDT procedure are in the results section. HEPATIC FUNCTION PANEL Routine 03/04/2018 6:00 Results for this AM CDT procedure are in the results section. BASIC METABOLIC PANEL Routine 03/04/2018 6:00 Results for this (7) AM CDT procedure are in the results section. STOOL PATH CHARGE Routine 03/03/2018 8:16 Results for this PM CDT procedure are in the results section. SHIGA TOXIN SCREEN Routine 03/03/2018 8:16 Results for this PM CDT procedure are in the results section. STOOL CULTURE + SHIGA Routine 03/03/2018 8:16 Results for this TOXIN PM CDT procedure are in the results section. C. DIFFICILE GDH TOXIN Routine 03/03/2018 8:16 Results for this PM CDT procedure are in the results section. BLOOD CULTURE Routine 03/03/2018 11:19 Results for this AM CDT procedure are in the results section. BLOOD CULTURE Routine 03/03/2018 11:19 Results for this AM CDT procedure are in the results section. CBC W/PLT COUNT & AUTO Routine 03/03/2018 6:13 Results for this DIFFERENTIAL AM CDT procedure are in the results section. LIPASE Add-On 03/03/2018 6:13 Results for this AM CDT procedure are in the results section. AMYLASE Add-On 03/03/2018 6:13 Results for this AM CDT procedure are in the results section. CBC W/PLT COUNT & AUTO Routine 03/03/2018 6:13 Results for this DIFFERENTIAL AM CDT procedure are in the results section. MAGNESIUM Routine 03/03/2018 6:13 Results for this AM CDT procedure are in the results section. PROTHROMBIN TIME/INR Routine 03/03/2018 6:13 Results for this AM CDT procedure are in the results section. HEPATIC FUNCTION PANEL Routine 03/03/2018 6:13 Results for this AM CDT procedure are in the results section. BASIC METABOLIC PANEL Routine 03/03/2018 6:13 Results for this (7) AM CDT procedure are in the results section. MR ABDOMEN WITH/WITHOUT Routine 01/23/2018 9:23 Liver mass Results for this IV CONTRAST AM CDT Hepatic fibrosis procedure are in (HCC) the results Cancer screening section. Elevated tumor markers CBC W/PLT COUNT & AUTO Routine 01/15/2018 10:58 Liver mass Results for this DIFFERENTIAL AM CDT Hepatic fibrosis procedure are in (HCC) the results Cancer screening section. Elevated tumor markers CBC W/PLT COUNT & AUTO Routine 01/15/2018 10:58 Liver mass Results for this DIFFERENTIAL AM CDT Hepatic fibrosis procedure are in (HCC) the results Cancer screening section. Elevated tumor markers FERRITIN Routine 01/15/2018 10:58 Liver mass Results for this AM CDT Hepatic fibrosis procedure are in (HCC) the results Cancer screening section. Elevated tumor markers CARCINOEMBRYONIC ANTIGEN Routine 01/15/2018 10:58 Liver mass Results for this (CEA) AM CDT Hepatic fibrosis procedure are in (HCC) the results Cancer screening section. Elevated tumor markers CARBOHYDRATE ANTIGEN Routine 01/15/2018 10:58 Liver mass Results for this 19-9 (CA 19-9) AM CDT Hepatic fibrosis procedure are in (HCC) the results Cancer screening section. Elevated tumor markers ALPHA FETOPROTEIN (AFP), Routine 01/15/2018 10:58 Liver mass Results for this TUMOR MARKER AM CDT Hepatic fibrosis procedure are in (HCC) the results Cancer screening section. Elevated tumor markers ANTI-NUCLEAR ANTIBODY Routine 01/15/2018 10:58 Liver mass Results for this (MESSI) AM CDT Hepatic fibrosis procedure are in (HCC) the results Cancer screening section. Elevated tumor markers HEPATITIS A ANTIBODY, Routine 01/15/2018 10:58 Liver mass Results for this IGG AM CDT Hepatic fibrosis procedure are in (HCC) the results Cancer screening section. Elevated tumor markers HEPATITIS A ANTIBODY, Routine 01/15/2018 10:58 Liver mass Results for this IGM AM CDT Hepatic fibrosis procedure are in (HCC) the results Cancer screening section. Elevated tumor markers PROTHROMBIN TIME/INR Routine 01/15/2018 10:57 Liver mass Results for this AM CDT Hepatic fibrosis procedure are in (HCC) the results Cancer screening section. Elevated tumor markers GAMMA GLUTAMYL Routine 01/15/2018 10:57 Liver mass Results for this TRANSFERASE (GGT) AM CDT Hepatic fibrosis procedure are in (HCC) the results Cancer screening section. Elevated tumor markers IRON, TIBC, % SAT. Routine 01/15/2018 10:57 Liver mass Results for this (WITHOUT FERRITIN) AM CDT Hepatic fibrosis procedure are in (HCC) the results Cancer screening section. Elevated tumor markers HEPATIC FUNCTION PANEL Routine 01/15/2018 10:57 Liver mass Results for this AM CDT Hepatic fibrosis procedure are in (HCC) the results Cancer screening section. Elevated tumor markers BASIC METABOLIC PANEL Routine 01/15/2018 10:57 Liver mass Results for this (7) AM CDT Hepatic fibrosis procedure are in (HCC) the results Cancer screening section. Elevated tumor markers CANCER ANTIGEN 125 (CA Routine 01/15/2018 10:57 Liver mass Results for this 125) AM CDT Hepatic fibrosis procedure are in (HCC) the results Cancer screening section. Elevated tumor markers ACTIN (SMOOTH MUSCLE) Routine 01/15/2018 10:57 Liver mass Results for this ANTIBODY, IGG AM CDT Hepatic fibrosis procedure are in (HCC) the results Cancer screening section. Elevated tumor markers HEPATITIS C ANTIBODY Routine 01/15/2018 10:57 Liver mass Results for this AM CDT Hepatic fibrosis procedure are in (HCC) the results Cancer screening section. Elevated tumor markers HEPATITIS B SURFACE Routine 01/15/2018 10:57 Liver mass Results for this ANTIGEN AM CDT Hepatic fibrosis procedure are in (HCC) the results Cancer screening section. Elevated tumor markers HEPATITIS B SURFACE Routine 01/15/2018 10:57 Liver mass Results for this ANTIBODY AM CDT Hepatic fibrosis procedure are in (HCC) the results Cancer screening section. Elevated tumor markers HEPATITIS B CORE Routine 01/15/2018 10:57 Liver mass Results for this ANTIBODY, TOTAL AM CDT Hepatic fibrosis procedure are in (HCC) the results Cancer screening section. Elevated tumor markers after 04/26/2017 Results US Paracentesis (04/15/2018 1:45 PM [facility])Only the most recent of2 resultswithin the time period is included. Narrative Performed At FINAL REPORT [facility] PROCEDURE: Ultrasound-guided paracentesis. INDICATION: 72-year-old woman with malignant ascites. DESCRIPTION: After obtaining informed written consent, ultrasound scan of the abdomen identified ascites in the right lower quadrant. The overlying skin was prepped and draped in the usual, sterile fashion and local 1% lidocaine anesthesia was administered. A 5 Chinese catheter was advanced into the peritoneal cavity and 4500 cc of serous fluid was removed. The catheter was removed without immediate complication. Samples were sent to the lab for storage. IMPRESSION: Uncomplicated ultrasound-guided paracentesis with 4500 cc fluid removed. Signed: Gena Roper MD Report Verified Date/Time:04/16/2018 08:29:05 Reading Location: [address] Ultrasound Reading Room Procedure Note Interface, External Ris In - 04/16/2018 8:31 AM [facility] FINAL REPORT PROCEDURE: Ultrasound-guided paracentesis. INDICATION: 72-year-old woman with malignant ascites. DESCRIPTION: After obtaining informed written consent, ultrasound scan of the abdomen identified ascites in the right lower quadrant. The overlying skin was prepped and draped in the usual, sterile fashion and local 1% lidocaine anesthesia was administered. A 5 Chinese catheter was advanced into the peritoneal cavity and 4500 cc of serous fluid was removed. The catheter was removed without immediate complication. Samples were sent to the lab for storage. IMPRESSION: Uncomplicated ultrasound-guided paracentesis with 4500 cc fluid removed. Signed: Gena Roper MD Report Verified Date/Time: 04/16/2018 08:29:05 Reading Location: [address] Ultrasound Reading Room Performing Organization Address City/State/[facility] Phone Number GE RIS PT/aPTT (04/15/2018 10:22 AM [facility])Only the most recent of2 resultswithin the time period is included. Protime 19.2 (H) 11.7 - 14.7 seconds [facility] INR 1.6 <=5.9 [facility] PTT 32.3 22.5 - 36.0 seconds [facility] Specimen Blood Narrative Performed At RECOMMENDED COUMADIN/WARFARIN INR THERAPY [facility] RANGES STANDARD DOSE: 2.0 - 3.0 Includes: PROPHYLAXIS for venous thrombosis, systemic embolization; TREATMENT for venous thrombosis and/or pulmonary embolus. HIGH RISK: Target INR is 2.5-3.5 for patients with mechanical heart valves. Performing Organization Address [facility] Phone Number [address] [address] [phone] CENTER Platelet count (04/15/2018 10:22 AM [facility]) Platelets 184 150 - 450 K/CU MM [facility] Specimen Blood Performing Organization Address [facility] Phone Number [address] [address] [phone] CENTER CBC with platelet count + automated diff (03/07/2018 6:01 AM CDT)Only the most recent of5 resultswithin the time period is included. WBC 5.0 3.5 - 10.5 K/L [facility] RBC 4.08 3.93 - 5.22 M/L [facility] Hemoglobin 10.7 (L) 11.2 - 15.7 GM/DL [facility] Hematocrit 35.5 34.1 - 44.9 % [facility] MCV 87.0 79.4 - 94.8 fL [facility] MCH 26.2 25.6 - 32.2 pg [facility] MCHC 30.1 (L) 32.2 - 35.5 GM/DL [facility] RDW 18.9 (H) 11.7 - 14.4 % [facility] Platelets 125 (L) 150 - 450 K/CU MM [facility] MPV 11.6 9.4 - 12.3 fL [facility] nRBC 0 0 - 0 /100 WBC [facility] % Neutros 61 % [facility] % Lymphs 24 % [facility] % Monos 9 % [facility] % Eos 5 % [facility] % Baso 1 % [facility] # Neutros 3.08 1.56 - 6.13 K/L [facility] # Lymphs 1.19 1.18 - 3.74 K/L [facility] # Monos 0.44 (H) 0.24 - 0.36 K/L [facility] # Eos 0.23 0.04 - 0.36 K/L [facility] # Baso 0.06 0.01 - 0.08 K/L [facility] Immature Granulocytes-Relative 0 0 - 1 % [facility] Specimen Blood - Arm, Left Performing Organization Address City/[facility]/Zipcode Phone Number [facility] [address] [place] [phone] CENTER Magnesium (03/07/2018 6:01 AM CDT)Only the most recent of6 resultswithin the time period is included. Magnesium 1.5 (L) 1.6 - 2.6 mg/dL [facility] Specimen Blood - Arm, Left Performing Organization Address City/[facility]/Zipcode Phone Number [facility] [address] [place] Basic Metabolic Panel (03/07/2018 6:01 AM CDT)Only the most recent of5 resultswithin the time period is included. Sodium 138 136 - 145 meq/L [facility] Potassium 3.5 3.5 - 5.1 meq/L [facility] Chloride 102 98 - 107 meq/L [facility] CO2 30 (H) 22 - 29 meq/L [facility] BUN 8 7 - 21 mg/dL [facility] Creatinine 0.71 0.57 - 1.25 mg/dL [facility] Glucose 83 70 - 105 mg/dL [facility] Calcium 8.0 (L) 8.4 - 10.2 mg/dL [facility] EGFR 80Comment: ESTIMATED GFR IS mL/min/1.73 sq m [facility] NOT ACCURATE CREATININE [facility] CENTER CLEARANCE IN PREDICTING GLOMERULAR FILTRATION RATE. ESTIMATED GFR IS NOT APPLICABLE FOR DIALYSIS PATIENTS. Specimen Blood - Arm, Left Performing Organization Address City/State/Zipcode Phone Number [address] [address] [place] Tissue Exam (03/06/2018 10:03 PM CDT) Case Report Surgical Pathology Report Case: [id number] [facility] Authorizing Provider:Quincy Graham MDCollected: 03/06/2018 2203 [facility] Ordering Location: [address] Received: 03/06/20183 Service Pathologist: Susan Erickson MD Specimen:Biopsy, Liver, Bx ADDENDUM 2 Addendum for documentation of immunohistochemical stains to assess for possible metastatic breast carcinoma. [facility] [facility] The immunohistochemical markers GCDFP, GATA3, and mammoglobin are all NEGATIVE. [facility] Added CPT codes: 34237 x3 ADDENDUM Spelling check: steatosis [facility] Not steaosis/mlo [facility] No other changes are noted. DIAGNOSIS LIVER, CORE BIOPSY: 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 The immunohistochemical stains are supportive of this diagnosis, which was the expected one, per Dr. Graham. [facility] Carcinoma of the extrahepatic bile ducts, or pancreas would have a similar appearance. However, on discussion with Dr. Graham, on 03/11/2018, no lesions in the extrahepatic bile ducts or pancreas are note [facility] d. In addition to the mass in the dome region, there is a second mass near the liver hilum. CPT Code(s) [address] [facility] 63810 x 1 [facility] 88794 x 8 CLINICAL HISTORY Cirrhosis; 4 cm mass near dome [facility] of liver (and see Comment) [facility] MICROSCOPIC DESCRIPTION In addition to the tumor, which 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 This shows mostly microvesicular steatosis. An occasional central vein or rare benign bile duct is noted. Nonneoplastic liver is not present in sufficient quantity to evaluate for cirrhosis, etc. SPECIAL STUDIES The following special studies were performed on this case and the interpretation is incorporated in the diagnostic report above: Positive stains are noted in the carcinoma for CEA, MOC 31, CK 19, and CK 7. [facility] Stains for arginase, CK 20, CD X2, hepatocyte marker, and glypican 3 are negative [facility] The immunohistochemistry test was developed and its performance characteristics determined by [facility], Pathology Laboratory. It has not been cleared or approved by the U.S. Food and Drug Administration. The FDA has determined that such clearance or approval is not necessary. The test is used for clinical purposes. It should not be regarded as investigational or for research. This laboratory is certified under the Clinical Laboratory Improvement Amendments of 1988 (CLIA-88) as qualified to perform high complexity clinical laboratory testing. Specimen Tissue - Biopsy, Liver Performing Organization Address [facility]/Zipcode Phone Number [facility] [address] [place] [address] [phone] CENTER AFB culture + smear (03/06/2018 6:05 PM CDT) Result No acid-fast bacilli isolated in [facility] 42 days CENTER [employer] Smear No acid fast bacilli seen [facility] Specimen Body Fluid - Paracentesis Performing Organization Address [facility]/Zipcode Phone Number [facility] [address] [place] [address] [phone] CENTER Body fluid culture + gram stain (03/06/2018 6:05 PM CDT) Result No growth [facility] Gram Stain Result <1+ WBCs [facility] Gram Stain Result No organisms seen [facility] Specimen Body Fluid - Paracentesis Performing Organization Address [facility] Cent[facility]ode Phone Number [facility] [address] [place] [address] [phone] CENTER Fungus culture + smear (03/06/2018 6:05 PM CDT) Result No fungus isolated in 28 days [facility] Fungus Smear No fungi seen [facility] Specimen Body Fluid - Paracentesis Performing Organization Address [facility] Centercode Phone Number [facility] [address] [place] [phone] [place] Body fluid cell count with differential (03/06/2018 6:05 PM CDT) Appearance Hazy (A) Clear [facility] Color Yellow (A) Colorless, Straw [facility] RBCs 1,710 (H) <=1 /cu mm [facility] Adjusted WBC Count 520 (H) <=5 /cu mm [facility] Lining Cells 10 (H) <=1 /cu mm [facility] % Segs 5 % [facility] % Lymphs 70 % [facility] % Monos 25 % [facility] % Eos 0 % [facility] % Baso 0 % [facility] Container Body Fluid EDTA Tube [facility] Specimen Body Fluid - Paracentesis Performing Organization Address City/State/Zipcode Phone Number [address] [address] [place] Cytology (03/06/2018 5:00 PM CDT) Case Report Medical Cytology Report Case: [id number] [facility] Authorizing Provider:Axel Camarena, Collected: 03/06/2018 1700 [facility] Ordering Location: [address] Received: 03/09/2018 0921 Service Pathologist: Oswaldo Merrill MD Specimen:Peritoneal Fluid DIAGNOSIS PERITONEAL FLUID (CYTOSPINS AND CELL BLOCK): [facility] - NEGATIVE FOR EPITHELIAL MALIGNANCY [facility] CHRONIC INFLAMMATION PRESENT Signing Pathologist Direct Phone Line: [phone] CPT Code(s) 74861, 26809 [facility] CLINICAL DATA Ascites, newly diagnosed [facility] with cirrhosis, history of [facility] skin cancer SPECIMEN SOURCE PERITONEAL FLUID [facility] GROSS DESCRIPTION 1000 mls orange; 4 cytospins, cell block [facility] Collected: [id number] [facility] Received: [id number] STATEMENT OF ADEQUACY Satisfactory [facility] Technical component was [facility] performed at [place], Department of [facility] Pathology, [address] [place] [address], Professional component was [facility] performed at [place], Department of [facility] Pathology, [address] [place] [address], Specimen Body Fluid - Peritoneal Fluid Narrative Performed At Performing Organization Address City/State/Zipcode Phone Number [facility] [address] [place] [address] CENTER US liver biopsy (03/06/2018 4:37 PM CDT) Narrative Performed At FINAL REPORT [employer] [facility] PROCEDURE: Ultrasound-guided core biopsy of right liver mass. INDICATION: 72-year-old woman with right liver mass. COMPARISON: Abdomen MRI 01/23/2018, outside abdomen and pelvis CT 03/02/2018. SEDATION: Intravenous moderate sedation was administered by radiology nursing and monitored under the direction of the undersigned radiologist. The patient's vital signs were monitored throughout the procedure and recorded in the patient's medical record by radiology nursing. Total intraservice time of sedation was 30 minutes. MEDICATIONS: 0.5 mg Versed, 50 mcg fentanyl DESCRIPTION: After obtaining informed written consent, the patient was brought to the procedure room and placed in the left lateral decubitus position.Preliminary ultrasound scan of the liver revealed an ill-defined hypoechoic area in the posterior right hepatic lobe which correlates with mass seen on recent CT and MRI. This area was targeted for biopsy. The overlying skin was prepped and draped in the usual, sterile fashion and local 1% lidocaine anesthesia was administered. Under ultrasound guidance, a 17-gauge introducer needle was inserted into the right lateral abdominal wall and placed into the suspected liver mass via an intercostal approach. The inner stylette was removed, and an 18-gauge core biopsy needle was passed through the introducer and into the mass. Four core biopsy samples of the mass were obtained. The needles were removed. The samples were placed in formalin and sent to pathology. Follow-up exam revealed no evidence for hematoma. There were no immediate complications. IMPRESSION: Uncomplicated ultrasound-guided core biopsy right liver mass. Signed: Gena Roper MD Report Verified Date/Time:03/06/2018 17:29:22 Reading Location: [facility] [id number] Ultrasound Reading Room Procedure Note Interface, External Ris In - 03/06/2018 5:31 PM CDT FINAL REPORT PROCEDURE: Ultrasound-guided core biopsy of right liver mass. INDICATION: 72-year-old woman with right liver mass. COMPARISON: Abdomen MRI 01/23/2018, outside abdomen and pelvis CT 03/02/2018. SEDATION: Intravenous moderate sedation was administered by radiology nursing and monitored under the direction of the undersigned radiologist. The patient's vital signs were monitored throughout the procedure and recorded in the patient's medical record by radiology nursing. Total intraservice time of sedation was 30 minutes. MEDICATIONS: 0.5 mg Versed, 50 mcg fentanyl DESCRIPTION: After obtaining informed written consent, the patient was brought to the procedure room and placed in the left lateral decubitus position. Preliminary ultrasound scan of the liver revealed an ill-defined hypoechoic area in the posterior right hepatic lobe which correlates with mass seen on recent CT and MRI. This area was targeted for biopsy. The overlying skin was prepped and draped in the usual, sterile fashion and local 1% lidocaine anesthesia was administered. Under ultrasound guidance, a 17-gauge introducer needle was inserted into the right lateral abdominal wall and placed into the suspected liver mass via an intercostal approach. The inner stylette was removed, and an 18-gauge core biopsy needle was passed through the introducer and into the mass. Four core biopsy samples of the mass were obtained. The needles were removed. The samples were placed in formalin and sent to pathology. Follow-up exam revealed no evidence for hematoma. There were no immediate complications. IMPRESSION: Uncomplicated ultrasound-guided core biopsy right liver mass. Signed: Gena Roper MD Report Verified Date/Time: 03/06/2018 17:29:22 Reading Location: [address] Ultrasound Reading Room Performing Organization Address City/State/Zipcode Phone Number [facility] Ova and Parasite Examination (03/06/2018 7:52 AM CDT) O&P Direct Smear Comment: Test not No ova or parasites [facility] performed at [facility]. seen [facility] See scanned report. O&P Concentrate Smear No ova or parasites No ova or parasites [facility] seen seen [facility] O&P Trichrome Smear No ova or parasites No ova or parasites [facility] seen seen [facility] Specimen Stool Narrative Performed At Performing Organization Address City/[facility]/Zipcode Phone Number [address] [address] [phone] CENTER Potassium (03/05/2018 3:17 PM CDT)Only the most recent of2 resultswithin the time period is included. Potassium 3.4 (L) 3.5 - 5.1 meq/L [facility] Specimen Blood - Arm, Right Performing Organization Address [facility] Centercode Phone Number [address] [address] [phone] [place] TSH/Free T4 If Indicated (03/05/2018 4:40 AM CDT) TSH 1.76 0.35 - 4.94 uIU/mL [facility] Specimen Blood - Arm, Right Performing Organization Address [facility] Phone Number [address] [address] [place] Prothrombin time/INR (03/05/2018 4:40 AM CDT)Only the most recent of4 resultswithin the time period is included. Protime 18.9 (H) 11.7 - 14.7 seconds [facility] INR 1.6 <=5.9 [facility] Specimen Blood - Arm, Right Narrative Performed At [facility] RECOMMENDED COUMADIN/WARFARIN INR THERAPY RANGES STANDARD DOSE: 2.0 - 3.0 Includes: PROPHYLAXIS for venous thrombosis, systemic embolization; TREATMENT for venous thrombosis and/or pulmonary embolus. HIGH RISK: Target INR is 2.5-3.5 for patients with mechanical heart valves. Performing Organization Address [facility] Centercode Phone Number [address] [address] C[place] Hepatic function panel (03/05/2018 4:40 AM CDT)Only the most recent of4 resultswithin the time period is included. Protein, Total 5.6 (L) 6.0 - 8.3 gm/dL [facility] Albumin 2.5 (L) 3.5 - 5.0 g/dL [facility] Total Bilirubin 0.5 0.2 - 1.2 mg/dL [facility] Bilirubin, Direct 0.4 0.1 - 0.5 mg/dL [facility] Alkaline Phosphatase 158 (H) 40 - 150 U/L [facility] AST 39 (H) 5 - 34 U/L [facility] ALT 14 6 - 55 U/L [facility] Specimen Blood - Arm, Right Performing Organization Address [facility] Center[facility]y Phone Number [address] [address] CENTER Clostridium difficile [facility] Toxin (03/03/2018 8:16 PM CDT) C. Difficle Toxin Negative Negative [facility] C. Difficile G[facility] Antigen NegativeComment: No Negative [facility] indication of Clostridium [facility] difficile infection and no colonization. Discontinue enteric isolation and therapy. Specimen Stool - Stool Narrative Performed At Testing performed by [employer] [facility] Assay.For GDH, published sensitivity of the assay is 98.7% compared to cytotoxicity testing.For Toxin AB, published sensitivity is 87.8% and specificity 99.4% compared to cytotoxicity testing. Verification of kit performance was done by the [facility] Microbiology Lab prior to clinical use. Performing Organization Address City/[facility]/Zipcode Phone Number [address] [address] [place] STOOL PATH CHARGE (03/03/2018 8:16 PM CDT) Pathogen exam charged Done [facility] Specimen Stool - Per Rectum Performing Organization Address City/[facility]/Zipcode Phone Number [address] [address] [place] Shiga Toxin Screen (03/03/2018 8:16 PM CDT) Shiga toxin 1 Not detected Not detected [facility] Shiga toxin 2 Not detected Not detected [facility] Specimen Stool - Per Rectum Performing Organization Address [facility] Phone Number [address] [address] [phone] [place] Stool culture + Shiga toxin (03/03/2018 8:16 PM CDT) Result No Salmonella, Shigella or [facility] Campylobacter isolated [facility] Specimen Stool - Per Rectum Performing Organization Address [facility] Phone Number [address] [address] [place] Blood culture (03/03/2018 11:19 AM CDT)Only the most recent of2 resultswithin the time period is included. Result No growth in 5 days [facility] Specimen Blood - Arm, Left Performing Organization Address [facility] Phone Number [address] [address] [phone] [place] Lipase (03/03/2018 6:13 AM CDT) Lipase 24 8 - 78 U/L [facility] Specimen Blood - Arm, Right Performing Organization Address [facility] Phone Number [address] [address] [phone] [place] Amylase (03/03/2018 6:13 AM CDT) Amylase 34 25 - 125 U/L [facility] Specimen Blood - Arm, Right Performing Organization Address [facility] Phone Number [address] [address] [place] MRI abdomen with and without contrast (01/23/2018 9:23 AM CDT) Narrative Performed At FINAL REPORT [facility] MRI of the abdomen with and without [...] MD Report Verified Date/Time:01/23/2018 10:16:08 Reading Location: [address] Radiology Reading Room Procedure Note Interface, [...] Report Verified Date/Time: 01/23/2018 10:16:08 Reading Location: [address] Radiology Reading Room Performing Organization Address [facility] Centercode Phone Number [facility] Hepatitis A antibody, IgG (01/15/2018 10:58 AM CDT) Hep A IgG Nonreactive Nonreactive [facility] Specimen Blood Performing Organization Address [facility] Centercode Phone Number [address] [address] CENTER Hepatitis A antibody, IgM (01/15/2018 10:58 AM CDT) Hep A IgM HEPATITIS A TEST NEGATIVE Nonreactive [facility] Specimen Blood Performing Organization Address [facility] Phone Number [address] [address] [phone] [place] Carbohydrate antigen 19-9 (CA 19-9) (01/15/2018 10:58 AM CDT) CA 19-9 208 (H) <34 U/mL [facility] Comment: This test was performed using the Siemens (Koru) Chemiluminescent method. Values obtained from different assay methods cannot be used interchangeably. CA19-9 levels, regardless of value, should not be interpreted as absolute evidence of the presence or absence of disease. Specimen Blood Narrative Performed At Performing Lab [facility] [employer] [place] [address] [place] [address] Benjie Vazquez MD, PhD, REINIER Performing Organization Address [facility] Phone Number [employer] [place] [address] [facility]ORPORATED [address] [facility] Alpha fetoprotein (AFP), tumor marker (01/15/2018 10:58 AM CDT) Alpha-Fetoprotein 3.4 <10.0 ng/mL [facility] Specimen Blood Performing Organization Address [facility]/Zipcode Phone Number [address] [address] CENTER Anti-Nuclear Antibody (MESSI) (01/15/2018 10:58 AM CDT) MESSI Negative Negative [facility] Specimen Blood Narrative Performed At [facility] Test performed by IFA method. Test performed by IFA method. Performing Organization Address [facility] Phone Number [address] [address] [place] Ferritin (01/15/2018 10:58 AM CDT) Ferritin 33 5 - 275 ng/mL [facility] Specimen Blood Performing Organization Address [facility] Phone Number [address] [address] C[place] Carcinoembryonic Antigen (CEA) (01/15/2018 10:58 AM CDT) CEA, SERUM 1.6 0.0 - 5.0 ng/mL [facility] Specimen Blood Performing Organization Address [facility] Phone Number [address] [address] C[place] Iron, TIBC, % sat. (without ferritin) (01/15/2018 10:57 AM CDT) Iron 41 40 - 160 ug/dL [facility] TIBC 358 250 - 450 ug/dL [facility] Iron % Saturation 11 (L) 20 - 55 % [facility] Specimen Blood Performing Organization Address [facility] Phone Number [address] [address] [phone] CENTER Hepatitis C antibody (01/15/2018 10:57 AM CDT) Hepatitis C Ab NON-REACTIVE Nonreactive [facility] Specimen Blood Performing Organization Address City/State/Zipcode Phone Number [address] [address] [phone] [place] Actin (Smooth Muscle) Antibody, IgG (01/15/2018 10:57 AM CDT) Anti-Smooth Muscle Ab <20 See Note: U [facility] Comment: [facility] Reference Range: <20 NEGATIVE > OR=20 POSITIVE [...] closely correlated with AIH type 1. Specimen Blood Narrative Performed At Performing Lab [facility] [address] [address] Benjie Vazquez MD, PhD, REINIER Performing Organization Address City/[facility] Centercode Phone Number [place] [address] [place] [address] Hepatitis B core antibody, total (01/15/2018 10:57 AM CDT) Hep B Core Total Ab NON-REACTIVE Nonreactive [facility] Specimen Blood Performing Organization Address [facility] Centercode Phone Number [address] [address] [place] Hepatitis B surface antibody (01/15/2018 10:57 AM CDT) Hep B S Ab <8.0 <8.0 mIU/mL [facility] Specimen Blood Performing Organization Address City/State/Zipcode Phone Number [address] [address] [place] Hepatitis B surface antigen (01/15/2018 10:57 AM CDT) hepatitis B Surface Ag NON-REACTIVE Nonreactive [facility] Specimen Blood Performing Organization Address City/[facility]/Zipcode Phone Number [address] [address] [phone] [place] Cancer Antigen 125 (CA 125) (01/15/2018 10:57 AM CDT) CA 125 221 (H) <35 U/mL [facility] Comment: This test was performed using the Oswaldo Sharda Chemiluminescent method. Values obtained from different assay methods cannot be used interchangeably. CA 125 levels, regardless of value, should not be interpreted as absolute evidence of the presence or absence of disease. Specimen Blood Narrative Performed At Performing Lab [facility] [address] [place] [address] Benjie Vazquez MD, PhD, REINIER Performing Organization Address City/[facility] Centercode [place] [address] [facility]ORPORATED [address] [facility] Gamma Glutamyl Transferase (GGT) (01/15/2018 10:57 AM CDT) GGT 130 (H) 9 - 64 U/L [facility] Specimen Blood Performing Organization Address City/[facility] Centercode Phone Number [address] [address] CENTER after 04/26/2017 Insurance Payer Benefit Plan / Group Subscriber ID Type Phone Address MEDICARE MEDICARE A B xxxxxxxxxxx Medicare MCR SUPPLEMENT/INDIVIDUAL AARP/[facility] xxxxxxxxxxx [facility] Advance Directives Patient has advance care planning documents, and code status on file. For more information, please contact:[address] [phone] Code Status Date Activated Date Inactivated Comments Full Code 03/02/2018 9:34 PM 03/07/2018 7:57 PM This code status was determined by: Patient
--- OUTSIDE RECORDS SUMMARY | 2018-04-27 16:08 | XMS REPORT ---
:1945 [facility] Address [address] [place] [address] [address]. [address] [place] [address] Care Team Providers Name Role Phone JUNEDileep LUIS Kumar Unavailable Unavailable NERI JIMENEZ Unavailable Unavailable ABRAHAM DE LEÓN Unavailable Unavailable CRISTOBAL MCCALLUM Unavailable Unavailable MARIA TERESA MACIAS Unavailable Unavailable Problems This patient has no known problems. Allergies, Adverse Reactions, Alerts This patient has no known allergies or adverse reactions. Medications This patient has no known medications. Results Test Description Test Time Test Comments Text Results Atomic Results Result Comments AFB CULTURE + SMEAR 2018-04-26 21:27:00 Test Item Value Reference Range Comments CULTURE (BEAKER) (test efjj=3367) No acid-fast bacilli isolated in 42 days AFB SMEAR (BEAKER) (test iyha=314) No acid fast bacilli seen U/S, [id number] 08:29:00Referring: Dr. Cristobal Mccallum (Old/new pt.)Reason for Exam:->malignant ascitesFINAL REPORT PROCEDURE: Ultrasound-guided paracentesis. INDICATION: 72-year-old woman with malignant ascites. DESCRIPTION: After obtaining informed written consent, ultrasound scan of the abdomen identified ascites in the right lower quadrant. The overlying skin was prepped and draped in the usual, sterile fashion and local 1% lidocaine anesthesia was administered. A 5 Burkinan catheter was advanced into the peritoneal cavity and 4500 cc of serous fluid was removed. The catheterwas removed without immediate complication. Samples were sent to the lab for storage. IMPRESSION:Uncomplicated ultrasound-guided paracentesis with 4500 cc fluid removed. Signed: Gena Ropereport Verified Date/Time : 04/16/2018 08:29:05 Reading Location: [address] Ultrasound Reading Room PT/ [id number] 11:01:00 Test Item Value Reference Range Comments PROTIME (BEAKER) (test devw=789) 19.2 seconds 11.7-14.7 INR (BEAKER) (test lcip=283) 1.6 <=5.9 PARTIAL THROMBOPLASTIN TIME (BEAKER) (test 32.3 seconds 22.5-36.0 jjyx=797) RECOMMENDED COUMADIN/WARFARIN INR THERAPY RANGESSTANDARD DOSE: 2.0 - 3.0 Includes: PROPHYLAXIS forvenous thrombosis, systemic embolization; TREATMENT for venous thrombosis and/or pulmonary embolus.HIGH RISK: Target INR is 2.5-3.5 for patients with mechanical heart valves.PLATELET [id number] 10:47:00 Test Item Value Reference Range Comments PLATELET COUNT (BEAKER) (test qyxl=629) 184 K/CU MM 150-450 FUNGUS CULTURE + [id number] 11:39:00 Test Item Value Reference Range Comments CULTURE (BEAKER) (test No fungus isolated in 28 days hepy=5678) FUNGUS SMEAR (BEAKER) (test No fungi seen mpnn=8519) TISSUE [id number] 12:38:00Surgical Pathology Report Case: [id number] Authorizing Provider: Quincy Graham MD Collected: 03/06/20183 Ordering Location: [address] Received: 03/06/2018 2213 Service Pathologist: Susan Erickson MD Specimen: Biopsy, Liver, Bx Addendum for documentation of immunohistochemical stains to assess for possible metastatic breast carcinoma.The immunohistochemical markers GCDFP, GATA3, and mammoglobin are all NEGATIVE.Added CPT codes:23822 q2Luowmxputjopneahmgteqz signed by Susan Erickson MD on 04/03/2018 at 12:38 PMSpelling check: steatosisNot steaosis/ mloNo other changes are noted.Addendum electronically signed by Susan Erickson MD on 03/11/2018 at 1:18 PMLIVER, CORE BIOPSY: - ADENOCARCINOMA, MODERATELY DIFFERENTIATED, CONSISTENTWITH CHOLANGIOCARCINOMA (see COMMENT ) - SCANT NONNEOPLASTIC HEPATIC PARENCHYMA WITH MICROVESICULAR STEAOSIS Signing Pathologist Direct Phone Line: [phone] signed by Susan Erickson MD on 03/11/2018 at 12:43 PMThis moderately differentiated adenocarcinoma has features that are histologically consistent with an adenocarcinoma and cholangiocarcinoma. The immunohistochemical stains are supportive of this diagnosis, which was the expected one, per Dr. Graham. Carcinomaof the extrahepatic bile ducts, or pancreas would have a similar appearance. However, on discussion with Dr. Graham, on 03/11/2018, no lesions in the extrahepatic bile ducts or pancreas are noted. In addition to the mass in the dome region, there is a second mass near the liver hilum.[id number] x [id number] 8Cirrhosis; 4 cm mass near dome of liver (and see Comment)In addition to the tumor, which is a moderately differentiated adenocarcinoma consistent with cholangiocarcinoma, some associated hepatic parenchyma is noted. This shows mostly microvesicular steatosis. An occasional central vein or rare benign bile duct is noted. Nonneoplastic liver is not present in sufficient quantity to evaluate for cirrhosis, etc.The following special studies were performed on this case and the interpretation is incorporated in the diagnostic report above: Positive stains are noted in the carcinoma for CEA, MOC 31, CK19, and CK 7. Stains for arginase, CK 20, CD X2, hepatocyte marker, and glypican 3 are negativeThe immunohistochemistry test was developed and its performance characteristics determined by [facility], Pathology Laboratory. It has not been cleared or approved by the U.S. Food and DrugAdministration. The FDA has determined that such clearance or approval is not necessary. The test isused for clinical purposes. It should not be regarded as investigational or for research. This laboratory is certified under the Clinical Laboratory Improvement Amendments of 1988 (CLIA-88) as qualified to perform high complexity clinical laboratory testing.[id number] 13:33: 00Medical Cytology Report Case: [id number] Authorizing Provider: Axel Camarena, Collected : 03/06/2018 1700 OrderingLocation: [address] Received: 03/09/2018 0921 Service Pathologist: Oswaldo Merrill MD Specimen: Peritoneal Fluid PERITONEAL FLUID (CYTOSPINS AND CELL BLOCK): - NEGATIVE FOR EPITHELIAL MALIGNANCY CHRONIC INFLAMMATION PRESENT Signing Pathologist Direct Phone Line: [phone] signed by Oswaldo Merrill MD on 03/10/2018 at 1:33 [id number], [id number], newly diagnosed with cirrhosis, history of skin cancerPERITONEAL EIPOH1563 mls orange; 4 cytospins, cell blockCollected: [id number]: [id number] [facility], Department of Pathology, [address] [place] [address], [facility], [address] [place] [address] , DXXS FLUID CULTURE + GRAM [id number] 16:25:00 Test Item Value Reference Range Comments CULTURE (BEAKER) (test akol=6852) No growth GRAM STAIN RESULT (BEAKER) (test <1+ WBCs hztk=6460) GRAM STAIN RESULT (BEAKER) (test No organisms seen ytuz=14519) BLOOD [id number] 18:00:00 Test Item Value Reference Range Comments CULTURE (BEAKER) (test rcuo=1620) No growth in 5 days BLOOD [id number] 18:00:00 Test Item Value Reference Range Comments CULTURE (BEAKER) (test wzxj=1534) No growth in 5 days [id number] 07:51:00 Test Item Value Reference Range Comments MAGNESIUM (BEAKER) (test bkjd=719) 1.5 mg/dL 1.6-2.6 BASIC METABOLIC [id number] 07:51:00 Test Item Value Reference Range Comments SODIUM (BEAKER) (test 138 meq/L 136-145 kuvg=753) POTASSIUM (BEAKER) (test 3.5 meq/L 3.5-5.1 yoig=556) CHLORIDE (BEAKER) (test 102 meq/L 98-107 itlz=252) CO2 (BEAKER) (test 30 meq/L 22-29 aqzv=334) BLOOD UREA NITROGEN 8 mg/dL 7-21 (BEAKER) (test jcsk=012) CREATININE (BEAKER) (test 0.71 mg/dL 0.57-1.25 uufq=429) GLUCOSE RANDOM (BEAKER) 83 mg/dL 70-105 (test zwmq=291) CALCIUM (BEAKER) (test 8.0 mg/dL 8.4-10.2 shkf=698) EGFR (BEAKER) (test 80 mL/min/1.73 sq m ESTIMATED GFR IS NOT dwfk=1128) ACCURATE CREATININE CLEARANCE IN PREDICTING GLOMERULAR FILTRATION RATE. ESTIMATED GFR IS NOT APPLICABLE FOR DIALYSIS PATIENTS. CBC W/PLT COUNT & AUTO [id number] 07:07:00 Test Item Value Reference Range Comments WHITE BLOOD CELL COUNT (BEAKER) (test nvdc=909) 5.0 K/ L 3.5-10.5 RED BLOOD CELL COUNT (BEAKER) (test ixul=030) 4.08 M/ L 3.93-5.22 HEMOGLOBIN (BEAKER) (test erbl=123) 10.7 GM/DL 11.2-15.7 HEMATOCRIT (BEAKER) (test gekc=895) 35.5 % 34.1-44.9 MEAN CORPUSCULAR VOLUME (BEAKER) (test uvas=499) 87.0 fL 79.4-94.8 MEAN CORPUSCULAR HEMOGLOBIN (BEAKER) (test 26.2 pg 25.6-32.2 knhx=046) MEAN CORPUSCULAR HEMOGLOBIN CONC (BEAKER) (test 30.1 GM/DL 32.2-35.5 ukhk=507) RED CELL DISTRIBUTION WIDTH (BEAKER) (test 18.9 % 11.7-14.4 gnpv=781) PLATELET COUNT (BEAKER) (test duvt=745) 125 K/CU MM 150-450 MEAN PLATELET VOLUME (BEAKER) (test hztg=723) 11.6 fL 9.4-12.3 NUCLEATED RED BLOOD CELLS (BEAKER) (test 0 /100 WBC 0-0 sddb=586) NEUTROPHILS RELATIVE PERCENT (BEAKER) (test 61 % jfgb=008) LYMPHOCYTES RELATIVE PERCENT (BEAKER) (test 24 % rhio=379) MONOCYTES RELATIVE PERCENT (BEAKER) (test 9 % hkfx=643) EOSINOPHILS RELATIVE PERCENT (BEAKER) (test 5 % dfmd=428) BASOPHILS RELATIVE PERCENT (BEAKER) (test 1 % sebp=444) NEUTROPHILS ABSOLUTE COUNT (BEAKER) (test 3.08 K/ L 1.56-6.13 xjbq=053) LYMPHOCYTES ABSOLUTE COUNT (BEAKER) (test 1.19 K/ L 1.18-3.74 kvcm=482) MONOCYTES ABSOLUTE COUNT (BEAKER) (test 0.44 K/ L 0.24-0.36 agae=320) EOSINOPHILS ABSOLUTE COUNT (BEAKER) (test 0.23 K/ L 0.04-0.36 itbc=813) BASOPHILS ABSOLUTE COUNT (BEAKER) (test 0.06 K/ L 0.01-0.08 hvks=168) IMMATURE GRANULOCYTES-RELATIVE PERCENT (BEAKER) 0 % 0-1 (test gfpk=0017) BODY FLUID CELL COUNT WITH [id number] 20:30:00 Test Item Value Reference Range Comments APPEARANCE FLUID (BEAKER) (test zqay=466) Hazy Clear COLOR FLUID (BEAKER) (test ysxt=242) Yellow Colorless, Straw RBC FLUID (BEAKER) (test rbuz=688) 1710 /cu mm <=1 ADJUSTED WBC FLUID (BEAKER) (test mifn=3993) 520 /cu mm <=5 LINING CELLS (BEAKER) (test pcgz=6516) 10 /cu mm <=1 NEUTROPHILS FLUID (BEAKER) (test uwnd=0715) 5 % LYMPHS FLUID (BEAKER) (test qhri=351) 70 % MONO/MACROPHAGE FLUID (BEAKER) (test ohvn=723) 25 % EOSINOPHILS FLUID (BEAKER) (test sptr=817) 0 % BASO FLUID (BEAKER) (test ffmk=753) 0 % CONTAINER BODY FLUID (BEAKER) (test beoi=8089) EDTA Tube U/S, BIOPSY, [id number] 17:29:00Referring: Dr. Cristobal Mccallum (Old/new pt.) Reason for exam:->biopsy 3.3 x 3.5 cm mass in theposterior right hepatic lobe suspicious for cholagiocarcinoma on MRI dated 01/23/18INAL REPORT PROCEDURE: Ultrasound-guided core biopsy of right liver mass. INDICATION: 72-year-old woman with right liver mass. COMPARISON: Abdomen MRI 01/23/2018, outside abdomenand pelvis CT 03/02/2018. SEDATION: Intravenous moderate sedation [...] skin was prepped and draped in the usual , sterile fashion and local 1% lidocaine anesthesia was administered. Under ultrasound guidance, a 17-gauge introducer needle was inserted into the right lateral abdominal wall and placed into the suspected liver mass via an intercostal approach. The inner stylette was removed, and an 18-gauge corebiopsy needle was passed through the introducer and into the mass. Four core biopsy samples of the mass were obtained. The needles were removed. The samples were placed in formalin and sent to pathology. Follow-up exam revealed no evidence for hematoma. There were no immediate complications. IMPRESSION: Uncomplicated ultrasound-guided core biopsy right liver mass. Signed: Gena Roper Verified Date/Time: 03/06/2018 17:29:22 Reading Location: [address] Ultrasound Reading Room U/S, [id number] 17:24:00Referring : Dr. Cristobal Mccallum (Old/new pt.)Reason for exam:->ascitesFINAL REPORT PROCEDURE: Ultrasound-guided paracentesis. INDICATION: 72 -year-old woman with ascites and liver mass. DESCRIPTION: After obtaining informed written consent, ultrasound scan of the abdomen identified ascites in the right upper quadrant quadrant. The overlying skin was prepped and draped in the usual, sterile fashion and local 1% lidocaine anesthesia was administered. A 5 Burkinan catheter was advanced into the peritoneal cavity and 1400 cc of serous fluid was removed. The catheter was removed without immediate complication. Samples were sent for analysis. IMPRESSION:Uncomplicated ultrasound-guided paracentesis with 1400 cc fluid removed. Signed: Gena Roper MDReport Verified Date/Time: 03/06/2018 17:24:36 Reading Location: [address] Ultrasound Reading Room [id number] 08:45:00 Test Item Value Reference Range Comments PROTIME (BEAKER) (test uavn=827) 18.6 seconds 11.7-14.7 INR (BEAKER) (test goct=045) 1.6 <=5.9 PARTIAL THROMBOPLASTIN TIME (BEAKER) (test 36.3 seconds 22.5-36.0 ofyo=416) RECOMMENDED COUMADIN/WARFARIN INR THERAPY RANGESSTANDARD DOSE: 2.0 - 3.0 Includes: PROPHYLAXIS forvenous thrombosis, systemic embolization; TREATMENT for venous thrombosis and/or pulmonary embolus.HIGH RISK: Target INR is 2.5-3.5 for patients with mechanical heart valves.STOOL CULTURE + SHIGA [id number] 08:22:00 Test Item Value Reference Range Comments CULTURE (BEAKER) (test No Salmonella, Shigella or qhbr=3816) Campylobacter isolated OVA AND PARASITE [id number] 07:52:00 Test Item Value Reference Range Comments DIRECT SMEAR - O\\T\\P No ova or parasites Test not performed (BEAKER) (test seen at [facility]. See siop=219) scanned report. CONCENTRATE SMEAR - No ova or parasites No ova or parasites O\\T\\P (BEAKER) (test seen seen wmye=647) TRICHROME SMEAR - O\\T\\P No ova or parasites No ova or parasites (BEAKER) (test seen seen ylfy=215) SHIGA TOXIN [id number] 15:46:00 Test Item Value Reference Range Comments SHIGA TOXIN 1 (BEAKER) (test qybj=5187) Not detected Not detected SHIGA TOXIN 2 (BEAKER) (test dvpv=6598) Not detected Not detected [id number] 15:41:00 Test Item Value Reference Range Comments POTASSIUM (BEAKER) (test swag=440) 3.4 meq/L 3.5-5.1 [id number] 15:41:00 Test Item Value Reference Range Comments MAGNESIUM (BEAKER) (test ofpj=124) 1.9 mg/dL 1.6-2.6 C. DIFFICILE GDH [id number] 11:59:00 Test Item Value Reference Range Comments CDT TOXIN (test Negative Negative lpct=[id number]) CDT GDH ANTIGEN (test Negative Negative No indication of Clostridium yewx=[id number]) difficile infection and no colonization. Discontinue enteric isolation and therapy. Testing performed by [employer] Rapid Cassette Assay. For GDH, published sensitivity of the assay is 98.7% compared to cytotoxicity testing. For Toxin AB, published sensitivity is 87.8% and specificity 99.4% compared to cytotoxicity testing.Verification of kit performance was done by the [facility] Microbiology Lab prior to clinical use.CBC W/PLT COUNT & AUTO [id number] 09:22:00 Test Item Value Reference Range Comments WHITE BLOOD CELL COUNT (BEAKER) (test ooxd=321) 6.8 K/ L 3.5-10.5 RED BLOOD CELL COUNT (BEAKER) (test sftc=076) 4.73 M/ L 3.93-5.22 HEMOGLOBIN (BEAKER) (test mymv=284) 12.4 GM/DL 11.2-15.7 HEMATOCRIT (BEAKER) (test ykmz=948) 40.2 % 34.1-44.9 MEAN CORPUSCULAR VOLUME (BEAKER) (test ftuc=158) 85.0 fL 79.4-94.8 MEAN CORPUSCULAR HEMOGLOBIN (BEAKER) (test 26.2 pg 25.6-32.2 kplz=835) MEAN CORPUSCULAR HEMOGLOBIN CONC (BEAKER) (test 30.8 GM/DL 32.2-35.5 jrlb=420) RED CELL DISTRIBUTION WIDTH (BEAKER) (test 18.9 % 11.7-14.4 bgxn=466) PLATELET COUNT (BEAKER) (test vfvl=401) 152 K/CU MM 150-450 MEAN PLATELET VOLUME (BEAKER) (test cfin=231) 10.7 fL 9.4-12.3 NUCLEATED RED BLOOD CELLS (BEAKER) (test 0 /100 WBC 0-0 zuge=722) NEUTROPHILS RELATIVE PERCENT (BEAKER) (test 58 % qopl=589) LYMPHOCYTES RELATIVE PERCENT (BEAKER) (test 28 % ceau=155) MONOCYTES RELATIVE PERCENT (BEAKER) (test 9 % pyzm=435) EOSINOPHILS RELATIVE PERCENT (BEAKER) (test 4 % tnea=956) BASOPHILS RELATIVE PERCENT (BEAKER) (test 1 % ykfy=727) NEUTROPHILS ABSOLUTE COUNT (BEAKER) (test 3.94 K/ L 1.56-6.13 bmrv=602) LYMPHOCYTES ABSOLUTE COUNT (BEAKER) (test 1.93 K/ L 1.18-3.74 luqu=596) MONOCYTES ABSOLUTE COUNT (BEAKER) (test 0.60 K/ L 0.24-0.36 vneu=724) EOSINOPHILS ABSOLUTE COUNT (BEAKER) (test 0.27 K/ L 0.04-0.36 oxsp=002) BASOPHILS ABSOLUTE COUNT (BEAKER) (test 0.06 K/ L 0.01-0.08 otvt=110) IMMATURE GRANULOCYTES-RELATIVE PERCENT (BEAKER) 0 % 0-1 (test pnbj=5201) TSH/FREE T4 IF [id number] 05:41:00 Test Item Value Reference Range Comments THYROID STIMULATING HORMONE (BEAKER) (test 1.76 uIU/mL 0.35-4.94 yzgy=488) BASIC METABOLIC [id number] 05:23:00 Test Item Value Reference Range Comments SODIUM (BEAKER) (test 139 meq/L 136-145 nrfa=332) POTASSIUM (BEAKER) (test 3.4 meq/L 3.5-5.1 dicy=840) CHLORIDE (BEAKER) (test 103 meq/L 98-107 dqig=048) CO2 (BEAKER) (test 29 meq/L 22-29 uzyh=625) BLOOD UREA NITROGEN 7 mg/dL 7-21 (BEAKER) (test wnph=739) CREATININE (BEAKER) (test 0.77 mg/dL 0.57-1.25 myhb=627) GLUCOSE RANDOM (BEAKER) 103 mg/dL 70-105 (test zhhc=099) CALCIUM (BEAKER) (test 7.8 mg/dL 8.4-10.2 uula=441) EGFR (BEAKER) (test 73 mL/min/1.73 sq m ESTIMATED GFR IS NOT glso=5082) ACCURATE CREATININE CLEARANCE IN PREDICTING GLOMERULAR FILTRATION RATE. ESTIMATED GFR IS NOT APPLICABLE FOR DIALYSIS PATIENTS. [id number] 05:22:00 Test Item Value Reference Range Comments MAGNESIUM (BEAKER) (test ycte=623) 1.5 mg/dL 1.6-2.6 HEPATIC FUNCTION [id number] 05:22:00 Test Item Value Reference Range Comments TOTAL PROTEIN (BEAKER) (test mmjk=197) 5.6 gm/dL 6.0-8.3 ALBUMIN (BEAKER) (test xlud=3373) 2.5 g/dL 3.5-5.0 BILIRUBIN TOTAL (BEAKER) (test pobb=732) 0.5 mg/dL 0.2-1.2 BILIRUBIN DIRECT (BEAKER) (test xxai=838) 0.4 mg/dL 0.1-0.5 ALKALINE PHOSPHATASE (BEAKER) (test hvjl=842) 158 U/L 40-150 AST (SGOT) (BEAKER) (test tgab=514) 39 U/L 5-34 ALT (SGPT) (BEAKER) (test ojqb=487) 14 U/L 6-55 PROTHROMBIN [id number] 05:13:00 Test Item Value Reference Range Comments PROTIME (BEAKER) (test pkrs=278) 18.9 seconds 11.7-14.7 INR (BEAKER) (test sfui=882) 1.6 <=5.9 RECOMMENDED COUMADIN/WARFARIN INR THERAPY RANGESSTANDARD DOSE: 2.0 - 3.0 Includes: PROPHYLAXIS forvenous thrombosis, systemic embolization; TREATMENT for venous thrombosis and/or pulmonary embolus.HIGH RISK: Target INR is 2.5-3.5 for patients with mechanical heart valves.[id number] 18:49:00 Test Item Value Reference Range Comments POTASSIUM (BEAKER) (test dsye=911) 3.0 meq/L 3.5-5.1 [id number] 18:49:00 Test Item Value Reference Range Comments MAGNESIUM (BEAKER) (test tvyh=156) 1.2 mg/dL 1.6-2.6 STOOL PATH [id number] 15:16:00 Test Item Value Reference Range Comments PATHOGEN EXAM CHARGED (BEAKER) (test jowp=4706) Done BASIC METABOLIC [id number] 07:16:00 Test Item Value Reference Range Comments SODIUM (BEAKER) (test 141 meq/L 136-145 thkq=500) POTASSIUM (BEAKER) (test 3.1 meq/L 3.5-5.1 broh=531) CHLORIDE (BEAKER) (test 105 meq/L 98-107 jkmt=931) CO2 (BEAKER) (test 28 meq/L 22-29 pcop=391) BLOOD UREA NITROGEN 8 mg/dL 7-21 (BEAKER) (test hsoz=776) CREATININE (BEAKER) (test 0.77 mg/dL 0.57-1.25 zrwc=128) GLUCOSE RANDOM (BEAKER) 89 mg/dL 70-105 (test wkba=193) CALCIUM (BEAKER) (test 7.9 mg/dL 8.4-10.2 mpix=288) EGFR (BEAKER) (test 73 mL/min/1.73 sq m ESTIMATED GFR IS NOT nraq=7324) ACCURATE CREATININE CLEARANCE IN PREDICTING GLOMERULAR FILTRATION RATE. ESTIMATED GFR IS NOT APPLICABLE FOR DIALYSIS PATIENTS. [id number] 07:13:00 Test Item Value Reference Range Comments MAGNESIUM (BEAKER) (test xrrq=674) 1.3 mg/dL 1.6-2.6 HEPATIC FUNCTION [id number] 07:13:00 Test Item Value Reference Range Comments TOTAL PROTEIN (BEAKER) (test rers=708) 5.7 gm/dL 6.0-8.3 ALBUMIN (BEAKER) (test ooov=3276) 2.5 g/dL 3.5-5.0 BILIRUBIN TOTAL (BEAKER) (test sfjj=159) 0.7 mg/dL 0.2-1.2 BILIRUBIN DIRECT (BEAKER) (test jcnb=352) 0.4 mg/dL 0.1-0.5 ALKALINE PHOSPHATASE (BEAKER) (test efzd=356) 163 U/L 40-150 AST (SGOT) (BEAKER) (test uybq=115) 36 U/L 5-34 ALT (SGPT) (BEAKER) (test zzbh=407) 13 U/L 6-55 PROTHROMBIN [id number] 06:54:00 Test Item Value Reference Range Comments PROTIME (BEAKER) (test kwwb=796) 18.3 seconds 11.7-14.7 INR (BEAKER) (test xquq=304) 1.5 <=5.9 RECOMMENDED COUMADIN/WARFARIN INR THERAPY RANGESSTANDARD DOSE: 2.0 - 3.0 Includes: PROPHYLAXIS forvenous thrombosis, systemic embolization; TREATMENT for venous thrombosis and/or pulmonary embolus.HIGH RISK: Target INR is 2.5-3.5 for patients with mechanical heart valves.CBC W/PLT COUNT & AUTO [id number] 06:38:00 Test Item Value Reference Range Comments WHITE BLOOD CELL COUNT (BEAKER) (test xxmd=422) 6.0 K/ L 3.5-10.5 RED BLOOD CELL COUNT (BEAKER) (test bnxy=012) 4.22 M/ L 3.93-5.22 HEMOGLOBIN (BEAKER) (test tirg=801) 11.0 GM/DL 11.2-15.7 HEMATOCRIT (BEAKER) (test tzqx=907) 36.4 % 34.1-44.9 MEAN CORPUSCULAR VOLUME (BEAKER) (test vapt=163) 86.3 fL 79.4-94.8 MEAN CORPUSCULAR HEMOGLOBIN (BEAKER) (test 26.1 pg 25.6-32.2 hrwp=333) MEAN CORPUSCULAR HEMOGLOBIN CONC (BEAKER) (test 30.2 GM/DL 32.2-35.5 vmsl=686) RED CELL DISTRIBUTION WIDTH (BEAKER) (test 19.0 % 11.7-14.4 uils=401) PLATELET COUNT (BEAKER) (test yoew=252) 139 K/CU MM 150-450 MEAN PLATELET VOLUME (BEAKER) (test vqws=668) 10.7 fL 9.4-12.3 NUCLEATED RED BLOOD CELLS (BEAKER) (test 0 /100 WBC 0-0 yjpx=811) NEUTROPHILS RELATIVE PERCENT (BEAKER) (test 53 % piwc=245) LYMPHOCYTES RELATIVE PERCENT (BEAKER) (test 31 % rlcn=346) MONOCYTES RELATIVE PERCENT (BEAKER) (test 10 % krgd=396) EOSINOPHILS RELATIVE PERCENT (BEAKER) (test 5 % vlsm=871) BASOPHILS RELATIVE PERCENT (BEAKER) (test 2 % yecx=121) NEUTROPHILS ABSOLUTE COUNT (BEAKER) (test 3.12 K/ L 1.56-6.13 swxo=808) LYMPHOCYTES ABSOLUTE COUNT (BEAKER) (test 1.84 K/ L 1.18-3.74 onyq=095) MONOCYTES ABSOLUTE COUNT (BEAKER) (test 0.57 K/ L 0.24-0.36 szqb=919) EOSINOPHILS ABSOLUTE COUNT (BEAKER) (test 0.30 K/ L 0.04-0.36 eaiq=301) BASOPHILS ABSOLUTE COUNT (BEAKER) (test 0.10 K/ L 0.01-0.08 wacy=579) IMMATURE GRANULOCYTES-RELATIVE PERCENT (BEAKER) 0 % 0-1 (test xqac=6937) [id number] 13:59:00 Test Item Value Reference Range Comments LIPASE (BEAKER) (test mxvb=910) 24 U/L 8-78 [id number] 13:59:00 Test Item Value Reference Range Comments AMYLASE (BEAKER) (test dofk=392) 34 U/L 25-125 [id number] 07:07:00 Test Item Value Reference Range Comments MAGNESIUM (BEAKER) (test zqpj=014) 1.5 mg/dL 1.6-2.6 BASIC METABOLIC [id number] 07:07:00 Test Item Value Reference Range Comments SODIUM (BEAKER) (test 138 meq/L 136-145 bpwb=795) POTASSIUM (BEAKER) (test 4.0 meq/L 3.5-5.1 cozo=999) CHLORIDE (BEAKER) (test 104 meq/L 98-107 xyat=102) CO2 (BEAKER) (test 26 meq/L 22-29 cttu=761) BLOOD UREA NITROGEN 8 mg/dL 7-21 (BEAKER) (test golk=208) CREATININE (BEAKER) (test 0.73 mg/dL 0.57-1.25 mdjn=121) GLUCOSE RANDOM (BEAKER) 81 mg/dL 70-105 (test etsc=395) CALCIUM (BEAKER) (test 8.1 mg/dL 8.4-10.2 nnfd=153) EGFR (BEAKER) (test 78 mL/min/1.73 sq m ESTIMATED GFR IS NOT smtp=7269) ACCURATE CREATININE CLEARANCE IN PREDICTING GLOMERULAR FILTRATION RATE. ESTIMATED GFR IS NOT APPLICABLE FOR DIALYSIS PATIENTS. HEPATIC FUNCTION [id number] 07:07:00 Test Item Value Reference Range Comments TOTAL PROTEIN (BEAKER) (test ffev=159) 5.8 gm/dL 6.0-8.3 ALBUMIN (BEAKER) (test uegi=0502) 2.4 g/dL 3.5-5.0 BILIRUBIN TOTAL (BEAKER) (test qaoq=436) 1.0 mg/dL 0.2-1.2 BILIRUBIN DIRECT (BEAKER) (test njlm=822) 0.6 mg/dL 0.1-0.5 ALKALINE PHOSPHATASE (BEAKER) (test xjsw=742) 181 U/L 40-150 AST (SGOT) (BEAKER) (test fgrn=484) 39 U/L 5-34 ALT (SGPT) (BEAKER) (test tbfh=039) 15 U/L 6-55 PROTHROMBIN [id number] 06:54:00 Test Item Value Reference Range Comments PROTIME (BEAKER) (test amra=172) 18.2 seconds 11.7-14.7 INR (BEAKER) (test wjwv=018) 1.5 <=5.9 RECOMMENDED COUMADIN/WARFARIN INR THERAPY RANGESSTANDARD DOSE: 2.0 - 3.0 Includes: PROPHYLAXIS forvenous thrombosis, systemic embolization; TREATMENT for venous thrombosis and/or pulmonary embolus.HIGH RISK: Target INR is 2.5-3.5 for patients with mechanical heart valves.CBC W/PLT COUNT & AUTO [id number] 06:46:00 Test Item Value Reference Range Comments WHITE BLOOD CELL COUNT (BEAKER) (test ketv=793) 5.9 K/ L 3.5-10.5 RED BLOOD CELL COUNT (BEAKER) (test niln=039) 4.33 M/ L 3.93-5.22 HEMOGLOBIN (BEAKER) (test dgzm=284) 11.4 GM/DL 11.2-15.7 HEMATOCRIT (BEAKER) (test swks=486) 37.2 % 34.1-44.9 MEAN CORPUSCULAR VOLUME (BEAKER) (test wwad=604) 85.9 fL 79.4-94.8 MEAN CORPUSCULAR HEMOGLOBIN (BEAKER) (test 26.3 pg 25.6-32.2 edav=862) MEAN CORPUSCULAR HEMOGLOBIN CONC (BEAKER) (test 30.6 GM/DL 32.2-35.5 vrtv=961) RED CELL DISTRIBUTION WIDTH (BEAKER) (test 18.8 % 11.7-14.4 euwm=309) PLATELET COUNT (BEAKER) (test hehl=357) 150 K/CU MM 150-450 MEAN PLATELET VOLUME (BEAKER) (test sbwm=289) 11.2 fL 9.4-12.3 NUCLEATED RED BLOOD CELLS (BEAKER) (test 0 /100 WBC 0-0 mvds=246) NEUTROPHILS RELATIVE PERCENT (BEAKER) (test 58 % hasg=383) LYMPHOCYTES RELATIVE PERCENT (BEAKER) (test 29 % cyep=320) MONOCYTES RELATIVE PERCENT (BEAKER) (test 8 % aupa=575) EOSINOPHILS RELATIVE PERCENT (BEAKER) (test 4 % megf=158) BASOPHILS RELATIVE PERCENT (BEAKER) (test 2 % sklj=102) NEUTROPHILS ABSOLUTE COUNT (BEAKER) (test 3.42 K/ L 1.56-6.13 brxk=207) LYMPHOCYTES ABSOLUTE COUNT (BEAKER) (test 1.69 K/ L 1.18-3.74 qldy=767) MONOCYTES ABSOLUTE COUNT (BEAKER) (test 0.47 K/ L 0.24-0.36 siff=311) EOSINOPHILS ABSOLUTE COUNT (BEAKER) (test 0.21 K/ L 0.04-0.36 lwfj=299) BASOPHILS ABSOLUTE COUNT (BEAKER) (test 0.10 K/ L 0.01-0.08 tzhr=861) IMMATURE GRANULOCYTES-RELATIVE PERCENT (BEAKER) 0 % 0-1 (test glqn=6031) MR, ABDOMEN, [id number] 10:16:00Referring: Dr. Cristobal Mccallum (Old/new pt.)Include Abdominal VesselsLiver protocolFINAL REPORT MRI of the abdomen with and [...] right hepatic dome has significantly decreased in size,now measuring 3.6 x 3.2 cm, compared to [...] nodes are nonspecific. No ascites. Varices are present.Osseous structures demonstrate degenerative changes. No suspicious bony lesion is identified. In theright breast, there is a 2.5 cm enhancing [...] the right breast may reflect confluent glandular tissue,but appears more prominent compared to the prior exams. Suggest sonographic/mammographic correlationwhen clinically appropriate. Status post cholecystectomy. Mild CBD dilation. Signed: Elli Venegas Verified Date/Time: 01/23/2018 10:16:08 Reading Location: [address] Radiology Reading Room Electronically signed by: ELLI VENEGAS M.D. on 01/23 10:16 AMANTI-NUCLEAR ANTIBODY (MESSI)2018-01-16 10:59:00 Test Item Value Reference Range Comments ANTI-NUCLEAR ANTIBODY (MESSI) (BEAKER) (test Negative Negative llfz=525) Test performed by IFA method.Test performed by IFA method.HEPATITIS A ANTIBODY, [id number] 15:33:00 Test Item Value Reference Range Comments HEPATITIS A IGM ANTIBODY (BEAKER) (test Nonreactive Nonreactive isvq=310) HEPATITIS A ANTIBODY, [id number] 15:33:00 Test Item Value Reference Range Comments HEPATITIS A IGG ANTIBODY (BEAKER) (test Nonreactive Nonreactive ebjg=6847) HEPATITIS B SURFACE [id number] 15:33:00 Test Item Value Reference Range Comments HEPATITIS B SURFACE ANTIBODY (BEAKER) (test < mIU/mL <8.0 iurd=246) HEPATITIS B SURFACE [id number] 15:32:00 Test Item Value Reference Range Comments HEPATITIS B SURFACE ANTIGEN (2) (BEAKER) (test Nonreactive Nonreactive bjgj=4816) HEPATITIS C [id number] 15:32:00 Test Item Value Reference Range Comments HEPATITIS C ANTIBODY (BEAKER) (test rrsr=742) Nonreactive Nonreactive HEPATITIS B CORE ANTIBODY, [id number] 15:32:00 Test Item Value Reference Range Comments HEPATITIS B CORE TOTAL ANTIBODY (BEAKER) (test Nonreactive Nonreactive drpa=082) CARCINOEMBRYONIC ANTIGEN (CEA)2018-01-15 13:34:00 Test Item Value Reference Range Comments CARCINOEMBRYONIC ANTIGEN (BEAKER) (test nkem=732) 1.6 ng/mL 0.0-5.0 [id number] 13:34:00 Test Item Value Reference Range Comments FERRITIN (BEAKER) (test whou=951) 33 ng/mL 5-275 ALPHA FETOPROTEIN (AFP), TUMOR [id number] 13:34:00 Test Item Value Reference Range Comments ALPHA-FETOPROTEIN (BEAKER) (test stwt=6502) 3.4 ng/mL <10.0 HEPATIC FUNCTION [id number] 13:14:00 Test Item Value Reference Range Comments TOTAL PROTEIN (BEAKER) (test rmij=032) 7.7 gm/dL 6.0-8.3 ALBUMIN (BEAKER) (test wkzv=0534) 3.5 g/dL 3.5-5.0 BILIRUBIN TOTAL (BEAKER) (test upev=801) 1.2 mg/dL 0.2-1.2 BILIRUBIN DIRECT (BEAKER) (test cazo=172) 0.6 mg/dL 0.1-0.5 ALKALINE PHOSPHATASE (BEAKER) (test zpnd=147) 136 U/L 40-150 AST (SGOT) (BEAKER) (test gjgz=462) 46 U/L 5-34 ALT (SGPT) (BEAKER) (test unux=944) 18 U/L 6-55 BASIC METABOLIC [id number] 13:14:00 Test Item Value Reference Range Comments SODIUM (BEAKER) (test 142 meq/L 136-145 mvla=934) POTASSIUM (BEAKER) (test 3.5 meq/L 3.5-5.1 xbos=236) CHLORIDE (BEAKER) (test 99 meq/L 98-107 ailw=126) CO2 (BEAKER) (test 31 meq/L 22-29 mwdm=755) BLOOD UREA NITROGEN 14 mg/dL 7-21 (BEAKER) (test uzei=413) CREATININE (BEAKER) (test 0.96 mg/dL 0.57-1.25 plcu=838) GLUCOSE RANDOM (BEAKER) 161 mg/dL 70-105 (test zkys=203) CALCIUM (BEAKER) (test 9.0 mg/dL 8.4-10.2 syjm=516) EGFR (BEAKER) (test 57 mL/min/1.73 sq m ESTIMATED GFR IS NOT bcds=3695) ACCURATE CREATININE CLEARANCE IN PREDICTING GLOMERULAR FILTRATION RATE. ESTIMATED GFR IS NOT APPLICABLE FOR DIALYSIS PATIENTS. GAMMA GLUTAMYL TRANSFERASE (GGT)2018-01-15 13:14:00 Test Item Value Reference Range Comments GAMMA GLUTAMYL TRANSFERASE (BEAKER) (test yunp=922) 130 U/L 9-64 IRON, TIBC, % SAT. (WITHOUT FERRITIN)2018-01-15 13:12:00 Test Item Value Reference Range Comments IRON (BEAKER) (test uric=323) 41 ug/dL 40-160 TOTAL IRON BINDING CAPACITY (BEAKER) (test 358 ug/dL 250-450 itdm=971) IRON % SATURATION (2) (BEAKER) (test ynra=0646) 11 % 20-55 CBC W/PLT COUNT & AUTO [id number] 13:00:00 Test Item Value Reference Range Comments WHITE BLOOD CELL COUNT (BEAKER) (test orde=323) 7.3 K/ L 3.5-10.5 RED BLOOD CELL COUNT (BEAKER) (test ywbg=985) 5.24 M/ L 3.93-5.22 HEMOGLOBIN (BEAKER) (test qhpf=379) 13.2 GM/DL 11.2-15.7 HEMATOCRIT (BEAKER) (test imoe=186) 44.8 % 34.1-44.9 MEAN CORPUSCULAR VOLUME (BEAKER) (test sbgh=441) 85.5 fL 79.4-94.8 MEAN CORPUSCULAR HEMOGLOBIN (BEAKER) (test 25.2 pg 25.6-32.2 mauf=647) MEAN CORPUSCULAR HEMOGLOBIN CONC (BEAKER) (test 29.5 GM/DL 32.2-35.5 wabw=383) RED CELL DISTRIBUTION WIDTH (BEAKER) (test 16.3 % 11.7-14.4 jfbu=579) PLATELET COUNT (BEAKER) (test uhlv=027) 177 K/CU MM 150-450 MEAN PLATELET VOLUME (BEAKER) (test akgl=288) 12.4 fL 9.4-12.3 NUCLEATED RED BLOOD CELLS (BEAKER) (test 0 /100 WBC 0-0 dxvr=752) NEUTROPHILS RELATIVE PERCENT (BEAKER) (test 65 % bbek=795) LYMPHOCYTES RELATIVE PERCENT (BEAKER) (test 24 % yffa=664) MONOCYTES RELATIVE PERCENT (BEAKER) (test 7 % jcqz=609) EOSINOPHILS RELATIVE PERCENT (BEAKER) (test 2 % jptx=671) BASOPHILS RELATIVE PERCENT (BEAKER) (test 2 % obym=249) NEUTROPHILS ABSOLUTE COUNT (BEAKER) (test 4.78 K/ L 1.56-6.13 agpu=709) LYMPHOCYTES ABSOLUTE COUNT (BEAKER) (test 1.73 K/ L 1.18-3.74 xixv=861) MONOCYTES ABSOLUTE COUNT (BEAKER) (test 0.54 K/ L 0.24-0.36 qren=495) EOSINOPHILS ABSOLUTE COUNT (BEAKER) (test 0.15 K/ L 0.04-0.36 ftzc=338) BASOPHILS ABSOLUTE COUNT (BEAKER) (test 0.11 K/ L 0.01-0.08 lnzi=358) IMMATURE GRANULOCYTES-RELATIVE PERCENT (BEAKER) 0 % 0-1 (test watc=8433) PROTHROMBIN [id number] 12:59:00 Test Item Value Reference Range Comments PROTIME (BEAKER) (test fiij=727) 16.8 seconds 11.7-14.7 INR (BEAKER) (test sotb=635) 1.4 <=5.9 RECOMMENDED COUMADIN/WARFARIN INR THERAPY RANGESSTANDARD DOSE: 2.0 - 3.0 Includes: PROPHYLAXIS forvenous thrombosis, systemic embolization; TREATMENT for venous thrombosis and/or pulmonary embolus.HIGH RISK: Target INR is 2.5-3.5 for patients with mechanical heart valves.CULTURE, [id number] 05:41: 00Specimen: Urine SpecimensCollected: 12/30/2017 14:32 Status: [...] Tigecycline <=0.12 S Vancomycin 1 SURINALYSIS WITH [id number] 15:15:00 Test Item Value Reference Range Comments Color (test code=UCOLR) Yellow Clarity (test code=UCLAR) CLEAR Glucose (test code=UGLUC) NEGATIVE NEGATIVE Bilirubin (test code=UBILI) SMALL NEGATIVE Ketones (test code=UKET) NEGATIVE NEGATIVE Specific [place] (test code=USPGR) 1.025 1.005-1.030 Blood (test code=UBLD) TRACE-LYSED NEGATIVE PH (test code=UPH) 6.0 4.5-8.0 Protein (test code=UPROT) TRACE NEGATIVE Urobilinogen (test code=U UROB) 1.0 >0.2 Nitrite (test code=UNITR) NEGATIVE NEGATIVE Leukocyte Esterase (test code=ULEUK) NEGATIVE NEGATIVE WBC (test code=WBCUR) 20-30 0-5 Epithial Cells (test code=U EPI) 0-5 0-10 Bacteria (test code=UBACT) 2+ None Seen,Trace [id number] 15:03:00 Test Item Value Reference Range Comments [...] mL/min/1.73m\\S\\2 EGFR if Non- >60 Estimated Glomerular [place] (test mL/min/1.73m\\S\\2 Filtration Rate (eGFR) code=EGFRNA) Reference [...] and management of chronic kidney failure. CULTURE, [id number] 08:45:00Specimen: BloodCollected: 11/28/2017 23:11 Status: Final Last Updated: 12/04/2017 08:38 Culture Result (Final) (Final ) No Growth After 5 DaysCULTURE, [id number] 08:41:00Specimen: BloodCollected: 11/28/2017 23:11 Status: Final Last Updated: 12/04/2017 08: 38 Culture Result (Final) (Final) No Growth After 5 DaysCULTURE, [id number] 06:21:00Specimen: Urine SpecimensCollected: 11/28/2017 16:22 Status: [...] <=1 S Trimeth/Sulfa <=20 S ESBL Positive [id number] 05:36:00 Test Item Value Reference Range [...] mL/min/1.73m\\S\\2 EGFR if Non- >60 Estimated Glomerular [place] (test mL/min/1.73m\\S\\2 Filtration Rate (eGFR) code=EGFRNA) Reference [...] of chronic kidney failure. CBC WITH AUTO [id number] 05:28:00 Test Item Value Reference Range Comments [...] 1.0-3.0 IG% (test code=IG%) 0.3 % 0.0-0.4 [id number] 06:44:00 Test Item Value Reference Range Comments [...] mL/min/1.73m\\S\\2 EGFR if Non- >60 Estimated Glomerular [place] (test mL/min/1.73m\\S\\2 Filtration Rate (eGFR) code=EGFRNA) Reference Intervals Decision Points for 18 years and older and average body mass: >=60 Does not exclude kidney disease. 30 - 59 Suggests moderate chronic kidney disease and indicates the need for further investigation including assessment of proteinuria and cardiovascular factors. < 30 Usually indicates a need for referral for assessment and management of chronic kidney failure. [id number] 15:54:00 Test Item Value Reference Range Comments Potassium (test code=K) 4.2 mmol/l 3.5-5.0 [id number] 06:19:00 Test Item Value Reference Range Comments [...] mL/min/1.73m\\S\\2 EGFR if Non- >60 Estimated Glomerular [place] (test mL/min/1.73m\\S\\2 Filtration Rate (eGFR) code=EGFRNA) Reference [...] of chronic kidney failure. CBC WITH AUTO [id number] 05:53:00 Test Item Value Reference Range Comments [...] 1.0-3.0 IG% (test code=IG%) 0.2 % 0.0-0.4 [id number] 10:18:00 Test Item Value Reference Range Comments Potassium (test code=K) 4.0 mmol/l 3.5-5.0 [id number] 05:50:00 Test Item Value Reference Range Comments [...] mL/min/1.73m\\S\\2 EGFR if Non- >60 Estimated Glomerular [place] (test mL/min/1.73m\\S\\2 Filtration Rate (eGFR) code=EGFRNA) Reference [...] of chronic kidney failure. CBC WITH AUTO [id number] 05:30:00 Test Item Value Reference Range Comments [...] code=IG%) 0.2 % 0.0-0.4 HEPATITIS PANEL (AMA [id number])2017-11-30 14:08:00 Test Item Value Reference Range Comments [...] Indirect Bilirubin (test code=IBIL) 0.4 mg/dl 0.0-1.1 [id number] 08:39:00 Test Item Value Reference Range Comments Potassium (test code=K) 3.9 mmol/l 3.5-5.0 [id number] 02:39:00 Test Item Value Reference Range Comments Potassium (test code=K) 3.8 mmol/l 3.5-5.0 [id number] 19:48:00 Test Item Value Reference Range Comments Potassium (test code=K) 3.4 mmol/l 3.5-5.0 4 hour post [id number] 14:17:00 Test Item Value Reference Range Comments Potassium (test code=K) 3.0 mmol/l 3.5-5.0 [id number] 03:25:00 Test Item Value Reference Range Comments [...] mL/min/1.73m\\S\\2 EGFR if Non- 58 Estimated Glomerular [place] (test mL/min/1.73m\\S\\2 Filtration Rate (eGFR) code=EGFRNA) Reference [...] values were called to JAREK MUNGUIARN/MS@0325 by [id number] on 2017 03:25 AM. Resultswere read back by JAREK MUNGUIA,RN/MS@0325.[id number] -[id number] 03:22:00 Test Item Value Reference Range Comments Magnesium (test code=MG) 1.4 mg/dl 1.6-2.3 CBC WITH AUTO [id number] 03:05:00 Test Item Value Reference Range Comments [...] (test code=IG%) 0.1 % 0.0-0.4 CT ABDOMEN/PELVIS [id number] 17:36:10EXAM: CT Abdomen and Pelvis WITH contrastINDICATION: lower abd [id number]: 12/05/2016TECHNIQUE: Abdomen and pelvis were scanned utilizing [...] By: Adithya CHAPMAN: 11/28/2017 17 :36URINALYSIS WITH [id number] 16:11:00 Test Item Value Reference Range Comments Color (test code=UCOLR) YELLOW Clarity (test code=UCLAR) SL CLOUDY Glucose (test code=UGLUC) NEGATIVE NEGATIVE Bilirubin (test code=UBILI) SMALL NEGATIVE Ketones (test code=UKET) NEGATIVE NEGATIVE Specific [place] (test code=USPGR) 1.015 1.005-1.030 Blood (test code=UBLD) [...] (test code=URCRYS) Trace Amorphous Sediment None Seen [id number] 16:04:00 Test Item Value Reference Range Comments [...] mL/min/1.73m\\S\\2 EGFR if Non- 52 Estimated Glomerular [place] (test mL/min/1.73m\\S\\2 Filtration Rate (eGFR) code=EGFRNA) Reference [...] Critical values were called to Loly/ER by [id number] on 11/28/2017 16:04 PM. Results were not read back.AMYLASE, [id number] 16:04:00 Test Item Value Reference Range Comments Amylase (test code=AMYL) 68 U/L 12-103 LIPASE, [id number] 16:04:00 Test Item Value Reference Range Comments Lipase (test code=LIPA) 155 U/L 8-223 CBC WITH AUTO [id number] 15:46:00 Test Item Value Reference Range Comments [...] 1.0-3.0 IG% (test code=IG%) 0.2 % 0.0-0.4 [id number] 08:10:00 Test Item Value Reference Range Comments CPK (test code=CPK) 23 U/L 30-135 [id number] 08:10:00 Test Item Value Reference Range Comments CKMB (test code=CKMB) <0.22 ng/ml 0.00-2.36 TROPONIN-I [id number] 08:10:00 Test Item Value Reference Range Comments Troponin-I (test <0.012 ng/ml 0.000-0.034 The 99th Percentile URL is 0.034 code=TROP) ng/mL. The Joint Society of Cardiology/[place] [employer] (ESC/ACC) and the National [...] first 24 hours after the clinical event. [id number] 07:52:00 Test Item Value Reference Range Comments CPK (test code=CPK) 24 U/L 30-135 [id number] 07:40:00 Test Item Value Reference Range Comments [...] mL/min/1.73m\\S\\2 EGFR if Non- >60 Estimated Glomerular [place] (test mL/min/1.73m\\S\\2 Filtration Rate (eGFR) code=EGFRNA) Reference [...] chronic kidney failure. XR CHEST AP/PA 1 [id number] 05:15:58EXAMINATION: XR CHEST AP/PA 1 VIEWINDICATION: shortness [...] 5:09 AMDictated By: Zuri GIVENS: 11/13/2017 05:15TROPONIN-I [id number] 04:17 :00 Test Item Value Reference Range Comments Troponin-I (test <0.012 ng/ml 0.000-0.034 The 99th Percentile URL is 0.034 code=TROP) ng/mL. The Joint Society of Cardiology/[place] [employer] (ESC/ACC) and the National [...] first 24 hours after the clinical event. [id number] 04:16:00 Test Item Value Reference Range Comments CKMB (test code=CKMB) <0.22 ng/ml 0.00-2.36 PRO-BNP(B-Type Natriuretic Peptide)2017-11-13 04:12:00 Test Item Value Reference Range Comments Pro-BNP(B-Peptide) (test code=PROBNP) 71 pg/ml 0-125 CBC WITH AUTO [id number] 03:47:00 Test Item Value Reference Range Comments [...] IG% (test code=IG%) 0.2 % 0.0-0.4 CULTURE, [id number] 10:01:00Specimen: Urine SpecimensCollected: 12/20/2016 16:19 Status: Final [...] S Trimeth/Sulfa <=10 S Vancomycin 0.5SURINALYSIS WITH [id number] 17:55:00 Test Item Value Reference Range Comments Color (test code=UCOLR) Lt. Yellow Clarity (test code=UCLAR) Clear Glucose (test code=UGLUC) NEGATIVE NEGATIVE Bilirubin (test code=UBILI) NEGATIVE NEGATIVE Ketones (test code=UKET) NEGATIVE NEGATIVE Specific [place] (test code=USPGR) 1.010 1.005-1.030 Blood (test code=UBLD) [...] Seen Bacteria (test code=UBACT) 2+ None Seen,Trace [id number] 15:30:00 Test Item Value Reference Range Comments Potassium (test code=K) 5.0 mmol/l 3.5-5.0 BLOOD UREA NTIROGEN (BUN)2016-12-07 08:29:00 Test Item Value Reference Range Comments BUN (test code=BUN) 22.0 mg/dl 6.0-17.0 CREATININE, [id number] 08:29:00 Test Item Value Reference Range Comments Creatinine (test 1.2 mg/dl 0.4-1.2 code=CREA) EGFR if 57 (test code=EGFRAA) mL/min/1.73m\\S\\2 EGFR if Non- 47 Estimated Glomerular [place] (test mL/min/1.73m\\S\\2 Filtration Rate (eGFR) code=EGFRNA) Reference Intervals Decision Points for 18 years and older and average body mass: >=60 Does not exclude kidney disease. 30 - 59 Suggests moderate chronic kidney disease and indicates the need for further investigation including assessment of proteinuria and cardiovascular factors. < 30 Usually indicates a need for referral for assessment and management of chronic kidney failure. [id number] 06:09:00 Test Item Value Reference Range Comments Potassium (test code=K) 3.3 mmol/l 3.5-5.0 [id number] 14:14:00 Test Item Value Reference Range Comments Magnesium (test code=MG) 1.5 mg/dl 1.6-2.3 [id number] 11:48:00 Test Item Value Reference Range Comments Potassium (test code=K) 2.8 mmol/l 3.5-5.0 Critical values were called to Karina Norton RN 12/06/16@1148 by [id number] on 12/06 11:48 AM. Results were read back by Karina Norton RN 12/06/16@1148.[id number] 06:11:00 Test Item Value Reference Range Comments CKMB (test code=CKMB) <0.22 ng/ml 0.00-2.36 TROPONIN-I [id number] 06:11:00 Test Item Value Reference Range Comments Troponin-I (test <0.012 ng/ml 0.000-0.034 The 99th Percentile URL is 0.034 code=TROP) ng/mL. The Joint Society of Cardiology/[place] [employer] (ESC/ACC) and the National [...] first 24 hours after the clinical event. [id number] 06:07:00 Test Item Value Reference Range Comments [...] mL/min/1.73m\\S\\2 EGFR if Non- >60 Estimated Glomerular [place] (test mL/min/1.73m\\S\\2 Filtration Rate (eGFR) code=EGFRNA) Reference [...] were called to BIANCA PAZ RN by [id number] on 12/06/2016 06:07 AM. Results were read back by BIANCA PAZ RN.CBC WITH AUTO [id number] 05:26 :00 Test Item Value Reference Range [...] Auto (test code=NRBC_AUTO) 0 /100WBC 0-0 D-DIMER [id number] 22:33:00 Test Item Value Reference Range Comments [...] and a low probability of thromboembolic disease. [id number] 22:18:00 Test Item Value Reference Range Comments CKMB (test code=CKMB) <0.22 ng/ml 0.00-2.37 TROPONIN-I [id number] 22:18:00 Test Item Value Reference Range Comments Troponin-I (test <0.012 ng/ml 0.000-0.034 The 99th Percentile URL is 0.034 code=TROP) ng/mL. The Joint Society of Cardiology/[place] [employer] (ESC/ACC) and the National [...] first 24 hours after the clinical event. [id number] 14:13:00 Test Item Value Reference Range Comments CKMB (test code=CKMB) 0.22 ng/ml 0.00-2.37 PRO-BNP(B-Type Natriuretic Peptide)2016-12-05 14:13:00 Test Item Value Reference Range Comments Pro-BNP(B-Peptide) (test code=PROBNP) 71 pg/ml 0-125 TROPONIN-I [id number] 14:13:00 Test Item Value Reference Range Comments Troponin-I (test 0.012 ng/ml 0.000-0.034 The 99th Percentile URL is 0.034 code=TROP) ng/mL. The Joint Society of Cardiology/[place] [employer] (ESC/ACC) and the National [...] 24 hours after the clinical event. AMYLASE, [id number] 14:00:00 Test Item Value Reference Range Comments Amylase (test code=AMYL) 68 U/L 12-103 LIPASE, [id number] 14:00:00 Test Item Value Reference Range Comments Lipase (test code=LIPA) 121 U/L 8-223 [id number] 14:00:00 Test Item Value Reference Range Comments [...] mL/min/1.73m\\S\\2 EGFR if Non- >60 Estimated Glomerular [place] (test mL/min/1.73m\\S\\2 Filtration Rate (eGFR) code=EGFRNA) Reference [...] management of chronic kidney failure. URINALYSIS WITH [id number] 13:49:00 Test Item Value Reference Range Comments Color (test code=UCOLR) Lt. Yellow Clarity (test code=UCLAR) CLEAR Glucose (test code=UGLUC) NEGATIVE NEGATIVE Bilirubin (test code=UBILI) NEGATIVE NEGATIVE Ketones (test code=UKET) NEGATIVE NEGATIVE Specific [place] (test code=USPGR) <=1.005 1.005-1.030 Blood (test code=UBLD) [...]
[2018-04-27] MEDS ORDERED: ONDANSETRON 4 MG/2 ML VIAL ONE (16:30)
[2018-04-27] MEDS ORDERED: NA CHLORIDE 0.9% 1,000 ML ONE ×2 (16:30→18:04)
[2018-04-27 16:38] LABS: Absolute Lymphocytes (CBC) 0.9 K/uL (0.7-4.9); Absolute Monocytes 0.2 K/uL (0.1-1.3); Absolute Neutrophil 2.8 K/uL (1.8-8.0); Basophils % 0.3 % (0-1.3); Eosinophils % 0.7 % (0-4.4); Hematocrit 37.4 % (36.0-45.0); Lymphocytes % 22.5 % (15.3-44.8); MCH 27.5 pg (27.0-35.0); MCV 83.4 fL (80-100); MPV 8.4 fL (7.6-11.3); Monocytes % 5.9 % (3.3-12.3); RBC Red Blood Cell Count 4.49 M/uL (3.86-4.86)
[2018-04-27 17:10] LABS: Albumin 2.1 g/dL (3.4-5.0); Bilirubin Direct 0.4 mg/dL (0-0.2); Bilirubin Total 0.9 mg/dL (0.2-1.0); Protein, Total 6.7 g/dL (6.4-8.2)
[2018-04-27 17:13] LABS: Potassium 2.7 mmol/L (3.5-5.1)
[2018-04-27] MEDS ORDERED: POTASSIUM CL SA 10 MEQ TAB PO ONE (18:17)
[2018-04-27] MEDS ORDERED: NS KCL 20MEQ 1,000 ML IV ONE (18:17)
[2018-04-27 18:35] LABS: Urine Blood NEGATIVE (NEG); Urine Glucose NEGATIVE (NEG); Urine Protein TRACE (NEG)
[2018-04-27] MEDS ORDERED: KCL 20 MEQ/100 mL IVPB 20 MEQ/100 ML BAG IV ONE (18:35)
--- NOTE | 2018-04-27 18:57 | RAD REPORT ---
EXAM DESCRIPTION: CT - Abdomen Pelvis Wo Contrast - 04/27/2018 6:47 pm CLINICAL HISTORY: Abdominal pain. no IV or oral contrast COMPARISON: Abdomen Pelvis W Contrast dated 03/02/2018 TECHNIQUE: CT imaging of the abdomen and pelvis was performed without contrast. Solid organ, bowel a nd vascular assessment is limited due to lack of IV and oral contrast. All CT scans are performed using dose optimization technique as appropriate and may include automated exposure control or mA/KV adjustment according to patient size. FINDINGS: Small bilateral pleural effusions are noted, slightly greater on the left. Linear atelecta sis is present in the lung bases. Prominent liver cirrhosis is noted with partially calcified mass in the superior right lobe again not ed. Poorly defined area of diminished density is seen in the inferior right lobe, similar to prior st udy. The gallbladder surgically absent. The spleen, pancreas, adrenal glands and kidneys show no acut e process.Generalized anasarca is seen. Mild ascites is noted. No bowel obstruction, free air or abscess. The appendix is not identified as a discrete structure, however, no secondary findings of appendicitis are identified. The osseous structures are within normal limits. IMPRESSION: Mild generalized fluid retention pattern is seen with small bilateral pleural effusions, mild ascites and anasarca. Prominent liver cirrhosis. A limited non-contrast examination was performed as detailed.
[2018-04-27 20:14] LABS: Protime INR 1.42
--- NOTE | 2018-04-27 21:10 | RAD REPORT ---
EXAM DESCRIPTION: RAD - Chest Single View - 04/27/2018 8:57 pm CLINICAL HISTORY: SOB Chest pain. COMPARISON: Chest Single View dated 03/02/2018; Chest Single View dated 02/02/2018Chest Single View da shalini 03/02/2018; Chest Single View dated 02/02/2018; Abdomen Pelvis Wo Contrast dated 04/27/2018 FINDINGS: Portable technique limits examination quality. Bibasilar pulmonary opacities are present with small pleural effusions suspected, greater on the left . The heart is mildly prominent size. Osteopenia is seen with right humeral prosthesis present.
--- NOTE | 2018-04-27 21:23 | EDPHYS ---
Physician Documentation [facility] Name: Carina Bal Age: 72 yrs Sex: Female : 1945 Arrival Date: 04/27/2018 Time: 16:03 Bed 8 Private MD: Bryant Bruno HPI: 04/27 17:57 This 72 yrs old Female presents to ER via EMS with complaints of jr8 Nausea/Vomiting/Diarrhea. 17:57 The patient presents to the emergency department with nausea, vomiting, diarrhea. jr8 Onset: The symptoms/episode began/occurred acutely, 1 week(s) ago. Possible causes: chemotherapy. The symptoms are aggravated by nothing. The symptoms are alleviated by nothing. Associated signs and symptoms: Pertinent positives: shortness of breath . Severity of symptoms: At their worst the symptoms were moderate in the emergency department the symptoms are unchanged. The patient has not experienced similar symptoms in the past. The patient has been recently seen by a physician:. 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 Stated that since then has had diarrhea and now on/off vomiting. Patient noted to have distension of abdomen. Stated that she had it drained a couple of weeks ago but now getting worse. Patient 89% off of oxygen . Historical: - Allergies: 16:15 No Known Allergies; bp - Home Meds: 16:15 atenolol 50 mg Oral tab 1 tab once daily [Active]; [place] 5-325 mg Oral tab 1 tab every bp 6 hours [Active]; gabapentin 300 mg oral cap 1 cap 3 times per day [Active]; paroxetine HCl 10 mg oral tab 1 tab once daily [Active]; sucralfate 1 gram Oral tab 1 tab 4 times per day [Active]; aspirin 81 mg Oral chew 1 tab once daily [Active]; furosemide 40 mg Oral tab 1 tab 2 times per day [Active]; levothyroxine 137 mcg tab 1 tab once daily [Active]; anastrozole 1 mg oral tab 1 tab once daily [Active]; capecitabine 500 mg oral tab [Active]; ondansetron HCl 8 mg Oral tab 1 tab every 8 hours [Active]; magnesium oxide 400 mg Oral tab 400 mg daily [Active]; - PMHx: 16:15 Cancer, Breast; acid reflux; chronic uti; fluid retention; Hyperlipidemia; bp Hypertension; Thyroid problem; neuropathy; Liver Mass; - Immunization history:: Adult Immunizations up to date. - Social history:: Smoking status: Patient/guardian denies using tobacco. - Ebola Screening: : Patient negative for fever greater than or equal to 101.5 degrees Fahrenheit, and additional compatible Ebola Virus Disease symptoms Patient denies exposure to infectious person Patient denies travel to an Ebola-affected area in the 21 days before illness onset No symptoms or risks identified at this time. ROS: 17:57 Eyes: Negative for injury, pain, redness, and discharge, ENT: Negative for injury, jr8 pain, and discharge, Neck: Negative for injury, pain, and swelling, Cardiovascular: Negative for chest pain, palpitations, and edema, Respiratory: Negative for shortness of breath, cough, wheezing, and pleuritic chest pain, Back: Negative for injury and pain, MS/Extremity: Negative for injury and deformity, Skin: Negative for injury, rash, and discoloration, Neuro: Negative for headache, weakness, numbness, tingling, and seizure. 17:57 Abdomen/GI: Positive for nausea, vomiting, and diarrhea, abdominal distension, Negative for abdominal pain, anorexia, dysphagia, hematemesis, black/tarry stool, rectal pain, rectal bleeding, bowel incontinence, flatulence. Exam: 18:12 Eyes: Pupils equal round and reactive to light, extra-ocular motions intact. Lids and jr8 lashes normal. Conjunctiva and sclera are non-icteric and not injected. Cornea within normal limits. Periorbital areas with no swelling, redness, or edema. ENT: Nares patent. No nasal discharge, no septal abnormalities noted. Tympanic membranes are normal and external auditory canals are clear. Oropharynx with no redness, swelling, or masses, exudates, or evidence of obstruction, uvula midline. Mucous membranes moist. Neck: Trachea midline, no thyromegaly or masses palpated, and no cervical lymphadenopathy. Supple, full range of motion without nuchal rigidity, or vertebral point tenderness. No Meningismus. Cardiovascular: Regular rate and rhythm with a normal S1 and S2. No gallops, murmurs, or rubs. Normal PMI, no JVD. No pulse deficits. Respiratory: Lungs have equal breath sounds bilaterally, clear to auscultation and percussion. No rales, rhonchi or wheezes noted. No increased work of breathing, no retractions or nasal flaring. Back: No spinal tenderness. No costovertebral tenderness. Full range of motion. Skin: Warm, dry with normal turgor. Normal color with no rashes, no lesions, and no evidence of cellulitis. MS/ Extremity: Pulses equal, no cyanosis. Neurovascular intact. Full, normal range of motion. Neuro: Awake and alert, GCS 15, oriented to person, place, time, and situation. Cranial nerves II-XII grossly intact. Motor strength 5/5 in all extremities. Sensory grossly intact. Cerebellar exam normal. Normal gait. 18:12 Abdomen/GI: Inspection: distension, that is moderate, Bowel sounds: active, all quadrants, Palpation: soft, in all quadrants, mild abdominal tenderness, in the right upper quadrant, Indicators: McBurney's point is not tender, Castellon's sign is negative, Rovsing's sign is negative. Vital Signs: 16:10 BP 142 / 82; Pulse 91; Resp 14; Temp 99; Pulse Ox 96% ; Weight 109.32 kg; Height 5 ft. bp 7 in. (170.18 cm); 17:10 BP 138 / 71; Pulse 86; Resp 15; Pulse Ox 96% ; bp 17:12 BP 148 / 62; Pulse 80; Resp 15; Temp 97.9; Pulse Ox 95% on 2 lpm NC; Pain 0/10; ch 18:02 BP 135 / 76; Pulse 91; Resp 24; Temp 98.1; Pulse Ox 89% on R/A; Pain 4/10; ch 18:36 BP 125 / 63; Pulse 83; Resp 11; Pulse Ox 95% ; bp 19:20 BP 141 / 77; Pulse 80; Resp 12 S; Temp 97.7(O); Pulse Ox 96% on 2 lpm NC; cc3 20:30 BP 131 / 96; Pulse 82; Resp 13; Pulse Ox 100% on 2 lpm NC; cc3 21:30 BP 130 / 75; Pulse 83; Resp 15 S; Pulse Ox 97% on 2 lpm NC; cc3 22:37 BP 127 / 75; Pulse 82; Resp 14; Pulse Ox 97% on 2 lpm NC; cc3 16:10 Body Mass Index 37.75 (109.32 kg, 170.18 cm) bp MDM: 16:08 Patient medically screened. [facility] 21:20 Data reviewed: vital signs, nurses notes. Counseling: I had a detailed discussion with nancy the patient and/or guardian regarding: the historical points, exam findings, and any diagnostic results supporting the discharge/admit diagnosis, radiology results. ED course: I discussed the patient with Dr. Palacios whom accepted admission. . 04/27 16:09 Order name: Basic Metabolic Panel [facility] 04/27 16:09 Order name: CBC with Diff [facility] 04/27 16:09 Order name: Creatinine for Radiology [facility] 04/27 16:09 Order name: Hepatic Function [facility] 04/27 16:09 Order name: Lipase [facility] 04/27 16:40 Order name: CBC with Automated Diff; Complete Time: 16:45 EDMS 04/27 17:00 Order name: Creatinine (Radiology Only); Complete Time: 17:41 EDSC 04/27 17:14 Order name: Basic Metabolic Panel; Complete Time: 17:41 EDMS 04/27 17:14 Order name: Liver (Hepatic) Function; Complete Time: 17:41 EDMS 04/27 17:14 Order name: Lipase; Complete Time: 17:41 EDMS 04/27 18:00 Order name: Urine Dipstick--Ancillary (enter results) 04/27 18:35 Order name: Urine Dipstick-Ancillary; Complete Time: 18:45 EDSC 04/27 19:41 Order name: PT-INR [facility] 04/27 20:25 Order name: Protime (+INR); Complete Time: 20:27 [facility] 04/27 16:09 Order name: IV Saline Lock; Complete Time: 16:39 [facility] 04/27 16:09 Order name: Labs collected and sent; Complete Time: 16:39 [facility] 04/27 16:09 Order name: Urine Dipstick-Ancillary (obtain specimen); Complete Time: 18:51 [facility] 04/27 18:11 Order name: CT Abd/Pelvis - Without Cont [facility] 04/27 18:58 Order name: CT; Complete Time: 19:03 [facility] 04/27 20:34 Order name: Chest Single View XRAY [facility] 04/27 21:25 Order name: RAD; Complete Time: 21:28 EDMS Administered Medications: 16:39 Drug: Zofran 8 mg Route: IVP; Site: left forearm; ch 17:07 Follow up: Response: Nausea is decreased bp 16:39 Drug: NS 0.9% 1000 ml Route: IV; Rate: 1 bolus; Site: left forearm; ch 18:00 Follow up: Response: No adverse reaction; IV Status: Completed infusion; IV Intake: cc3 1000ml 18:15 Drug: Potassium Chloride 20 mEq Route: IV; Rate: calculated rate; Site: left forearm; bp 20:45 Follow up: Response: No adverse reaction; IV Status: Completed infusion; IV Intake: cc3 100ml 18:15 Drug: Potassium Chloride 20 mEq Route: PO; bp 19:15 Follow up: Response: No adverse reaction cc3 21:45 Drug: Rocephin - (cefTRIAXone) 1 grams Route: IVPB; Infused Over: 30 mins; Site: left cc3 forearm; 22:15 Follow up: Response: No adverse reaction; IV Status: Completed infusion; IV Intake: [id number] Disposition: 04/28 06:45 Co-signature as Attending Physician, Bryant Daugherty MD I agree with the assessment and neda plan of care. Disposition: 04/27/18 21:22 Hospitalization ordered by Adri Palacios for Observation. Preliminary diagnosis are Pneumonia, Ascites, Other abdominal pain, Diarrhea, unspecified, Hypokalemia. - Bed requested for Telemetry/MedSurg (Inpatient). - Status is Observation. cc3 - Condition is Stable. - Problem is new. - Symptoms have improved. UTI on Admission? 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 Stated that since then has had diarrhea and now on/off vomiting. jr8 22:30 21:22 Hospitalization Ordered by Adri Palacios MD for Observation. Preliminary ar5 diagnosis is Pneumonia; Ascites; Other abdominal pain; Diarrhea, unspecified; Hypokalemia. Bed requested for Telemetry/MedSurg (Inpatient). Status is Observation. Condition is Stable. Problem is new. Symptoms have improved. UTI on Admission? No. jmm 23:04 22:30 04/27/2018 21:22 Hospitalization Ordered by Adri Palacios MD for Observation. cc3 Preliminary diagnosis is Pneumonia; Ascites; Other abdominal pain; Diarrhea, unspecified; Hypokalemia. Bed requested for Telemetry/MedSurg (Inpatient). Status is Observation. Condition is Stable. Problem is new. Symptoms have improved. UTI on Admission? No. ar5
--- NOTE | 2018-04-27 21:23 | ER ---
Nurse's Notes [facility] Name: Carina Bal Age: 72 yrs Sex: Female : 1945 Arrival Date: 04/27/2018 Time: 16:03 Bed 8 Private MD: Diagnosis: Pneumonia;Ascites;Other abdominal pain;Diarrhea, unspecified;Hypokalemia Presentation: 04/27 16:00 Presenting complaint: EMS states: DIARRHEA x4 DAYS. Transition of care: patient was not bp received from another setting of care. Onset of symptoms was April 23, 2080. Risk Assessment: Do you want to hurt yourself or someone else? Patient reports no desire to harm self or others. Initial Sepsis Screen: Does the patient meet any 2 criteria? No. Patient's initial sepsis screen is negative. Does the patient have a suspected source of infection? No. Patient's initial sepsis screen is negative. Care prior to arrival: None. 16:00 Method Of Arrival: EMS: [facility] 16:00 Acuity: GUY 3 bp Triage Assessment: 16:15 General: Appears in no apparent distress. comfortable, Behavior is calm, cooperative, bp appropriate for age. GI: Reports diarrhea, nausea, vomiting. Historical: - Allergies: 16:15 No Known Allergies; bp - Home Meds: 16:15 atenolol 50 mg Oral tab 1 tab once daily [Active]; [place] 5-325 mg Oral tab 1 tab every bp 6 hours [Active]; gabapentin 300 mg oral cap 1 cap 3 times per day [Active]; paroxetine HCl 10 mg oral tab 1 tab once daily [Active]; sucralfate 1 gram Oral tab 1 tab 4 times per day [Active]; aspirin 81 mg Oral chew 1 tab once daily [Active]; furosemide 40 mg Oral tab 1 tab 2 times per day [Active]; levothyroxine 137 mcg tab 1 tab once daily [Active]; anastrozole 1 mg oral tab 1 tab once daily [Active]; capecitabine 500 mg oral tab [Active]; ondansetron HCl 8 mg Oral tab 1 tab every 8 hours [Active]; magnesium oxide 400 mg Oral tab 400 mg daily [Active]; - PMHx: 16:15 Cancer, Breast; acid reflux; chronic uti; fluid retention; Hyperlipidemia; bp Hypertension; Thyroid problem; neuropathy; Liver Mass; - Immunization history:: Adult Immunizations up to date. - Social history:: Smoking status: Patient/guardian denies using tobacco. - Ebola Screening: : Patient negative for fever greater than or equal to 101.5 degrees Fahrenheit, and additional compatible Ebola Virus Disease symptoms Patient denies exposure to infectious person Patient denies travel to an Ebola-affected area in the 21 days before illness onset No symptoms or risks identified at this time. Screenin:29 Abuse screen: Denies threats or abuse. Denies injuries from another. Nutritional bp screening: No deficits noted. Tuberculosis screening: No symptoms or risk factors identified. Fall Risk None identified. Assessment: 16:35 Reassessment: Patient appears in no apparent distress at this time. Patient and/or ch family updated on plan of care and expected duration. Pain level reassessed. Patient is alert, oriented x 3, equal unlabored respirations, skin warm/dry/pink. General: Appears in no apparent distress. uncomfortable, Behavior is calm, cooperative, appropriate for age. Pain:. 16:39 GI: Abdomen is obese, Bowel sounds present X 4 quads. Abd is soft X 4 quads Abdomen is ch tender to palpation in suprapubic area. Derm: Skin is pale. Musculoskeletal: Circulation, motion, and sensation intact. 17:12 Reassessment: Patient appears in no apparent distress at this time. Patient and/or ch family updated on plan of care and expected duration. Pain level reassessed. Patient is alert, oriented x 3, equal unlabored respirations, skin warm/dry/pink. Patient states feeling better. 18:02 Reassessment: Patient appears in no apparent distress at this time. Patient and/or ch family updated on plan of care and expected duration. Pain level reassessed. oxygen turned off, pt o2 drops to 89%. pt states she just doesn't feel well. pt straight cathed, 100 mL urine obtained. foul smelling, cloudy. pt medicated per orders. jonah notified. Neuro: No deficits noted. Respiratory: Airway is patent Trachea midline Respiratory effort is even, unlabored, Breath sounds are clear bilaterally. 18:07 Reassessment: Patient appears in no apparent distress at this time. pt brief changed, ch pt wiped of diarrhea. 18:37 Reassessment: PT TO CT WITH BUILDING SERVICES ENGINEER, DISPO PENDING. bp 19:25 Reassessment: Patient appears in no apparent distress at this time. report given to cl Irvin and Tamara Perry 19:25 Reassessment: Patient appears in no apparent distress at this time. Patient and/or cc3 family updated on plan of care and expected duration. Pain level reassessed. Patient is alert, oriented x 3, equal unlabored respirations, skin warm/dry/pink. Received this female patient from morning shift as a case of nausea, vomiting, diarrhea. With IV cannula gauge 22 at the left forearm with ongoing IV KCl 20 meq 100 mL at 50 mL/hr and NS 1 liter at 125 mL/hr infusing well. 19:41 Reassessment: New order for PT INR, called lab at extension [phone] to confirm if they cc3 received a blue top tube and the clinical laboratory assistant said they will do it because they received a sample already. 20:24 Reassessment: provider plans to transfer pt to [facility] attempt made to contact ak1 pt's family, Carina Palm(pt niece) at [phone]. 21:22 Reassessment: Patient appears in no apparent distress at this time. Patient and/or cc3 family updated on plan of care and expected duration. Pain level reassessed. Patient is alert, oriented x 3, equal unlabored respirations, skin warm/dry/pink. Patient for admission, awaiting admission orders. 22:35 Reassessment: Patient appears in no apparent distress at this time. Patient and/or cc3 family updated on plan of care and expected duration. Pain level reassessed. Patient is alert, oriented x 3, equal unlabored respirations, skin warm/dry/pink. Room available in 203, report handed over to Naye Feliciano for continuity of care. 23:00 Reassessment: Patient appears in no apparent distress at this time. Patient and/or cc3 family updated on plan of care and expected duration. Pain level reassessed. Patient is alert, oriented x 3, equal unlabored respirations, skin warm/dry/pink. Patient left ER for admission vitally stable by stretcher on oxygen therapy escorted by indoor plant technicianmayra Allison. Vital Signs: 16:10 BP 142 / 82; Pulse 91; Resp 14; Temp 99; Pulse Ox 96% ; Weight 109.32 kg; Height 5 ft. bp 7 in. (170.18 cm); 17:10 BP 138 / 71; Pulse 86; Resp 15; Pulse Ox 96% ; bp 17:12 BP 148 / 62; Pulse 80; Resp 15; Temp 97.9; Pulse Ox 95% on 2 lpm NC; Pain 0/10; ch 18:02 BP 135 / 76; Pulse 91; Resp 24; Temp 98.1; Pulse Ox 89% on R/A; Pain 4/10; ch 18:36 BP 125 / 63; Pulse 83; Resp 11; Pulse Ox 95% ; bp 19:20 BP 141 / 77; Pulse 80; Resp 12 S; Temp 97.7(O); Pulse Ox 96% on 2 lpm NC; cc3 20:30 BP 131 / 96; Pulse 82; Resp 13; Pulse Ox 100% on 2 lpm NC; cc3 21:30 BP 130 / 75; Pulse 83; Resp 15 S; Pulse Ox 97% on 2 lpm NC; cc3 22:37 BP 127 / 75; Pulse 82; Resp 14; Pulse Ox 97% on 2 lpm NC; cc3 16:10 Body Mass Index 37.75 (109.32 kg, 170.18 cm) bp ED Course: 16:00 Inserted saline lock: 22 gauge in left forearm, using aseptic technique. Blood ch collected. 16:03 Patient arrived in ED. bp 16:05 Triage completed. bp 16:08 Jonah Molina PA is PHCP. jr8 16:08 Bryant Daugherty MD is Attending Physician. jr8 16:34 Nkechi Christianson, HEIDI is Primary Nurse. ch 16:35 Arm band placed on left wrist. Patient placed in an exam room, on a stretcher, on pulse ch oximetry. 16:36 No apparent distress. Resting quietly. ch 16:36 No provider procedures requiring assistance completed. ch 16:36 Patient has correct armband on for positive identification. Placed in gown. Bed in low ch position. Call light in reach. Side rails up X 1. Adult w/ patient. Pulse ox on. NIBP on. Warm blanket given. 17:07 Lipase Sent. bp 17:07 Hepatic Function Sent. bp 17:07 Creatinine for Radiology Sent. bp 17:07 CBC with Diff Sent. bp 17:07 Basic Metabolic Panel Sent. bp 18:06 Urine collected: straight cath specimen, cloudy, aaron colored, Amount Returned: 100mL. Straight cath inserted, using sterile technique, 16 Fr. Specimen obtained. Returned aaron urine. Patient tolerated well. 18:23 PHCP role handed off by Jonah Molina PA [facility] 18:23 Saulo Quinn PA is PHCP. [facility] 18:42 Patient moved to [place]. nj 18:46 CT completed. Patient tolerated procedure well. Patient moved back from CT. nm 18:50 CT Abd/Pelvis - Without Cont Sent. 19:47 Brandee Rogel is Primary Nurse. cc3 21:21 Adri Palacios MD is Hospitalizing Provider. [facility] 22:35 Patient admitted, IV remains in place. cc3 Administered Medications: 16:39 Drug: Zofran 8 mg Route: IVP; Site: left forearm; ch 17:07 Follow up: Response: Nausea is decreased bp 16:39 Drug: NS 0.9% 1000 ml Route: IV; Rate: 1 bolus; Site: left forearm; 18:00 Follow up: Response: No adverse reaction; IV Status: Completed infusion; IV Intake: cc3 1000ml 18:15 Drug: Potassium Chloride 20 mEq Route: IV; Rate: calculated rate; Site: left forearm; bp 20:45 Follow up: Response: No adverse reaction; IV Status: Completed infusion; IV Intake: cc3 100ml 18:15 Drug: Potassium Chloride 20 mEq Route: PO; bp 19:15 Follow up: Response: No adverse reaction cc3 21:45 Drug: Rocephin - (cefTRIAXone) 1 grams Route: IVPB; Infused Over: 30 mins; Site: left cc3 forearm; 22:15 Follow up: Response: No adverse reaction; IV Status: Completed infusion; IV Intake: [id number] Intake: 18:00 IV: 1000ml; Total: 1000ml. cc3 20:45 IV: 100ml; Total: 1100ml. cc3 22:15 IV: 50ml; Total: 1150ml. cc3 Outcome: 21:22 Decision to Hospitalize by Provider. [facility] 22:35 Admitted to Med/surg accompanied by tech, via stretcher, room 203, with oxygen, with cc3 chart, Report called to Trinity Feliciano 22:35 Condition: stable 22:35 Instructed on the need for admit, Demonstrated understanding of instructions. 23:04 Patient left the ED. cc3 Signatures: Nkechi Christianson, RN RN Saulo Cook PA PA jmm Roszak, Josh, PA PA jr8 Aaron Hamilton RN RN akYusuf Tsai Brian, RN RN Brandee Ramírez cc3 Corrections: (The following items were deleted from the chart) 16:36 16:15 Pain: Complains of pain in back of head and buttocks bp ch 16:37 16:00 Inserted saline lock: 22 gauge in right forearm, using aseptic technique. Blood ch collected. bp 17:09 05:40 BP 142 / 82; Pulse 91bpm; Resp 14bpm; Pulse Ox 96%; Temp 99F; 109.32 kg; Height 5 bp ft. 7 in.; BMI: 37.7; bp 17:10 16:40 BP 142 / 82; Pulse 91bpm; Resp 14bpm; Pulse Ox 96%; Temp 99F; 109.32 kg; Height 5 bp ft. 7 in.; BMI: 37.7; bp 18:05 17:12 BP 148 / 62; Pulse 80bpm; Resp 15bpm; Pulse Ox 99% RA; Temp 97.9F; Pain 0/10; ch ch 18:07 17:12 Urine collected: straight cath specimen, cloudy, aaron colored, Amount Returned: ch 100mL ch 18:07 17:12 Straight cath inserted, using sterile technique, 16 Fr. Specimen obtained. ch Returned aaron urine. Patient tolerated well. ch
[2018-04-27] MEDS ORDERED: NA CHLORIDE 0.9% 50 ML IV ONE (21:58)
[2018-04-27] MEDS ORDERED: CEFTRIAXONE 1000 MG/VIAL ONE (21:58)
[2018-04-27] MEDS ORDERED: ACETAMINOPHEN 500 MG TAB PO PRN (22:00)
[2018-04-27] MEDS: Levofloxacin500mg IV 500 MG/100 ML BAG IV SCH (22:00)
[2018-04-27] MEDS ORDERED: NA CHLORIDE 0.9% 1,000 ML IV SCH (22:00)
[2018-04-27] MEDS ORDERED: ONDANSETRON 4 MG/2 ML VIAL IV PRN (22:00)
[2018-04-28 06:05] LABS: Albumin 1.9 g/dL (3.4-5.0); Bilirubin Total 0.7 mg/dL (0.2-1.0); Magnesium 1.6 mg/dL (1.8-2.4); Potassium 3.3 mmol/L (3.5-5.1); Protein, Total 5.9 g/dL (6.4-8.2)
[2018-04-28 06:20] LABS: Absolute Monocytes 0.3 K/uL (0.1-1.3); Absolute Neutrophil 1.3 K/uL (1.8-8.0); Basophils % 0.2 % (0-1.3); Eosinophils % 2.7 % (0-4.4); Hematocrit 33.3 % (36.0-45.0); Lymphocytes % 36.8 % (15.3-44.8); MCH 28.3 pg (27.0-35.0); MPV 8.4 fL (7.6-11.3); Monocytes % 11.4 % (3.3-12.3); RBC Red Blood Cell Count 4.02 M/uL (3.86-4.86)
[2018-04-28] MEDS ORDERED: Magnesium Sulfate 2gm IVPB 2 G/50 ML BAG IV ONE (06:39)
[2018-04-28] MEDS ORDERED: POTASSIUM PHOS 30 MM in NA CHLORIDE 0.9% 500 ML IV ONE (06:39)
--- NOTE | 2018-04-28 06:48 | P.HP ---
Certification for Inpatient Patient admitted to: Inpatient With expected LOS: >2 Midnights Patient will require the following post-hospital care: None Practitioner: I am a practitioner with admitting privileges, knowledge of patient current condition, hospital course, and medical plan of care. Services: Services provided to patient in accordance with Admission requirements found in Title 42 Section 412.3 of the Code of Federal Regulations Patient History Date of Service: 04/27/18 Reason for admission: Pneumonia; h/o of cholangiocarcinoma; hypokalemia History of Present Illness: Patient is a 72-year-old female who has a history of cholangiocarcinoma. She is getting supportive care at [facility]. She is scheduled for what I believe she is describing as a TIPS procedure on May 12. She has not been feeling well and has developed diarrhea over the last few days. She also has been a little short of breath. In the emergency room, she had workup performed which revealed bilateral pneumonia. He went ahead and started patient on IV antibiotics. Will go ahead and treat her and monitor her diarrhea. Will check her stool studies as well. Hopefully once we get her pneumonia treated adequately in her chest x-ray improves she will be able to be discharged and continue to follow up as an outpatient for her TIPS procedure that is scheduled on May 12 at [facility]. Allergies No Known Allergies Allergy (Verified 04/28/18 01:03) Home Medications: Aspirin [Aspir-Low] 81 mg PO DAILY 6PM 02/03/18 Atenolol [Tenormin*] 50 mg PO DAILY 6PM 02/03/18 Gabapentin [Gralise] 300 mg PO BID 02/03/18 Levothyroxine [Synthroid*] 137 mcg PO DAILY 02/03/18 PARoxetine HCl [Paxil*] 10 mg PO SEECOM 02/03/18 Pravastatin Sodium 40 mg PO SEECOM 02/03/18 Sucralfate [Carafate*] 1 gm PO AC 02/03/18 - Past Medical/Surgical History Has patient received pneumonia vaccine in the past: No Diabetic: No -: Cholangiocarcinoma -: hyperlipidemia -: hypertension -: thyroid problems -: neuropathy -: chronic UTIs -: acid reflux -: knee surgery -: shoulder sx - Family History Father Family History: Reviewed- Non-Contributory - Social History Smoking Status: Never smoker Alcohol use: No CD- Drugs: No Caffeine use: Yes Place of Residence: Home Review of Systems 10-point ROS is otherwise unremarkable Physical Examination - Vital Signs Temperature: 97.3 F Blood Pressure: 139/68 Pulse: 87 Respirations: 18 Pulse Ox (%): 92 - Physical Exam General: Alert, In no apparent distress, Oriented x2, Cooperative HEENT: Atraumatic, PERRLA, Mucous membr. moist/pink, EOMI, Sclerae nonicteric Neck: Supple, 2+ carotid pulse no bruit, No LAD, Without JVD or thyroid abnormality Respiratory: Diminished, Rhonchi/gurgles Cardiovascular: Regular rate/rhythm, Normal S1 S2, No murmurs Gastrointestinal: Normal bowel sounds, Soft and benign, Non-distended, No rebound, No guarding, Ascites Musculoskeletal: No clubbing, No swelling, No tenderness Integumentary: No rashes Neurological: Normal speech, Normal tone, Sensation intact, Cranial nerves 3-12 intact, Normal affect, Abnormal gait, Abnormal strength Lymphatics: No axilla or inguinal lymphadenopathy - Studies Laboratory Data (last 24 hrs) 04/27/18 16:28: PT 16.8 H, INR 1.42 04/27/18 16:28: Creatinine 0.90 04/27/18 16:28: WBC 4.0 L, Hgb 12.4, Hct 37.4, Plt Count 117 L 04/27/18 16:28: Sodium 136, Potassium 2.7 L*, BUN 10, Creatinine 0.80, Glucose 104, Total Bilirubin 0.9, AST 66 H, ALT 19, Alkaline Phosphatase 107, Lipase 140 Assessment & Plan - Problems (Diagnosis) (1) Bilateral pneumonia Current Visit: Yes Status: Acute (2) Cholangiocarcinoma Current Visit: Yes Status: Acute (3) Cirrhosis Current Visit: Yes Status: Acute (4) Diarrhea Current Visit: Yes Status: Acute (5) Hypoalbuminemia due to protein-calorie malnutrition Onset Date: 02/03/18 Current Visit: No Status: Acute (6) Hypokalemia Onset Date: 02/03/18 Current Visit: No Status: Acute (7) Hypomagnesemia Onset Date: 02/03/18 Current Visit: No Status: Acute - Plan 1. Continue with IV antibiotics 2. Awaiting sputum and blood culture 3. Repeat chest x-ray 4. Check stool studies and Lomotil x1 5. Echocardiogram to assess ejection fraction 6. Continue with nebs as needed 7. O2 per protocol 8. Monitor liver function along with ammonia level closely 9. Repeat labs including CBC and renal function in a.m. 10. GI and DVT prophylaxis Discharge Plan: Home Plan to discharge in: Greater than 2 days - Advance Directives Does patient have a Living Will: No Does patient have a Durable POA for Healthcare: No - Code Status/Comfort Care Code Status Assessed: Yes Code Status: Full Code Critical Care: No Time Spent Managing PTS Care (In Minutes): 50
[2018-04-28 06:50] LABS: Blood Morphology Comment NOT SEEN (NOT SEEN); Platelet Estimate DECR; Urine White Blood Cell Casts OK
[2018-04-28] MEDS ORDERED: DIPHENOX/ATROP SULF 1 TAB PO ONE ×2 (06:59→08:15)
[2018-04-28] MEDS ORDERED: KCL 20 MEQ/100 mL IVPB 20 MEQ/100 ML BAG IV SCH (07:00)
[2018-04-28] MEDS ORDERED: NA CHLORIDE 0.9% 1,000 ML IV SCH (08:00)
[2018-04-28] MEDS: ENOXAPARIN 40 MG/0.4 ML SQ SCH (09:00)
[2018-04-28 12:10] LABS: Magnesium 2.2 mg/dL (1.8-2.4); Phosphorus 2.6 mg/dL (2.5-4.9); Potassium 3.6 mmol/L (3.5-5.1)
[2018-04-28] MEDS: NA CHLORIDE 0.9% 1,000 ML IV SCH (14:54)
--- NOTE | 2018-04-28 15:23 | P.PN ---
Subjective Date of Service: 04/28/18 Chief Complaint: Pneumonia; h/o of cholangiocarcinoma; hypokalemia Patient seen and examined at bedside with RN. Chart reviewed. Case discussed with pulmonology at this time. Patient currently has been feeling weak and tired. Has no energy to get up. Has been coughing all night as well. Review of Systems 10-point ROS is otherwise unremarkable Physical Examination - Vital Signs Temperature: 97.3 F Blood Pressure: 133/61 Pulse: 81 Respirations: 20 Pulse Ox (%): 91 - Physical Exam General: Alert, Oriented x3, Mild distress HEENT: Atraumatic, PERRLA, EOMI Neck: Supple, JVD not distended Respiratory: Normal air movement, Expiratory wheezes, Inspiratory wheezes Cardiovascular: Regular rate/rhythm, Normal S1 S2 Gastrointestinal: Normal bowel sounds, No tenderness Musculoskeletal: No tenderness Integumentary: No rashes Neurological: Normal speech, Normal tone, Normal affect Lymphatics: No axilla or inguinal lymphadenopathy - Studies Laboratory Data (last 24 hrs) 04/27/18 16:28: PT 16.8 H, INR 1.42 04/27/18 16:28: Creatinine 0.90 04/27/18 16:28: WBC 4.0 L, Hgb 12.4, Hct 37.4, Plt Count 117 L 04/27/18 16:28: Sodium 136, Potassium 2.7 L*, BUN 10, Creatinine 0.80, Glucose 104, Total Bilirubin 0.9, AST 66 H, ALT 19, Alkaline Phosphatase 107, Lipase 140 Medications List Reviewed: Yes Assessment And Plan - Current Problems (Diagnosis) (1) Bilateral pneumonia Onset Date: 04/28/18 Current Visit: Yes Status: Acute Plan: Bilateral pneumonia on the chest x-ray -IV Levaquin at this time. -sputum and blood culture pending at this time -pulmonology consulted. Appreciated recommendations -pro calcitonin and is negative at this time however patient continues to have coughing will continue the antibiotics until sputum cultures negative Qualifiers: Pneumonia type: due to unspecified organism Lung location: unspecified part of lung Qualified Code(s): J18.9 - Pneumonia, unspecified organism (2) Cholangiocarcinoma Onset Date: 04/28/18 Current Visit: Yes Status: Acute Plan: Patient with history of cholangiocarcinoma. Has been scheduled for his TIPS procedure on May 12. Has been receiving palliative care at [facility]. Anticipate discharge before May 12 the patient can get the TIPS procedure done. (3) Cirrhosis Onset Date: 04/28/18 Current Visit: Yes Status: Chronic Plan: Stable at this time Qualifiers: Hepatic cirrhosis type: alcoholic cirrhosis Ascites presence: without ascites Qualified Code(s): K70.30 - Alcoholic cirrhosis of liver without ascites - Plan Patient is currently pending clinical improvement. Lactic acid is elevated at this time. Pro calcitonin is negative at this time. Patient however does have opacity in the chest x-ray which could be secondary to viral versus bacterial pneumonia. Will continue antibiotics for another 24 hr and reassess tomorrow morning. Anticipate discharge in 24-48 hr if symptoms improve and patient able to work with physical therapy Discharge Plan: Home Plan to discharge in: 48 Hours - Code Status/Comfort Care Code Status Assessed: Yes Critical Care: No
[2018-04-28] MEDS: Levofloxacin500mg IV 500 MG/100 ML BAG IV SCH (21:43)
[2018-04-29] MEDS: NA CHLORIDE 0.9% 1,000 ML IV SCH ×2 (01:28→12:09)
--- NOTE | 2018-04-29 07:56 | RAD REPORT ---
EXAM DESCRIPTION: [facility] Single View04/29/2018 6:41 am CLINICAL HISTORY: Shortness of breath no member COMPARISON: none FINDINGS: Small pleural effusions and mild bibasilar lung opacities are mildly improved. Heart is normal size
[2018-04-29 08:33] LABS: Phosphorus 2.2 mg/dL (2.5-4.9)
[2018-04-29] MEDS: ENOXAPARIN 40 MG/0.4 ML SQ SCH (08:37)
[2018-04-29] MEDS ORDERED: POTASSIUM 25 MEQ EFFERV TAB PO ONE (16:09)
[2018-04-29] MEDS ORDERED: POTASS/SODIUM PHOSPHATE 1 PKT POWD.PACK PO ONE (16:11)
--- NOTE | 2018-04-29 16:16 | P.DS ---
Admission Date: 04/27/18 Discharge Date: 04/29/18 Disposition: ROUTINE DISCHARGE Discharge Condition: GOOD Reason for Admission: Pneumonia; h/o of cholangiocarcinoma; hypokalemia - Problems (1) Bilateral pneumonia Onset Date: 04/28/18 Current Visit: Yes Status: Acute Qualifiers: Pneumonia type: due to unspecified organism Lung location: unspecified part of lung Qualified Code(s): J18.9 - Pneumonia, unspecified organism (2) Cholangiocarcinoma Onset Date: 04/28/18 Current Visit: Yes Status: Acute (3) Cirrhosis Onset Date: 04/28/18 Current Visit: Yes Status: Chronic Qualifiers: Hepatic cirrhosis type: alcoholic cirrhosis Ascites presence: without ascites Qualified Code(s): K70.30 - Alcoholic cirrhosis of liver without ascites Brief History of Present Illness: Patient is a 72-year-old female who has a history of cholangiocarcinoma. She is getting supportive care at [facility]. She is scheduled for what I believe she is describing as a TIPS procedure on May 12. She has not been feeling well and has developed diarrhea over the last few days. She also has been a little short of breath. In the emergency room, she had workup performed which revealed bilateral pneumonia. He went ahead and started patient on IV antibiotics. Will go ahead and treat her and monitor her diarrhea. Will check her stool studies as well. Hopefully once we get her pneumonia treated adequately in her chest x-ray improves she will be able to be discharged and continue to follow up as an outpatient for her TIPS procedure that is scheduled on May 12 at [facility]. Hospital Course: Overall during the hospital stay patient remained stable The patient was admitted to the hospital for bilateral pneumonia was treated with IV antibiotics here in the hospital. Had marked improvement in her symptoms. Pulmonology was consulted who agreed with the plan. Once patient had improvement in her symptoms she is discharged home under stable condition was asked to continue taking the azithromycin at home for next 10 days. Patient was also asked to follow up with her primary care provider in about 1-2 days post discharge. Patient is scheduled for a TIPS procedure on May 12 for cholangiocarcinoma. Patient was advised to complete the course of her antibiotics before the scheduled TIPS procedure. Vital Signs/Physical Exam: Temp Pulse Resp BP Pulse Ox 97 F 86 18 129/58 L 92 04/29/18 12:00 04/29/18 12:00 04/29/18 12:00 04/29/18 12:00 04/29/18 12:00 General: Alert, In no apparent distress HEENT: Atraumatic, PERRLA, EOMI Neck: Supple, JVD not distended Respiratory: Clear to auscultation bilaterally, Normal air movement Cardiovascular: Regular rate/rhythm, Normal S1 S2 Gastrointestinal: Normal bowel sounds, No tenderness Musculoskeletal: No tenderness Integumentary: No rashes Neurological: Normal speech, Normal tone, Normal affect Lymphatics: No axilla or inguinal lymphadenopathy Laboratory Data at Discharge: WBC 2.7 K/uL (4.3-10.9) L D 04/28/18 05:28 Hgb 11.4 g/dL (12.0-15.0) L 04/28/18 05:28 Hct 33.3 % (36.0-45.0) L 04/28/18 05:28 Plt Count 85 K/uL (152-406) L D 04/28/18 05:28 PT 16.8 SECONDS (9.5-12.5) H 04/27/18 16:28 INR 1.42 04/27/18 16:28 Sodium 135 mmol/L (136-145) L 04/29/18 07:58 Potassium 3.0 mmol/L (3.5-5.1) L 04/29/18 07:58 BUN 8 mg/dL (7-18) 04/29/18 07:58 Creatinine 0.70 mg/dL (0.55-1.3) 04/29/18 07:58 Glucose 87 mg/dL (74-106) 04/29/18 07:58 Phosphorus 2.2 mg/dL (2.5-4.9) L 04/29/18 07:58 Magnesium 2.0 mg/dL (1.8-2.4) 04/29/18 07:58 Total Bilirubin 0.7 mg/dL (0.2-1.0) 04/28/18 05:28 AST 54 U/L (15-37) H 04/28/18 05:28 ALT 17 U/L (12-78) 04/28/18 05:28 Alkaline Phosphatase 93 U/L (45-117) 04/28/18 05:28 Triglycerides 84 mg/dL (<150) 11/20/18 05:28 Cholesterol 119 mg/dL (<200) 04/28/18 05:28 HDL Cholesterol 22 mg/dL (40-60) L 04/28/18 05:28 Cholesterol/HDL Ratio 5.41 04/28/18 05:28 Lipase 140 U/L (73-393) 04/27/18 16:28 Home Medications: Aspirin [Aspir-Low] 81 mg PO DAILY 6PM 02/03/18 Atenolol [Tenormin*] 50 mg PO DAILY 6PM 02/03/18 Gabapentin [Gralise] 300 mg PO BID 02/03/18 Levothyroxine [Synthroid*] 137 mcg PO DAILY 02/03/18 PARoxetine HCl [Paxil*] 10 mg PO SEECOM 02/03/18 Pravastatin Sodium 40 mg PO SEECOM 02/03/18 Sucralfate [Carafate*] 1 gm PO AC 02/03/18 Azithromycin [Zithromax] 500 mg PO DAILY #14 tablet 04/29/18 New Medications: Azithromycin [Zithromax] 500 mg PO DAILY #14 tablet Patient Discharge Instructions: Please f.u with PCP and Dr Chang in 1 to 2 week post discharge. New medication. Azithromycin Diet: Regular Activity: Ad cherelle Followup: Morris Bishop MD [ACTIVE - CAN ADMIT] - 1 Week (Call for appointment.)
[2018-04-29 20:30] LABS: Potassium 3.2 mmol/L (3.5-5.1)
== END 2018-04-29 21:40 | disposition home or self-care (01) ==
LOC: ER 16:02 → INTOOBSV 21:45 → ERHOLD 21:45 → 2ND 22:38
PROVIDERS: ADMIT Hospitalist; ATTEND Hospitalist
DX: J18.9 Pneumonia, unspecified organism (principal); C22.1 Intrahepatic bile duct carcinoma; K74.60 Unspecified cirrhosis of liver; I10 Essential (primary) hypertension; E88.09 Other disorders of plasma-protein metabolism, not elsewhere classified; E87.6 Hypokalemia; E83.42 Hypomagnesemia
CPT/HCPCS: 36415 ×2; 51702; 71045 ×2; 74176; 80048 ×3; 80053; 80061; 80076; 81003; 82140; 83605 ×3; 83690; 83735 ×3; 84100 ×4; 84132; 84145; 85025 ×2; 85610; 87493; 94760 ×3; 96361; 96365; 96366; 96367; 96375; 97003; 97163; 97530; 99285; J2405 ×2; J3475; J7030 ×6; G0378; J1650